=== PATIENT | female | born 1965 | race Caucasian/White ===

== ENCOUNTER 2024-05-14 10:50 | Outpatient (REF) | payer OTHER, SELFPAY ==
--- NOTE | 2024-05-14 10:00 | ENDOMET_PTH ---
PATIENT: Fatoumata Lewis LOC: [facility] U#:[id number] AGE/SX: 58/F ROOM: RE05/14/[address]: Susana Grey MD : 1965 BED: DIS: 05/14/2024 SPEC #: [id number] RECD: 05/14/24 12:45 STATUS: YASMIN REQ #: [id number] CHIP: 05/14/24 10:[address]: Susana Grey DEPT: Surgical Specimen RECD BY: Farideh Vasquez ENTERED: 05/14/24 12:45 SP TYPE: Endomet OTHR DR: Unknown,Unknown Tissues: 1 - ENDOMETRIUM BX/JASONETTE Procedures: GROSS AND MICRO LEVEL 4 IMMUNOPEROXIDASE STAIN Comments: [id number] (PLEASE NEAL, STAT)
== END 2024-05-14 10:51 | disposition home or self-care (01) ==
LOC: LBN 10:50
PROVIDERS: Visit Provider Obstetrics & Gynecology
DX: N93.9 Abnormal uterine and vaginal bleeding, unspecified (principal); D07.0 Carcinoma in situ of endometrium
CPT/HCPCS: 88305; 88361

== ENCOUNTER 2024-09-08 14:58 | Outpatient (CLI) | payer OTHER, SELFPAY ==
[2024-09-08 12:38] LABS: CREATININE 0.7 mg/dL (0.55-1.02); Estimated GFR 100.19 (mL/min/1.73m2)
--- OUTSIDE RECORDS SUMMARY | 2024-09-08 15:01 | XMS_ITS | Encounter Summary ---
Author Organization [facility] Address [facility] [place] [address] Care Team Providers Care Line Service Technician Name Role Phone Rena Flower Primary Care Provider + Reason for Referral * Consultation (Routine) - New Request Specialty Diagnoses / Procedures Referred By Everett mendiola Referred To Contact Radiation Oncology Diagnoses Endometrial cancer Procedures Simulation for Radiation Therapy Planning Serina Bolivar MD [facility] [place] [address] [facility] Rad Onc Office [address] [place] [phone] Referral ID Status Reason Start Date Expiration Date Visits Requested Visits Authorized [id number] New Request Consult, Test & Treat 09/08/2024 09/08/2025 1 1 Reason for Visit * Consultation (Routine) - Closed Specialty Diagnoses / Procedures Referred By Contac t Referred To Contact Radiation Oncology Diagnoses Endometrial cancer Krissy Davies MD [facility] [place] [address] Serina Bolivar MD [address] [place] [address] [place] [address] Referral ID Status Reason Start Date Expiration Date V isits Requested Visits Authorized [id number] Closed Consult, Test & Treat 09/02/2024 09/02/2025 1 1 Encounter Details Date Type Department Care Team (Late st Contact Info) Description 09/08/2024 11:00 AM EST Office Visit Radiation Oncology at [address] [phone] Serina Bolivar MD [facility] [place] [address] Endometrial cancer Social History Tobacco Use Types Packs/Day Years Used Date Smoking Tobacco: Former Cigarettes B1300 Health Literacy Answer Date Recor ded How often do you need to hav e someone help you when you read instructions, pamphlets, or other written material from your doctor or pharmacy? Never 09/01/2024 [facility] Utilities Answer Date Recorded In the past 12 months has th e electric, gas, oil, or water company threatened to shut off services in your home? No 09/01/2024 Overall Financial Resource Strain (CARDIA) Answe r Date Recorded How hard is it for you to pa y for the very basics like food, housing, medical care, and heating? Not very hard 09/01/2024 Hunger Vital Sign Answer Date Recorded Within the past 12 months, y ou worried that your food would run out before you got the money to buy more. Never true 09/01/19 25 Within the past 12 months, t he food you bought just didn't last and you didn't have money to get more. Never true 09/01/2024 PRAPARE - Transportation Answer Date Re corded In the past 12 months, has l ack of transportation kept you from medical appointments or from getting medications? No 08/20 In the past 12 months, has l ack of transportation kept you from meetings, work, or from getting things needed for daily living? No 09/01/2024 Housing Stability Vital Sign Answer Deep e Recorded In the last 12 months, was t here a time when you were not able to pay the mortgage or rent on time? No 09/01/2024 Number of Times Moved in the Last Year Not on fi le 09/01/2024 At any time in the past 12 m [facility], were you homeless or living in a retirement (including now)? No 09/01/2024 Sex and Gender Information Value Date Recorded Sex Assigned at Not on file Gender Identity Not on file Sexual Orientation Not on file documented as of this encounter Plan of Treatment Upcoming Encounters Date Type Department Care Team (Late st Contact Info) Description 09/09/2024 8:30 AM EST Scheduled View Only Radiation Oncology at [address] [phone] [facility] 09/09/2024 9:00 AM EST Ancillary Appointment Radiation Oncology at [address] [phone] Serina Bolivar MD [facility] [place] [address] 09/09/2024 9:00 AM EST Scheduled View Only Radiation Oncology at [address] [phone] Scheduled Orders Name Type Priority Associated Diagnoses Orde r Schedule Creatinine Lab Routine Endometrial cancer Expected: 09/08/2024, Expires: 03/10/2025 Simulation for Radiation Therapy Planning Radiation Oncology Routine Endometrial cancer Expected: 09/09/2024, Expires: 03/11/2025 documented as of this encounter Visit Diagnoses Diagnosis Endometrial cancer Malignant neoplasm of corpus uteri, except isthmus documented in this encounter Care Teams Line Service Technician Relationship Specialty Start Date End Date Rena Flower PA [address] [place] [address] [place] [address] PCP - General Internal Medicine 08/11/24 documented as of this encounter
--- OUTSIDE RECORDS SUMMARY | 2024-09-08 15:01 | XMS_ITS | Encounter Summary ---
Author Organization Formerly [facility] [place] [address] Care Team Providers Care Mechanical Lead Name Role Phone Rena Flower Primary Care Provider + Reason for Referral * Consultation (Routine) - Closed Specialty Diagnoses / Procedures Referred By Everett mendiola Referred To Contact Radiation Oncology Diagnoses Endometrial cancer Krissy Davies MD [facility] [place] [address] Serina Bolivar MD [address] [place] [address] [place] [address] Referral ID Status Reason Start Date Expiration Date V isits Requested Visits Authorized [id number] Closed Consult, Test & Treat 09/02/2024 09/02/2025 1 1 Reason for Visit * Reason Comments Radiation Consult * Consultation (Routine) - Closed Specialty Diagnoses / Procedures Referred By Contac t Referred To Contact Radiation Oncology Diagnoses Malignant neoplasm of endometrium Marianna Bansal MD [address] [place] [address] [address] [place] [address] [facility] [place] [address] Referral ID Status Reason Start Date Expiration Date V isits Requested Visits Authorized [id number] Closed Consult, Test & Treat 08/12/2024 08/12/2025 1 1 Encounter Details Date Type Department Care Team (Late st Contact Info) Description 09/01/2024 11:00 AM EST Office Visit Radiation Oncology at [facility] [place] [address] Krissy Davies MD [facility] [place] [address] Endometrial cancer Social History Tobacco Use Types Packs/Day Years Used Date Smoking Tobacco: Former Cigarettes Tobacco Cessation:Counseling Given: Not Answered B1300 Health Literacy Answer Date Recor ded How often do you need to hav e someone help you when you read instructions, pamphlets, or other written material from your doctor or pharmacy? Never 09/01/2024 [facility] Utilities Answer Date Recorded In the [...] any time in the past 12 m [facility], were you homeless or living in a [facility] (including now)? No 09/01/2024 Sex and Gender Information Value Date Recorded Sex Assigned at Not on file Gender Identity Not on file Sexual Orientation Not on file documented as of this encounter Last Filed Vital Signs Vital Sign Reading Time Taken Comments Blood Pressure 134/72 09/01/2024 10:30 AM EST Pulse 74 09/01/2024 10:30 AM EST Temperature 36.2 ??C (97.1 ??F) 09/01/2024 10:[address] Respiratory Rate 21 09/01/2024 10:30 AM EST Oxygen Saturation 100% 09/01/2024 10:30 AM EST Inhaled Oxygen Concentration - - Weight 69.9 kg (154 lb 3.2 oz) 09/01/2024 10:30 AM EST Height - - Body Mass Index - - documented in this encounter Progress Notes * Lyric Juarez, RN - 09/01/2024 11:00 AM EST RADIATION ONCOLOGY NURSING INITIAL NURSING ASSESSMENT IDENTIFICATION: Fatoumata Lewis is a 58 y.o. female with Endometrial Cancer FIGO grade 3 llC PRESENTING SYMPTOMS/CHIEF COMPLAINT: Pain in pelvis continues with abnormal bleeding 04/12 [facility] Total Hysterectomy 07/02/24 MD Marianna Chambers [facility] Smoking History: Yes Quit 10 years 2013 0.5 pack years Drug History: No Alcohol History: Yes 2 beers a day Family History of Cancer: Sister Polycythemia PGM Breast Cancer MGF Unknown Squamous Cell Cancer Menarche age: 12 Any oral contraceptive use: yes < than year Currently : No history: G 3 P 2 Age at 1st delivery: 19 Breast feeding: No Menopause age: 11/24 Previous breast biopsies: Hormones:No Colonoscopy : None - Yes to Cologuard REVIEW OF SYSTEMS: Review of Systems Constitutional: Positive for fatigue (Post surgery 07/02/24). HENT: Negative. Eyes: Positive for eye problems (prescription glasses). Respiratory: Negative. Cardiovascular: Negative. Gastrointestinal: Positive for constipation. Endocrine: Negative. Genitourinary: Positive for hematuria (slight - one panty liner a day), menstrual problem (LMP 07/13), pelvic pain (Histroy of pelvic discomfort pre Hysterectomy) and vaginal bleeding (very small amount post surgery one pany liner a day). Musculoskeletal: Positive for back pain (history of back issues). Skin: Positive for rash (History of Psoriasis scalp). Neurological: Negative. Hematological: Bruises/bleeds easily. Psychiatric/Behavioral: Positive for depression (Medication Citalopram). The patient is nervous/anxious. IN THE PAST 12 MONTHS HAVE YOU: Fallen more than one time? No Injured yourself as result of the fall? No Experienced difficulty with walking/problems with balance? No Do you use any assistive devices? No Any history of collagen vascular diseases:No Any Implanted Devices/Hardware: No If yes please put alert in ARIA patient summary Prior Radiotherapy: No Prior Chemotherapy: No Prior Hormone Therapy: No LEARNING ASSESSMENT REVIEWED: ADVANCED DIRECTIVE: None Pateint states she has the information to fill out PAIN ASSESSMENT: [0] out of 10 *eD-H Adult PCS Flow Sheet if 4 or above SOCIAL ASSESSMENT: See [facility] social assessment information entered. Support Systems: to Imtiaz Lewis for 10 years Barriers to treatment: Patient lives in [facility] 3 hours away. [facility] Referrals/Interventions: None at this time RADIATION SPECIFIC TEACHING: Yes [facility]iation [facility] and You Site specific teaching : Other: PLAN: New patient consult with Dr Krissy Davies * Rian Wilde - 09/01/2024 11:00 AM EST Images from the original note were not included. RADIATION ONCOLOGY CONSULT NOTE Date: 09/01/24 Patient name: Fatoumata Lewis Provider: Krissy Davies MD Consult Requested by: Marianna Bansal MD Diagnosis: Endometrioid adenocarcinoma of the uterus, grade III, pT2N0(sn)M0, FIGO stage II (2018) Treatment Summary: 1. Robot-assisted TLH/BSO with bilateral SLNBx (07/02/2024) History of Presenting Illness: Fatoumata Lewis is a 58 y.o. female with a recent diagnosis of an endometrioid adenocarcinoma ofthe uterus, who presents for consultation regarding the role of radiation therapy in the managementof her malignancy. According to the patient, she initially presented with complaints of postmenopausal bleeding of oneyear duration. Pelvic ultrasound (05/09/2024) revealed a thickened endometrial stripe of 2.1 cm and possible endometrial mass with invasion into the myometrium. Subsequent endometrial biopsy (05/14/2024) revealed a poorly differentiated carcinoma, favoring an endometrioid type, possibly with a POLE mutation given the histological appearance. Staging CT chest (06/11/2024), abdomen and pelvis (05/29/2024) identified the known endometrial cancer as well as a borderline left external iliac node, without definitive evidence of lymphadenopathy or metastatic disease. She subsequently underwent a robot-assisted diagnostic TLH/BSO with bilateral SLNBx (07/02/2024). Surgical pathology confirmed a gradeIII endometrioid adenocarcinoma of the uterus with 20/26mm (77%) myometrial invasion. The lower uterine segment and cervical stroma was involved and extensive LVSI was present. 0/6 lymph nodes were involved. She presents today for a second opinion on consideration of adjuvant radiation. Upon review of systems, the patient is recovering well from surgery and denied any major complaintsat this time. Reports some fatigue as well as intermittent vaginal discharge. Denied any vaginal bleeding. Denied any abdominal/pelvic pain, urinary frequency or urgency, diarrhea, bloody or dark stool. Also denied any loss of appetite or involuntary weight loss. The patient has no history of connective tissue diseases or implanted devices and has never had radiation for any reason. Family history is significant for breast cancer in her paternal grandmother, small-cell lung cancer in her paternal grandfather, and polycythemia vera in her sister. Patient is a former smoker, and quit 10 years ago. Review of Systems: Review of Systems Constitutional: Positive for malaise/fatigue. Negative for anorexia, diaphoresis, fever, weight loss and chills. Respiratory: Negative for cough, shortness of breath and chest discomfort. Genitourinary: Positive for vaginal discharge. Negative for stress incontinence and urge incontinence. Gastrointestinal: Positive for constipation. Negative for abdominal discomfort, vomiting, nausea and diarrhea. Psychiatric/Behavioral: Positive for depression and physiological symptoms of anxiety. Musculoskeletal: Positive for joint pain. Negative for stiffness and myalgias. Cardiovascular: Negative for palpitations and near-syncope. Neurological: Negative for headaches. There are no problems to display for this patient. No past medical history on file. No past surgical history on file. Medications 09/01/24 1030 Medication Sig Taking? VITAMIN B COMPLEX-100 ORAL Take 1 tablet by mouth Daily @ 0600. Yes acetaminophen (Tylenol) 500 mg tablet Take 1,000 mg by mouth Every 8 hours as needed. Yes cholecalciferoL (Vitamin D3) 1,000 unit tablet Take 1,000 Units by mouth Daily @ 0600. Yes citalopram (CeleXA) 20 mg tablet Take 10 mg by mouth Daily @ 0600. Yes DOCOSAHEXAENOIC ACID ORAL Take by mouth. Yes docusate sodium (Colace) 100 mg capsule Take 1 capsule by mouth 2 times daily as needed. Yes ibuprofen (Advil) 800 mg tablet Take 800 mg by mouth Every 8 hours as needed. Yes magnesium oxide (Mag-Ox) 400 mg (241.3 mg magnesium) Tablet Take 400 mg by mouth Daily @ 0600. Yes polyethylene glycoL (Miralax) 17 gram oral powder packet Take 17 g by mouth daily. Yes No Known Allergies Social History Socioeconomic History Marital status: Spouse name: Not on file Number of children: 2 Years of education: 12 Highest education level: Not on file Occupational History Not on file Tobacco Use Smoking status: Former Types: Cigarettes Smokeless tobacco: Not on file Vaping Use Vaping status: Never Used Substance and Sexual Activity Alcohol use: Not on file Drug use: Not on file Sexual activity: Not on file Other Topics Concern Not on file Social History Narrative Not on file Social Determinants of Health Financial Resource Strain: Low Risk (09/01/2024) Overall Financial Resource Strain (CARDIA) Difficulty of Paying Living Expenses: Not very hard Food Insecurity: No Food Insecurity (09/01/2024) Hunger Vital Sign Worried About Running Out of Food in the Last Year: Never true Ran Out of Food in the Last Year: Never true Transportation Needs: No Transportation Needs (09/01/2024) PRAPARE - Transportation Lack of Transportation (Medical): No Lack of Transportation (Non-Medical): No Physical Activity: Not on file Intimate Partner Violence: Not on file Housing Stability: Unknown (09/01/2024) Housing Stability Vital Sign Unable to Pay for Housing in the Last Year: No Number of Times Moved in the Last Year: Not on file Homeless in the Last Year: No No family history on file. Physical Examination: Visit Vitals BP 134/72 (Patient Position: Sitting) Pulse 74 Temp 36.2 ??C (97.1 ??F) (Temporal) Resp 21 Wt 69.9 kg (154 lb 3.2 oz) SpO2 100% Physical Exam Constitutional: General: She is not in acute distress. Appearance: Normal appearance. HENT: Head: Normocephalic and atraumatic. Eyes: Extraocular Movements: Extraocular movements intact. Pupils: Pupils are equal, round, and reactive to light. Pulmonary: Effort: Pulmonary effort is normal. Genitourinary: Comments: MANAGER SUPPORT examination deferred Musculoskeletal: General: Normal range of motion. Cervical back: Neck supple. Skin: General: Skin is warm and dry. Neurological: General: No focal deficit present. Mental Status: She is alert. Psychiatric: Mood and Affect: Mood normal. Imaging and Labs: SURGICAL PATHOLOGY (05/14/2024) A. ENDOMETRIUM, BIOPSY: - Endometrial carcinoma, high-grade. See comment Histologic sections show a poorly differentiated carcinoma in a sheet-like growth pattern. No overtgland formation is appreciated, but focal dyskeratotic cells and areas suspicious for keratinization are present. The tumor does not demonstrate marked pleomorphism, but does have areas of necrosis and scattered single large atypical cells. The majority of the sample contains sheets of moderately sized cells with increased N/C ratios, irregular nuclear contours, and prominent nucleoli. Abundant apoptotic debris and mitotic figures are present. Smooth muscle is also present, but is favored to represent benign intervening fibers and not a sarcomatous element. Immunohistochemically, the lack of p16 and p63 expression argues against a cervical squamous cell carcinoma. The presence of diffuse pancytokeratin argues against a dedifferentiated endometrial carcinoma, however with a lack of ER expression, this is not entirely excluded. The lack of aberrant p53 argues against a solid variant of serous carcinoma. The increased Ki-67 supports the morphologic impression of a high-grade lesion. MMR testing is retained, see interpretation below. Taken together, the immunohistochemical staining and the morphologic impression favor a high-grade endometrial adenocarcinoma with features concerning for myoinvasion. The differential includes endometrioid type, FIGO Grade 3; however, the morphology and immunohistochemistry pattern defies clear classification, raising the possibility of a POLE-mutated carcinoma (PMID: 56727506). Further evaluation may help inform molecular tumor classification, and can be pursued upon request. Scale Model Maker slides of this case were reviewed at the intradepartmental consultation conference. CT ABDOMEN AND PELVIS WITH IV CONTRAST (05/29/2024) IMPRESSION: 1. Heterogeneously hypoenhancing mass centered within the uterus consistent with pathology proven endometrial cancer. 2. Borderline enlarged left external iliac lymph nodes measure up to 0.9 cm short axis. These may be reactive or could represent hilton spread of malignancy. 3. Atherosclerosis CT CHEST (06/11/2024) IMPRESSION: No specific finding of metastasis, noting very small indeterminate solid pulmonary nodule measuringup to 2 mm which are unlikely to represent metastatic disease. Attention on follow-up is advised. RECOMMENDATIONS: Follow-up chest CT in 6 months or per clinical protocol. SURGICAL PATHOLOGY (07/02/2024) SPECIMEN Procedure: Total hysterectomy and bilateral salpingo-oophorectomy TUMOR Histologic Type: Endometrioid carcinoma, NOS Histologic Grade: FIGO grade 3 Myometrial Invasion: Present Depth of Myometrial Invasion: 20 mm Myometrial Thickness: 26 mm Percentage of Myometrial Invasion: Estimated to be 50% or greater Uterine Serosa Involvement: Not identified Lower Uterine Segment Involvement: Present, myoinvasive Cervical Stromal Involvement: Present Depth of Cervical Stroma Invasion: 10.0 mm Cervical Stroma Thickness: 16.0 mm Other Tissue / Organ Involvement: Not identified Peritoneal / Ascitic Fluid: Negative for malignant cells Lymphatic and / or Vascular Invasion: Present : Extensive / substantial (greater than or equal to 5 vessel involvement) MARGINS Margin Status: All margins negative for invasive carcinoma Closest Margin(s) to Invasive Carcinoma: Parametrial / paracervical Distance from Invasive Carcinoma to Closest Margin: At least: 6.0 mm REGIONAL LYMPH NODES Regional Lymph Node Status: : All regional lymph nodes negative for tumor cells Lymph Nodes Examined: Total Number of Pelvic Nodes Examined: 6 Number of Pelvic [place] Nodes Examined: 6 Total Number of Para-aortic Nodes Examined: 1 Number of Para-aortic [place] Nodes Examined: 1 pTNM CLASSIFICATION (AJCC 8th Edition) Reporting of pT, pN, and (when applicable) pM categories is based on information available to the pathologist at the time the report is issued. As per the AJCC (Chapter 1, 8th Ed.) it is the managingphysician???s responsibility to establish the final pathologic stage based upon all pertinent information, including but potentially not limited to this pathology report. pT Category: pT2 pN Category: pN0 N Suffix: (sn) FIGO STAGE FIGO Stage: IIC Assessment: Fatoumata Leiws is a 58 y.o. female with a recent diagnosis of an endometrioid adenocarcinoma of the uterus, who presents for consultation regarding the role of radiation therapy in the management of her malignancy. She was found to have several risk factors that put her at a higher risk for recurrence including high-grade, deep myometrial invasion, cervical stromal invasion and extensive LVSI. Extensive LVSI in particular has been shown to be a strong independent prognostic factorfor pelvic regional recurrences (PMID: 41082832; PMID: 61903690). As such, NCCN guidelines recommend external beam radiation as the preferred approach in these patients. In line with this, my recommendation is for 45Gy/25fx to the pelvis. The techniques, indications, risks and benefits of radiation therapy were explained to the patient at length and she expressed understanding. All questions were answered to her satisfaction and she is amenable to proceeding with pelvic radiation. As she lives in [place], [place] she would like to consider treatment closer to home. We will therefore refer her to Dr. Serina Bolivar at our [facility] facility for discussion of treatment. We look forward to seeing Ms. Lewis again if there is anything that we can do to be of assistancein the future. Plan: - Referral to Dr. Serina Bolivar The consultation time was 60 minutes, 45 minutes in counseling. Thank you, Dr. Marianna Bansal , for allowing us to participate in the care of this pleasant patient. Rian Sandoval, PhD MD-PhD M3 medical student Radiation Oncology 09/01/24 I have seen the patient in person and reviewed the student's above history and I agree with the details as written. The assessment and plan were formulated in discussion with me and I agree with themas documented. Krissy Davies MD 09/02/24 documented in this encounter Plan of Treatment Upcoming Encounters Date Type Department Care Team (Late st Contact Info) Description 09/09/2024 8:30 AM EST Scheduled View Only Radiation Oncology at [address] [phone] Rad Nurse[facility] 09/09/2024 9:00 AM EST Ancillary Appointment Radiation Oncology at [address] [phone] Serina Bolivar MD [facility] RAD[facility]ATION [facility]COLOGY [facility] [place] [address] 09/09/2024 9:00 AM EST Scheduled View Only Radiation Oncology at [address] [phone] Scheduled Referrals Name Type Priority Associated Diagnoses Orde r Schedule Referral to Radiation Oncology Outpatient Referral Routine Endometrial cancer Ordered: 09/02/2024 documented as of this encounter Visit Diagnoses Diagnosis Endometrial cancer Malignant neoplasm of corpus uteri, except isthmus documented in this encounter Care Teams Mechanical Lead Relationship Specialty Start Date End Date Rena Flower PA [address] [place] [address] [place] [address] PCP - General Internal Medicine 08/11/24 documented as of this encounter
--- OUTSIDE RECORDS SUMMARY | 2024-09-08 15:01 | XMS_ITS | Encounter Summary ---
Author Organization [facility] Prabhakar [place] [address] Care Team Providers Care Highway Research Engineer Name Role Phone Unavailable Primary Care Provider Unavailabl e Encounter Details Date Type Department Care Team (Late st Contact Info) Description 06/11/2024 Ancillary Procedure Radiology Library at [facility] [place] [address] Lazaro Borjas MD [facility] [place] [address] Social History Tobacco Use Types Packs/Day Years Used Date Smoking Tobacco: Never Assessed Sex and Gender Information Value Date Recorded Sex Assigned at Not on file Gender Identity Not on file Sexual Orientation Not on file documented as of this encounter Plan of Treatment Upcoming Encounters Date Type Department Care Team (Late st Contact Info) Description 09/09/2024 8:30 AM EST Scheduled View Only Radiation Oncology at [address] [phone] St Kevin Reyes 09/09/2024 9:00 AM EST Ancillary Appointment Radiation Oncology at [address] [phone] Serina Bolivar MD [facility] [place] [address] 09/09/2024 9:00 AM EST Scheduled View Only Radiation Oncology at [address] [phone] documented as of this encounter Procedures Procedure Name Priority Date/Time Associated Diagnosis Comments FILM LIBRARY STORAGE ONLY CT CHEST Routine 06/11/2024 12:00 AM EDT documented in this encounter Results * Film Library- Storage Only CT Chest (06/11/2024 12:00 AM EDT) 07/19/2024 9:23 PM EST Narrative RAD - 07/19/2024 9:23 PM EST This exam is auto-finalizing. It's purpose is for storage only. Lazaro Borjas MD IMG FILM LIBRARY ORD ERABLES [place], [place] documented in this encounter Visit Diagnoses Not on filedocumented in this encounter
--- OUTSIDE RECORDS SUMMARY | 2024-09-08 15:01 | XMS_ITS | Continuity of Care Document ---
Author Organization [facility] Address [address] [place] [address] Care Team Providers Care Rubber Thread Spooler Name Role Phone Ching Rena C Primary Care Physician [phone] Encounter [facility] Date(s): 04/16/24 - 04/16/[address] [address] Discharge Disposition: Home Allergies, Adverse Reactions, Alerts No Known Medication Allergies Assessment and Plan Future Appointments Future Scheduled Tests Radiology* MG Mammo Screening Bilateral w/ Jean Claude 04/16/24 * US Pelvic Non OB Comp w/ Transvag 04/16/24 Immunizations Given and Recorded Vaccine Date Status Refusal Reason SARS-CoV-2 (COVID-19) mRNA-1273 vaccine 11/16/20 R ecorded SARS-CoV-2 (COVID-19) mRNA-1273 vaccine 10/18/20 R ecorded influenza virus vaccine, live 06/18/20 Recorded tetanus/diphth/pertuss (Tdap) adult/adol 05/02/19 Recorded Medications citalopram 20 mg oral tablet 20 mg = 1 tab, Oral, Daily, # 90 tab, 3 Refill(s), Pharmacy: [id number] Start Date: 02/12/23 Status: Ordered clotrimazole 1% topical cream 1 ade, Topical, BID, apply to affected and surrounding areas of skin topically two times per day once in morning and evening, # 15 g, 0 Refill(s) Start Date: 02/03/22 Status: Ordered garlic See Instructions, 0 Refill(s) Start Date: 02/22/23 Status: Ordered magnesium oxide 250 mg oral tablet 250 mg = 1 tab, Oral, Daily, 0 Refill(s) Start Date: 02/03/22 Status: Ordered [place]-3 Fish Oil 1,000 mg =, Oral, BID, 0 Refill(s) Start Date: 02/03/22 Status: Ordered Vitamin B Complex 100 1 daily, 0 Refill(s) Start Date: 04/16/24 Status: Ordered Vitamin D3 25 mcg =, Oral, Daily, 0 Refill(s) Start Date: 02/03/22 Status: Ordered Problem List Condition Confirmation Course Effective Dates Status Health St atus Informant Constipation Confirmed 11/29/18 Active Low back pain Confirmed 11/29/18 Active Mixed anxiety and depressive disorder Confirmed 11/29/18 Active Well adult exam Confirmed Active Screening for breast cancer Confirmed Active Screening for colon cancer Confirmed Active Social History Social History Type Response Tobacco Former tobacco user Tobacco Use:. 1/2 ppd x 10 years, quit for 10 years, 1/2 x 6 years per day. Total pack years: 8. 1 Sex Female Sex Representation Female (finding) 1quit aug 2014 Patient Care team information Care Team Personnel Name: Rena Flower Position: Physician Member Role: Primary Care Physician Address: [facility] [place] [address]- Care Team Related Persons Name: RIVER OBANDO Insurance Providers Guarantor name: RANJAN OBANDO Health Plan Information #: 1 Payer: [employer] Member Number: NA Policy Number: NA Health Plan Information #: 2 Payer: [facility] Member Number: NA Policy Number: NA
--- OUTSIDE RECORDS SUMMARY | 2024-09-08 15:01 | XMS_ITS | Continuity of Care Document ---
Author Organization [facility] Address [address] [place] [address] Care Team Providers Care Acupuncture Physician Name Role Phone Rena Flower Primary Care Physician Encounter [facility]CT[facility]_[place] Date(s): 04/16/24 - 04/16/[address] [address] Discharge Disposition: Home or Self Care Attending Physician: Rena Flower Admitting Physician: Rena Flower Referring Physician: Rena Flower Allergies, Adverse Reactions, Alerts No Known Medication Allergies Assessment and Plan Future Appointments Diagnostic Tests Pending * PAP Test [facility] 04/16/24 Future Scheduled Tests Radiology* MG Mammo Screening [...] Daily, # 90 tab, 3 Refill(s), Pharmacy: [id number] Start Date: 02/12/23 Status: Ordered clotrimazole 1% [...] 0 Refill(s) Start Date: 02/03/22 Status: Ordered [place]-3 Fish Oil 1,000 mg =, Oral, BID, [...] Active Screening for colon cancer Confirmed Active Results Laboratory List Name Date Automated Diff 04/16/24 CBC w/ Diff 04/16/24 Comprehensive Metabolic Panel (CMP) 04/16 FSH [facility] 04/16/24 Lipid Panel 04/16/24 Thyroid Stimulating Hormone (TSH) 4 Most recent to oldest [Reference Range]: 1 WBC [5.0-10.0 x10^3/mcL] 4.9 x10^3/mcL *LOW* (04/16/24 8:42 AM) RBC [4.1-5.3 x10^6/mcL] 4.4 x10^6/mcL (04/16/24 8:42 AM) Neutro Auto [40.0-75.0 %] 43.6 % (04/16/24 8:42 AM) Lymph Auto [20.0-50.0 %] 40.0 % (04/16/24 8:42 AM) Ritchie Auto [2.0-15.0 %] 10.1 % (04/16/24 8:42 AM) Basophil Auto [0.0-1.0 %] 1.0 % (04/16/24 8:42 AM) BUN [7-18 mg/dL] 14 mg/dL (04/16/24 8:42 AM) Cholesterol Total [50-200 mg/dL] 252 mg/ dL *HI* (04/16/24 8:42 AM) LDL [0-130 mg/dL] 139 mg/dL *HI* (04/16/24 8:42 AM) Glucose Level [74-106 mg/dL] 91 mg/dL (04/16/24 8:42 AM) Potassium Level [3.5-5.1 mmol/L] 4.1 mmo l/L (04/16/24 8:42 AM) MCV [80.0-96.0 fL] 94.8 fL (04/16/24 8:42 AM) HDL [40-60 mg/dL] 101 mg/dL *HI* (04/16/24 8:42 AM) AST [15-37 unit/L] 20 unit/L (04/16/24 8:42 AM) ALT [14-59 unit/L] 23 unit/L (04/16/24 8:42 AM) MCHC [31.0-35.0 g/dL] 33.7 g/dL (04/16/24 8:42 AM) Sodium Level [136-145 mmol/L] 141 mmol/L (04/16/24 8:42 AM) Hct [37.0-47.0 %] 41.9 % (04/16/24 8:42 AM) Triglycerides [0-150 mg/dL] 61 mg/dL (04/16/24 8:42 AM) Calcium Level [8.5-10.1 mg/dL] 8.9 mg/dL (04/16/24 8:42 AM) Albumin Level [3.4-5.0 g/dL] 3.8 g/dL (04/16/24 8:42 AM) Protein Total [6.4-8.2 g/dL] 7.8 g/dL (04/16/24 8:42 AM) MCH [26.0-32.0 pg] 31.9 pg (04/16/24 8:42 AM) Neutro Absolute 2.1 x10^3/mcL *NA* (04/16/24 8:42 AM) Bilirubin Total [0.2-1.0 mg/dL] 0.3 mg/d L (04/16/24 8:42 AM) Hgb [12.0-16.0 g/dL] 14.1 g/dL (04/16/24 8:42 AM) Alk Phos [46-146 unit/L] 77 unit/L (04/16/24 8:42 AM) Platelets [130-450 x10^3/mcL] 233 x10^3/ mcL (04/16/24 8:42 AM) CO2 [21-32 mmol/L] 28 mmol/L (04/16/24 8:42 AM) TSH [0.358-3.740 mcIntlUnit/mL] 2.380 mc IntlUnit/mL (04/16/24 8:42 AM) eGFR Non-AA [>=60] 108 (04/16/24 8:42 AM) eGFR AA [>=60] 108 (04/16/24 8:42 AM) Chloride Level [98-107 mmol/L] 104 mmol/ L (04/16/24 8:42 AM) RDW-CV [11.5-14.5 %] 12.2 % (04/16/24 8:42 AM) Imm Gran Auto [0.0-0.9 %] 0.2 % (04/16/24 8:42 AM) Creatinine Level [0.55-1.02 mg/dL] 0.52 mg/dL *LOW* (04/16/24 8:42 AM) [facility]SH [facility] [See Note mIntlUnit/mL] 110.6 mI ntlUnit/mL 1 *NA* (04/16/24 8:42 AM) Eos, Auto [1.0-6.0 %] 5.1 % (04/16/24 8:42 AM) 1Result Comment: NOTE: Female [facility]SH Reference Ranges (Menstruating): PHYSIOLOGICAL STATUS REFERENCE RANGE Follicular (-12 to -4 days): 2.5 - 10.2 mIU/mL Midcycle (-3 to +2 days): 3.4 - 33.4 mIU/mL Luteal (+4 to +12 days): 1.5 - 9.1 mIU/mL Postmenopausal: 23.0 - 116.3 mIU/mL Reference Ranges for pediatric non-menstruating female patients have not been established. Test performed [place] [address] Social History Social History Type Response Tobacco Former tobacco user Tobacco Use:. 1/2 ppd x 10 years, quit for 10 years, 1/2 x 6 years per day. Total pack years: 8. 1 Sex Female Sex Representation Female (finding) 1quit aug 2014 Patient Care team information Care Team Personnel Name: Rena Floewr Position: Physician Member Role: Primary Care Physician Address: [facility] [place] [address]- Care Team Related Persons Name: RIVER OBANDO Insurance Providers Guarantor name: RANJAN OBANDO Health Plan Information #: 1 Payer: [employer] Member Number: [id number] Policy Number: NA Health Plan Information #: 2 Payer: [employer] Member Number: NA Policy Number: NA Health Plan Information #: 3 [facility] Member Number: [id number] Policy Number: NA
--- OUTSIDE RECORDS SUMMARY | 2024-09-08 15:01 | XMS_ITS | Encounter Summary ---
Author Organization [facility] [place] [address] Care Team Providers Care Aromatherapist Name Role Phone Unavailable Primary Care Provider Unavailabl e Encounter Details Date Type Department Care Team (Late st Contact Info) Description 06/11/2024 Interpretation Only Radiology Library at [facility] [place] [address] Lazaro Borjas MD [facility] [place] [address] Social History Tobacco Use Types Packs/Day Years [...] EST Scheduled View Only Radiation Oncology at [address] [phone] St Kevin Reyes 09/09/2024 9:00 AM EST Ancillary Appointment Radiation Oncology at [address] [phone] Serina Bolivar MD [facility] [place] [address] 09/09/2024 9:00 AM EST Scheduled View Only Radiation Oncology at [address] [phone] documented as of this encounter Procedures Procedure [...] Borjas MD IMG FILM LIBRARY ORD ERABLES [place], [place] documented in this encounter Visit Diagnoses Not on filedocumented in this encounter
--- OUTSIDE RECORDS SUMMARY | 2024-09-08 15:01 | XMS_ITS | Continuity of Care Document ---
Author Organization [facility] Address [address] [place] [address] Care Team Providers Care Dinkey Locomotive Engineer Name Role Phone ChelseaaniaRena holley Primary Care Physician [phone] Encounter [facility]CTY[place] Date(s): 05/04/23 - 05/04/23 [facility] [address] [place] [address] us Encounter Diagnosis Screening for breast cancer(Discharge Diagnosis) - 05/04/23 Discharge Disposition: Home or Self Care Attending Physician: Viri Myles NP Admitting Physician: Viri Myles NP Referring Physician: Viri Myles BARK SCALER Allergies, Adverse Reactions, Alerts No Known Medication Allergies Assessment and Plan Future Appointments Future Scheduled Tests Laboratory* Basic Metabolic Panel 02/22/23 * Lipid Panel 02/22/23 Immunizations Given and Recorded Vaccine Date Status Refusal Reason SARS-CoV-2 (COVID-19) mRNA-1273 vaccine 11/16/20 R ecorded SARS-CoV-2 (COVID-19) mRNA-1273 vaccine 10/18/20 R ecorded influenza virus vaccine, live 06/18/20 Recorded tetanus/diphth/pertuss (Tdap) adult/adol 05/02/19 Recorded Medications citalopram 20 mg oral tablet 20 mg = 1 tab, Oral, Daily, # 90 tab, 3 Refill(s), Pharmacy: [facility] Start Date: 02/12/23 Status: Ordered clotrimazole 1% topical cream 1 ade, Topical, BID, apply to affected and surrounding areas of skin topically two times per day once in morning and evening, # 15 g, 0 Refill(s) Start Date: 02/03/22 Status: Ordered garlic 0 Refill(s) Start Date: 02/22/23 Status: Ordered magnesium oxide 250 mg oral tablet 250 mg = 1 tab, Oral, Daily, 0 Refill(s) Start Date: 02/03/22 Status: Ordered [place]-3 Fish Oil 1,000 mg =, Oral, BID, 0 Refill(s) Start Date: 02/03/22 Status: Ordered Vitamin D3 25 mcg =, Oral, Daily, 0 Refill(s) Start Date: 02/03/22 Status: Ordered vitamin E 400 intl units oral capsule 400 IntlUnit = 1 cap, Oral, Daily, 0 Refill(s) Start Date: 02/03/22 [...] Response Tobacco Former tobacco user Tobacco Use:. 1 Sex Female 1quit aug 2014 Patient Care team information Care Team Personnel Name: Rena Flower Position: Physician Member Role: Primary Care Physician Address: Address: [facility] Primary Care [address] Care Team Related Persons Name: RIVER OBANDO
--- OUTSIDE RECORDS SUMMARY | 2024-09-08 15:01 | XMS_ITS | Continuity of Care Document ---
Author Organization [facility] Address [address] [place] [address] Care Team Providers Care Degree Clerk Name Role Phone Chelseagriseldaleydi Rena C Primary Care Physician [phone] Encounter [place] Date(s): 06/11/24 - 06/11/[address] [address] Discharge Disposition: Home or Self Care Attending Physician: Marianna Bansal MD Admitting Physician: Marianna Bansal MD Referring Physician: Marianna Bansal MD Allergies, Adverse Reactions, Alerts No Known Medication Allergies Assessment and Plan Future Appointments Future Scheduled Tests Radiology* MG Mammo Screening Bilateral w/ Jean Claude 04/16/24 Immunizations Given and Recorded Vaccine Date Status Refusal Reason SARS-CoV-2 (COVID-19) mRNA-1273 vaccine 11/16/20 R ecorded SARS-CoV-2 (COVID-19) mRNA-1273 vaccine 10/18/20 R ecorded influenza virus vaccine, live 06/18/20 Recorded tetanus/diphth/pertuss (Tdap) adult/adol 05/02/19 Recorded Medications citalopram 20 mg oral tablet 20 mg = 1 tab, Oral, Daily, # 90 tab, 3 Refill(s), Pharmacy: [facility], 162.5, cm, 04/16/24 7:42:00 EDT, Height, 72, kg, 04/16/24 7:55:00 EDT, Weight Dosing Start Date: 04/23/24 Status: Ordered clotrimazole 1% topical cream 1 [...] 0 Refill(s) Start Date: 02/03/22 Status: Ordered [place]-3 Fish Oil 1,000 mg =, Oral, BID, [...] Active Screening for colon cancer Confirmed Active Procedures Procedure Date Related Diagnosis Body Site Status Pap smear and HPV cotesting 1 04/15/24 Completed 1Pap smear 04/16/24 - wnl/negative HPV (f/u 2028) Social History Social History Type Response Tobacco Former tobacco user Tobacco Use:. 1/2 ppd x 10 years, quit for 10 years, 1/2 x 6 years per day. Total pack years: 8. 1 Sex Female Sex Representation Female (finding) 1quit aug 2014 Patient Care team information Care Team Personnel Name: Rena Flower Position: Physician Member Role: Primary Care Physician Address: [facility] Primary Care [address] Care Team Related Persons Name: RIVER OBANDO Insurance Providers Guarantor name: RANJAN OBANDO Health Plan Information #: 1 Payer: [place] Member Number: [id number] Policy Number: NA Health Plan Information #: 2 Payer: [employer] Member Number: NA Policy Number: NA Health Plan Information #: 3 Payer: [employer] Member Number: [id number] Policy Number: NA
--- OUTSIDE RECORDS SUMMARY | 2024-09-08 15:01 | XMS_ITS | Continuity of Care Document ---
Author Organization [facility] Address [address] [place] [address] Care Team Providers Care Reporting Manager Name Role Phone ChelseaRena corcoran Primary Care Physician [phone] Encounter [place]CTY[place] Date(s): 02/26/23 - 04/29/23 [facility] [address] [place] [address] Discharge Disposition: Home or Self Care Attending Physician: Viri Myles NP Admitting Physician: Viri Myles EMBROIDERY PATTERNMAKER Allergies, Adverse Reactions, Alerts No Known Medication Allergies Assessment and Plan Future Appointments Future Scheduled Tests Laboratory* Basic Metabolic Panel 02/22/23 * Lipid Panel 02/22/23 Radiology* MG Mammo Screening Bilateral w/ Jean Claude 02/22/23 Immunizations Given and Recorded Vaccine Date Status Refusal Reason SARS-CoV-2 (COVID-19) mRNA-1273 vaccine 11/16/20 R ecorded SARS-CoV-2 (COVID-19) mRNA-1273 vaccine 10/18/20 R ecorded influenza virus vaccine, live 06/18/20 Recorded tetanus/diphth/pertuss (Tdap) adult/adol 05/02/19 Recorded Medications citalopram 20 mg oral tablet 20 mg = 1 tab, Oral, Daily, # 90 tab, 3 Refill(s), Pharmacy: [facility] Start Date: 02/12/23 Status: Ordered clotrimazole 1% [...] 0 Refill(s) Start Date: 02/03/22 Status: Ordered [place]-3 Fish Oil 1,000 mg =, Oral, BID, [...] Primary Care Physician Address: Address: [facility] Primary Care [address] [address] [place] Care Team Related Persons Name: RIVER OBANDO Address: Home
--- OUTSIDE RECORDS SUMMARY | 2024-09-08 15:01 | XMS_ITS | Continuity of Care Document ---
Author Organization [facility] Address [address] [place] [address] Care Team Providers Care Track Greaser Name Role Phone Rena Flower Primary Care Physician [phone] Encounter [facility]CTY_[place] Date(s): 02/22/23 - 02/22/23 [facility] [address] [place] [address] Discharge Disposition: Home Allergies, Adverse Reactions, Alerts [...] Daily, # 90 tab, 3 Refill(s), Pharmacy: [facility] Start Date: 02/12/23 Status: Ordered clotrimazole 1% [...] 0 Refill(s) Start Date: 02/03/22 Status: Ordered [place]-3 Fish Oil 1,000 mg =, Oral, BID, [...] Member Role: Primary Care Physician Address: Address: [facility] Primary Care [address] [address] [place]
--- OUTSIDE RECORDS SUMMARY | 2024-09-08 15:01 | XMS_ITS | Encounter Summary ---
Author Organization [facility] Address [facility] [place] [address] Care Team Providers Care Software Engineer Developer Name Role Phone Rena Flower Primary Care Provider + Encounter Details Date Type Department Care Team (Latest Contact Info) Description 09/08/2024 Travel Social History Tobacco Use Types Packs/Day Years Used Date Smoking Tobacco: Former Cigarettes B1300 Health Literacy Answer Date Recor ded How often do you need to hav e someone help you when you read instructions, pamphlets, or other written material from your doctor or pharmacy? Never 09/01/2024 [facility] Utilities Answer Date Recorded In the [...] any time in the past 12 m [facility], were you homeless or living in a chcf (including now)? No 09/01/2024 Sex and Gender Information Value Date Recorded Sex Assigned at Not on file Gender Identity Not on file Sexual Orientation Not on file documented as of this encounter Plan of Treatment Upcoming Encounters Date Type Department Care Team (Late st Contact Info) Description 09/09/2024 8:30 AM EST Scheduled View Only Radiation Oncology at [address] [phone] Shaw Nurse Kevin 09/09/2024 9:00 AM EST Ancillary Appointment Radiation Oncology at [address] [phone] Serina Bolivar MD [facility] [place] [address] 09/09/2024 9:00 AM EST Scheduled View Only Radiation Oncology at [address] [phone] documented as of this encounter Visit Diagnoses Not on filedocumented in this encounter Care Teams Software Engineer Developer Relationship Specialty Start Date End Date Rena Flower PA [address] [place] [address] [place] [address] PCP - General Internal Medicine 08/11/24 documented as of this encounter
--- OUTSIDE RECORDS SUMMARY | 2024-09-08 15:01 | XMS_ITS | Encounter Summary ---
Author Organization [facility] Address [facility] [place] [address] Care Team Providers Care Elementary Principal Name Role Phone Rena Flower Primary Care Provider + Encounter Details Date Type Department Care Team (Latest Contact Info) Description 09/01/2024 Travel Social History Tobacco Use Types Packs/Day Years Used Date Smoking Tobacco: Former Cigarettes B1300 Health Literacy Answer Date Recor ded How often do you need to hav e someone help you when you read instructions, pamphlets, or other written material from your doctor or pharmacy? Never 09/01/2024 [facility] Utilities Answer Date Recorded In the past [...] any time in the past 12 m [facility], were you homeless or living in a fpc (including now)? No 09/01/2024 Sex and Gender Information Value Date Recorded Sex Assigned at Not on file Gender Identity Not on file Sexual Orientation Not on file documented as of this encounter Plan of Treatment Upcoming Encounters Date Type Department Care Team (Late st Contact Info) Description 09/09/2024 8:30 AM EST Scheduled View Only Radiation Oncology at [address] [phone] Shaw Nurse Kevin 09/09/2024 9:00 AM EST Ancillary Appointment Radiation Oncology at [address] [phone] Serina Bolivar MD [facility] [place] [address] 09/09/2024 9:00 AM EST Scheduled View Only Radiation Oncology at [address] [phone] documented as of this encounter Visit Diagnoses Not on filedocumented in this encounter Care Teams Elementary Principal Relationship Specialty Start Date End Date Rena Flower PA [address] [place] [address] [place] [address] PCP - General Internal Medicine 08/11/24 documented as of this encounter
--- OUTSIDE RECORDS SUMMARY | 2024-09-08 15:01 | XMS_ITS | Encounter Summary ---
Author Organization [facility] Address [facility] [place] [address] Care Team Providers Care Fluid Jet Cutter Operator Name Role Phone Rena Flower Primary Care Provider + Encounter Details Date Type Department Care Team (Late st Contact Info) Description 09/04/2024 Telephone Radiation Oncology at [address] [phone] Bushra Oneill Social History Tobacco Use Types Packs/Day Years Used Date Smoking Tobacco: Former Cigarettes B1300 Health Literacy Answer Date Recor ded How often do you need to hav e someone help you when you read instructions, pamphlets, or other written material from your doctor or pharmacy? Never 09/01/2024 [facility] Utilities Answer Date Recorded In the past [...] any time in the past 12 m [place], were you homeless or living in a [...] EST Scheduled View Only Radiation Oncology at [address] [phone] [facility] Nurse[facility] Brown 09/09/2024 9:00 AM EST Ancillary Appointment Radiation Oncology at [address] [phone] Serina Bolivar MD [facility] [place] [address] 09/09/2024 9:00 AM EST Scheduled View Only Radiation Oncology at [address] [phone] documented as of this encounter Visit Diagnoses Not on filedocumented in this encounter Care Teams Fluid Jet Cutter Operator Relationship Specialty Start Date End Date Rena Flower PA [address] [place] [address] [place] [address] PCP - General Internal Medicine 08/11/24 documented as of this encounter
--- OUTSIDE RECORDS SUMMARY | 2024-09-08 15:01 | XMS_ITS | Clinical Summary ---
Author Organization [facility] Address [facility] [place] [address] Care Team Providers Care Mainframe Developer Name Role Phone Rena Flower Primary Care Provider + Allergies No known active allergies Medications Medication Sig Dispensed Refills Start Date End Date Status VITAMIN B COMPLEX-100 ORAL Take 1 tablet by mouth Daily @ 0600. 04/16/2024 Active acetaminophen (Tylenol) 500 mg tablet Take 1,000 mg by mouth Every 8 hours as needed. 07/03/2024 Active cholecalciferoL (Vitamin D3) 1,000 unit tablet Take 1,000 Units by mouth Daily @ 0600. Active citalopram (CeleXA) 20 mg tablet Take 10 mg by mouth Daily @ 0600. Active DOCOSAHEXAENOIC ACID ORAL Take by mouth. Active docusate sodium (Colace) 100 mg capsule Take 1 capsule by mouth 2 times daily as needed. 07/03/2024 Active ibuprofen (Advil) 800 mg tablet Take 800 mg by mouth Every 8 hours as needed. 07/03/2024 Active magnesium oxide (Mag-Ox) 400 mg (241.3 mg magnesium) Tablet Take 400 mg by mouth Daily @ 0600. Active polyethylene glycoL (Miralax) 17 gram oral powder packet Take 17 g by mouth daily. Active Active Problems Problem Noted Date Diagnosed Date Endometrial cancer 09/02/2024 Encounters Date Type Department Care Team Description 09/08/2024 11:00 AM EST Office Visit Radiation Oncology at [address] [phone] Serina Bolivar MD Endometrial cancer 09/08/2024 Travel 09/04/2024 Telephone Radiation Oncology at [address] [phone] Bushra Oneill 09/01/2024 11:00 AM EST Office Visit Radiation Oncology at [facility] [place] [phone] Krissy Davies MD Endometrial cancer 09/01/2024 Travel 06/11/2024 Ancillary Procedure Radiology Library at [facility] [place] [phone] Lazaro Borjas MD 06/11/2024 Interpretation Only Radiology Library at [facility] [place] [address] Lazaro Borjas MD from Last 3 Months Social History Tobacco Use Types Packs/Day Years Used Date Smoking Tobacco: Former Cigarettes Tobacco Cessation:Counseling Given: Not Answered B1300 Health Literacy Answer Date Recor ded How often do you need to hav e someone help you when you read instructions, pamphlets, or other written material from your doctor or pharmacy? Never 09/01/2024 [facility] Utilities Answer Date Recorded In the past 12 months has th e [employer], gas, oil, or water [employer] threatened to shut off services in your [...] any time in the past 12 m [facility], were you homeless or living in a longterm (including now)? No 09/01/2024 Sex and Gender Information Value Date Recorded Sex Assigned at Not on file Gender Identity Not on file Sexual Orientation Not on file Last Filed Vital Signs Vital Sign Reading [...] - - Body Mass Index - - Plan of Treatment Upcoming Encounters Date Type Department Care Team (Late st Contact Info) Description 09/09/2024 8:30 AM EST Scheduled View Only Radiation Oncology at [address] [phone] Rad NurseSt Brown 09/09/2024 9:00 AM EST Ancillary Appointment Radiation Oncology at [address] [phone] Serina Bolivar MD [facility] [place] [address] 09/09/2024 9:00 AM EST Scheduled View Only Radiation Oncology at [address] [phone] Health Maintenance Due Date Last Done Comments CT Colonography 1965 Colonoscopy 1965 Colorectal Cancer Screening 1965 FIT DNA 1965 FIT 1965 Sigmoidoscopy (10 year) with FIT yearly 1965 Sigmoidoscopy 1965 HIV screen 11/10/1983 Hepatitis C Screening 11/10/1983 Hepatitis B vaccine (0-59 yrs) (1) 1984 Tetanus/Diphtheria/Pertussis Vaccines (1 - Tdap) 11/09 HPV test 11/10/1995 PAP Smear 11/10/1995 Breast Cancer Share Decision Needed 2005 Breast Cancer screening 2005 Pneumoccocal Vaccine: 50+ (1 of 1 - PCV) 11/10/2015 Zoster vaccine (1 of 2) 11/10/2015 Advance Directive 2020 Covid-19 Vaccine (1 - season) 2024 Influenza (Flu) vaccine (1 o f 1 - Influenza standard series) 04/20/2024 Procedures Procedure Name Priority Date/Time Associated Diagnosis Comments SURGICAL PATHOLOGY SCAN 07/02/2024 12:00 AM EST FILM LIBRARY STORAGE ONLY CT CHEST Routine 06/11/2024 12:00 AM EDT from Last 3 Months Results * Scan Doc: Surgical Pathology (07/02/2024 12:00 AM EST) Narrative 07/02/2024 12:00 AM EST Ordered by an unspecified provider. Scanning Provider MEDIA MGR SCAN EXT O RDR/RSLT * Film Library- Storage Only CT Chest (06/11/2024 12:00 AM EDT) 07/19/2024 9:23 PM EST Narrative [facility] - 07/19/2024 9:23 PM EST This exam is auto-finalizing. It's purpose is for storage only. Lazaro Borjas MD [facility] [place]M LIBRARY ORD ERABLES [place], [place] from Last 3 Months Care Teams Mainframe Developer Relationship Specialty Start Date End Date Yasewicz, Rena C, PA [address] [place] [address] [place] [address] PCP - General Internal Medicine 08/11/24
--- OUTSIDE RECORDS SUMMARY | 2024-09-08 15:01 | XMS_ITS | Continuity of Care Document ---
Author Organization [facility] Address [address] [place] [address] Care Team Providers Care Food And Beverage Checker Name Role Phone Rena Flower Primary Care Physician Encounter [facility] Date(s): 02/22/23 - 02/22/23 [facility] [address] [place] [address] Discharge Disposition: Home Allergies, Adverse Reactions, Alerts [...] Daily, # 90 tab, 3 Refill(s), Pharmacy: [id number] Start Date: 02/12/23 Status: Ordered clotrimazole 1% [...] 0 Refill(s) Start Date: 02/03/22 Status: Ordered Montgomery-3 Fish Oil 1,000 mg =, Oral, BID, [...] Member Role: Primary Care Physician Address: Address: [facility] [address] [address]- [place]
--- OUTSIDE RECORDS SUMMARY | 2024-09-08 15:02 | XMS_ITS | Encounter Summary ---
Author Organization [facility] Address [address] [place] [address] Care Team Providers Care Sitecore Developer Name Role Phone Rena Flower Primary Care Provider + Reason for Visit * Reason Onset Date Comments Appointment Related 08/04/2024 Encounter Details Date Type Department Care Team (Late st Contact Info) Description 08/04/2024 Telephone [facility] OBGYN Services - [facility] [address], [place] [id number] Marianna Bansal MD [address] [facility], [address] [place] [address] Appointment Related Social History Tobacco Use Types Packs/Day Years Used Date Smoking Tobacco: Former Cigarettes 0.5 10 Smokeless Tobacco: Never Comments:Started and Stopped several times Alcohol Use Standard Drinks/Week Comments Yes 4 (1 standard drink = 0.6 oz pur e alcohol) [facility] Utilities Answer Date Recorded In the past 12 months has [employer] electric, gas, oil, or water [employer] threatened to shut off services in your home? No 07/03/2024 Hunger Vital Sign Answer Date Recorded Within the past 12 months, y ou worried that your food would run out before you got the money to buy more. Never true 07/03/20 24 Within the past 12 months, t he food you bought just didn't last and you didn't have money to get more. Never true 07/03/2024 [facility] - Inadequate Housing Answer Date Re corded What is your living situation today? [facility] place to live 07/03/[address] you li ve. Do you have problems with any of the following? None of the above 07/03/2024 [facility] - Transportation Answer Date Record ed In the past 12 months, has l ack of reliable transportation kept you from medical appointments, meetings, work or from getting things needed for daily living? No 07/03/2024 [facility] - Personal Safety Answer Date Recor ded How often does anyone, juani carroll family and friends, physically hurt you? Never 07/03/2024 How often does anyone, juani carroll family and friends, insult or talk down to you? Never 07/03/2024 How often does anyone, juani carroll family and friends, threaten you with harm? Never 07/03/2024 How often does anyone, juani carroll family and friends, scream or curse at you? Never 07/03/2024 Comments No Sex and Gender Information Value Date Recorded Sex Assigned at Female 07/02/2024 11:19 EST Legal Sex Female 18:15 EST Gender Identity Female 06/24/2024 17:31 EST Sexual Orientation Not on file documented as of this encounter Functional Status * Are you deaf or do you have serious difficulty hearing? Answer Date of Assessment Author No 07/03/2024 0:00 Anamaria De Santiago RN * Are you blind or do you have serious difficulty seeing, even when wearing glasses? Answer Date of Assessment Author No 07/03/2024 0:00 Anamaria De Santiago RN * Do you have serious difficulty walking or climbing stairs? (5 years old or older) Answer Date of Assessment Author No 07/03/2024 0:00 Anamaria De Santiago RN * Do you have difficulty dressing or bathing? (5 years old or older) Answer Date of Assessment Author No 07/03/2024 0:00 Anamaria De Santiago RN * Because of a physical, mental, or emotional condition, do you have difficulty doing errands alone such as visiting a doctor's office or shopping? (15 years old or older) Answer Date of Assessment Author No 07/03/2024 0:00 Anamaria De Santiago RN documented as of this encounter Mental Status * Because of a physical, mental, or emotional condition, do you have serious difficulty concentrating, remembering, or making decisions? (5 years old or older) Answer Entry Date Author No 07/03/2024 0:00 EST Anamaria Mejía RN documented in this encounter Miscellaneous Notes * Telephone Encounter - Tanya Torre - 08/04/2024 1050 EST Called patient to advise appt TOMORROW with Rolf to 0900; patient confirmed documented in this encounter Plan of Treatment Not on file documented as of this encounter Visit Diagnoses Not on filedocumented in this encounter Care Teams Sitecore Developer Relationship Specialty Start Date End Date Rena Flower PA [address] [place] [address] [place] [address] PCP - General Internal Medicine - Primary Care 06/24/24 documented as of this encounter
--- OUTSIDE RECORDS SUMMARY | 2024-09-08 15:02 | XMS_ITS | Encounter Summary ---
Author Organization [facility] Address [address] [place] [address] Care Team Providers Care Family Partner Name Role Phone Rena Flower Primary Care Provider + Reason for Referral * Consult (Routine/Next Available) - New Request Specialty Diagnoses / Procedures Referred By [facility] Referred To Contact Hematology and Oncology Diagnoses Endometrial cancer (HCC-CMS) Marianna Bansal MD [address] [place] [address] [address] [place] [address] Phone: tel: fax: Referral ID Status Reason Start Date Expiration Date Visits Requested Visits Authorized [id number] New Request Specialty Services Required 4 1 1 Question Answer Location [facility] Tumor Board Supervisor Silvering Department Working Stage pT2, (sn)pN0; FIGO stage IIC Additional Providers No Clinical Question? No Radiology Review No Need to Review Pathology Review Review Recent Pathology Please indicate which slides are to be reviewed and add the pathology question discuss CARIS report/[id number] Trial Options No Date to be Presented 08/07/24 Reason for Visit * Reason Onset Date Comments Tumor Board 07/30/2024 Encounter Details Date Type Department Care Team (Late st Contact Info) Description 07/30/2024 Orders Only [facility] Cancer [facility] Hematology & Oncology - [address] [id number] Blanka Bhagat, IFTIKHAR Endometrial cancer (HCC-CMS) (Primary Dx) Social History Tobacco Use Types Packs/Day Years Used Date Smoking Tobacco: Former Cigarettes 0.5 10 Smokeless Tobacco: Never Comments:Started and Stopped several times Alcohol Use Standard Drinks/Week Comments Yes 4 (1 standard drink = 0.6 oz pur e alcohol) [facility] Utilities Answer Date Recorded In the [...] money to get more. Never true 07/03/2024 [facility] - Inadequate Housing Answer Date Re corded What is your living situation today? I have a [facility] place to live 07/03/[address] you li ve. Do you have problems with any of the following? None of the above 07/03/2024 [facility] - Transportation Answer Date Record ed In the past 12 months, has l ack of reliable transportation kept you from medical appointments, meetings, work or from getting things needed for daily living? No 07/03/2024 [facility] - Personal Safety Answer Date Recor [...] Date of Assessment Author No 07/03/2024 0:00 EST Anamaria Mejía , IFTIKHAR * Are you blind or do you [...] Answer Entry Date Author No 07/03/2024 0:00 Anamaria De Santiago RN documented in this encounter Progress Notes * Blanka Bhagat RN - 07/30/2024 1345 EST This patient has been referred to be discuss at the Gynecology Oncology Tumor Board. Additional documentation will be done to summarize discussion. Referring provider: Dr. Bansal Date requested: 07/30/24 For discussion of Caris results For review of Caris result only IFTIKHAR Moscosorevival clerk Oncology Nurse Navigator documented in this encounter Plan of Treatment Scheduled Referrals Name Type Priority Associated Diagnoses Orde r Schedule AMB CONSULT/FOLLOW UP TUMOR BOARD Outpatient Referral Routine Endometrial cancer (HCC-CMS) Ordered: 07/30/2024 documented as of this encounter Visit Diagnoses Diagnosis Endometrial cancer (HCC-CMS)- Primary Malignant neoplasm of corpus uteri, except isthmus documented in this encounter Care Teams Family Partner Relationship Specialty Start Date End Date Rena Flower PA [address] [place] [address] [place] [address] PCP - General Internal Medicine - Primary Care 06/24/24 documented as of this encounter
--- OUTSIDE RECORDS SUMMARY | 2024-09-08 15:02 | XMS_ITS | Encounter Summary ---
Author Organization [facility] Address [address] [place] [address] Care Team Providers Care Manager Pet Name Role Phone Rena Flower Primary Care Provider + Reason for Visit * Reason Onset Date Comments Coordination Of Care 09/04/2024 Encounter Details Date Type Department Care Team (Late st Contact Info) Description 09/04/2024 Telephone [facility] OBGYN Services - [facility] [address] [place] [address] Asiya Coombs, RN [address] [place] [address] Coordination Of Care Social History Tobacco Use Types Packs/Day Years Used Date Smoking Tobacco: Former Cigarettes 0.5 10 Smokeless Tobacco: Never Comments:Started and Stopped several times Alcohol Use Standard Drinks/Week Comments Yes 4 (1 standard drink = 0.6 oz pur e alcohol) [facility] Utilities Answer Date Recorded In the past 12 months has [employer] electric, gas, oil, or water company threatened [...] living situation today? I have a [facility] place to live 07/03/2024 Think about the [...] Entry Date Author No 07/03/2024 0:00 EST Mejía, Anamaria , RN documented in this encounter Miscellaneous Notes * Telephone Encounter - Nguyen Paredes - 09/04/2024 1547 EST TC from [facility] Rad [facility], returning previous call with appt info. Pt is scheduled to meet with Dr. Mohini Smith on 09/08/2024 @ 11:00am. * Telephone Encounter - Asiya Coombs RN - 09/04/2024 1023 EST Call to [facility] to confirm if radiation is scheduled at this time Pt's radiation treatments are not currently scheduled. The MD that pt was initially assigned to is leaving the practice, so scheduling is working on scheduling an appt with the new MD (Dr. Smith). Will follow up in a week to confirm if appt was scheduled documented in this encounter Plan of Treatment Not on file documented as of this encounter Visit Diagnoses Not on filedocumented in this encounter Care Teams Manager Pet Relationship Specialty Start Date End Date Rena Flower PA [address] [place] [address] [place] [address] PCP - General Internal Medicine - Primary Care 06/24/24 documented as of this encounter
--- OUTSIDE RECORDS SUMMARY | 2024-09-08 15:02 | XMS_ITS | Encounter Summary ---
Author Organization [facility] Address [address] [place] [address] Care Team Providers Care Casing Crew Name Role Phone Rena Flower Primary Care Provider + Reason for Visit * Reason Onset Date Comments Medication Reaction 07/08/2024 Post-op Problem 07/08/2024 Encounter Details Date Type Department Care Team (Late st Contact Info) Description 07/08/2024 Telephone [facility] OBGYN Services - [facility] [address] [place], [place] [id number] Marianna Bansal MD 111 [facility], [address] [place] [address] Medication Reaction; Post-op Problem Social History Tobacco Use Types Packs/Day Years Used Date Smoking Tobacco: Former Cigarettes 0.5 10 Smokeless Tobacco: Never Comments:Started and Stopped several times Alcohol Use Standard Drinks/Week Comments Yes 4 (1 standard drink = 0.6 oz pur e alcohol) [facility] Utilities Answer Date Recorded In the past 12 months has [employer] electric, gas, oil, or water company threatened [...] money to get more. Never true 07/03/2024 [facility] - Inadequate Housing Answer Date Re corded What is your living situation today? I have a [facility] place to live 07/03/[address] you li ve. Do you have problems with any of the following? None of the above 07/03/2024 [facility] - Transportation Answer Date Record ed In the past 12 months, has l ack of reliable transportation kept you from medical appointments, meetings, work or from getting things needed for daily living? No 07/03/2024 [facility] - Personal Safety Answer Date Recor ded [...] encounter Miscellaneous Notes * Telephone Encounter - Janina Chavez RN - 07/08/2024 1028 EST Spoke to patient who has bruising on bilateral lateral flank areas. Pt denies pain, bleeding from incisional, Lovenox injection sites or and other areas. Denies dizziness or lightheaded. Pt does not know how long the bruising has been present. Pt had LTH with node dissection on Jul 02. Pt sent a picture in my chart today. James ABDUL reviewed photo and recommend monitoring. Continue Lovenox today and discontue after today. Call if bruising increase in size or S/S of anemia. Pt has a f/u appt Jul 15. * Telephone Encounter - Nguyen Paredes - 07/08/2024 0911 EST Are you calling for gynecological, obstetric, or reproductive care? Oncology Have you been seen here before? Yes If yes, who do you see? Dr. Bansal Reason for Call as described by patient: Bruising on her left side, has been using Lovenox. Bruising has now started on her right side. The packaging on Lovenox encouraged her to reach out to MD if she had unusual bruising. Onset, duration, location? Her partner noticed it yesterday 3 inches long, 3 inches wide, with smaller bruises surrounding If having pain, is it getting better, worse or the same? Denies pain What is the best phone number for us to reach you back at? [phone] Does this number have a voicemail, is it ok to leave a detailed message? Yes, then message on TeraFirrmaadolfo Paredes 07/08/2024 9:11 documented in this encounter Plan of Treatment Not on file documented as of this encounter Visit Diagnoses Not on filedocumented in this encounter Care Teams Casing Crew Relationship Specialty Start Date End Date Rena Flower PA [address] [place] [address] [place] [phone] PCP - General Internal Medicine - Primary Care 06/24/24 documented as of this encounter
--- OUTSIDE RECORDS SUMMARY | 2024-09-08 15:02 | XMS_ITS | Encounter Summary ---
Author Organization [facility] Address [address] [place] [address] Care Team Providers Care Corporate Strategy Analyst Name Role Phone Rena Flower Primary Care Provider + Reason for Referral * Radiology Services (Routine/Next Available) - Receiving Office to Obtain Authorization Specialty Diagnoses / Procedures Referred By Contac t Referred To Contact Diagnoses Endometrial cancer ([facility]) Procedures TUMOR BOARD RADIOLOGY CONSULT A/C TECHNICIAN TUMOR BOARD RADIOLOGY CONSULT NON BREAST Marianna Bansal MD [address] [place] [address] Phone: tel: fax: Referral ID Status Reason Start Date Expiration Date Visits Requested Visits Authorized [id number] Receiving Office to Obtain Authorization 4 1 1 * Radiology Services (Routine/Next Available) - Receiving Office to Obtain Authorization Specialty Diagnoses / Procedures Referred By Contac t Referred To Contact Diagnoses Endometrial cancer ([facility]) Procedures TUMOR BOARD RADIOLOGY CONSULT A/C TECHNICIAN TUMOR BOARD RADIOLOGY CONSULT NON BREAST Marianna Bansal MD [address] [address] Phone: tel: fax: Referral ID Status Reason Start Date Expiration Date Visits Requested Visits Authorized [id number] Receiving Office to Obtain Authorization 4 1 1 * Consult (Routine/Next Available) - New Request Specialty Diagnoses / Procedures Referred By Everett mendiola Referred To Contact Hematology and Oncology Diagnoses Endometrial cancer ([facility]) Marianna Bansal MD [address] [place] [address], [facility], [address] [place] [address] Phone: tel: fax: Referral ID Status Reason Start Date Expiration Date Visits Requested Visits Authorized [id number] New Request Specialty Services Required 4 1 1 Question Answer Location [facility] Tumor Board Fitness Sales Associate Working Stage pT2, (sn)pN0; FIGO stage IIC Additional Providers No Clinical Question? No Radiology Review Review Recent Radiology Question to be answered: Discuss dz extent/staging for tx plan Place appropriate Radiology Tumor Board Order below (up to 8 for Breast and up to 4 for all others) Acknowledge Pathology Review Review Recent Pathology Please indicate which slides are to be reviewed and add the pathology question [id number] Trial Options No Date to be Presented 07/24/24 Reason for Visit * Reason Onset Date Comments Coordination Of Care 07/09/2024 Encounter Details Date Type Department Care Team (Late st Contact Info) Description 07/09/2024 Orders Only [facility] Cancer Center Hematology & Oncology - [address] [address] lBanka Bhagat, RN Endometrial cancer ([facility]) (Primary Dx) Social History Tobacco Use Types Packs/Day Years Used Date Smoking Tobacco: Former Cigarettes 0.5 10 Smokeless Tobacco: Never Comments:Started and Stopped several times Alcohol Use Standard Drinks/Week Comments Yes 4 (1 standard drink = 0.6 oz pur e alcohol) [facility] Utilities Answer Date Recorded In the past 12 months has e electric, gas, oil, or water company threatened to shut off services in your home? No 07/03/2024 Hunger Vital Sign Answer Date Recorded Within the past 12 months, y ou worried that your food would run out before you got the money to buy more. Never true 11/14/20 24 Within the past 12 months, t he food you bought just didn't last and you didn't have money to get more. Never true 07/03/2024 [facility] - Inadequate Housing Answer Date Re corded What is your living situation today? I have a [facility] place to live 07/03/[address] you li ve. Do you have problems with any of the following? None of the above 07/03/2024 [facility] - Transportation Answer Date Record ed In the past 12 months, has l ack of reliable transportation kept you from medical appointments, meetings, work or from getting things needed for daily living? No 07/03/2024 [facility] - Personal Safety Answer Date Recor ded [...] Author No 07/03/2024 0:00 Anamaria De Santiago , IFTIKHAR * Because of a physical, mental, or emotional condition, do you have difficulty doing errands alone such as visiting a doctor's office or shopping? (15 years old or older) Answer Date of Assessment Author No 07/03/2024 0:00 EST Anamaria Mejía RN documented as of this encounter Mental Status * Because of a physical, mental, or emotional condition, do you have serious difficulty concentrating, remembering, or making decisions? (5 years old or older) Answer Entry Date Author No 07/03/2024 0:00 EST Anamaria Mejía RN documented in this encounter Progress Notes * Blanka Bhagat RN - 07/09/2024 1225 EST This patient has been referred to be discuss at the Gynecology Oncology Tumor Board. Additional documentation will be done to summarize discussion. Referring provider: Dr. Bansal Date requested: 07/09/24 For discussion of treatment recommendations For review of imaging and pathology IFTIKHAR Moscosofarmworker general Oncology Nurse Navigator documented in this encounter Plan of Treatment Scheduled Referrals Name Type Priority Associated Diagnoses Orde r Schedule AMB CONSULT/FOLLOW UP TUMOR BOARD Outpatient Referral Routine Endometrial cancer ([facility]) Ordered: 07/09/2024 documented as of this encounter Results * TUMOR BOARD RADIOLOGY CONSULT A/C TECHNICIAN (07/15/2024 6:45 EST) Anatomical Region Laterality Modality Other 08/19/2024 13:1 1 EST Narrative 08/19/2024 13:11 EST TUMOR BOARD IMAGING REVIEW Tumor board: Gynecology oncology Date of tumor board: 07/24/2024 Indication: Endometrial cancer. ?? Imaging studies reviewed: CT of the chest with contrast from [facility] 06/11/2024 Comments: A focused interpretation for the purpose of tumor board/MDC discussion was performed for the imaging exams listed above. [id number] Resulting Agency Comment [id number] Procedure Note Jimenez Perez MD - 08/19/2024 TUMOR BOARD IMAGING REVIEW Tumor board: Gynecology oncology Date of tumor board: 07/24/2024 Indication: Endometrial cancer. Imaging studies reviewed: CT of the chest with contrast from [facility] 06/11/2024 Comments: A focused interpretation for the purpose of tumor board/MDC discussion wasperformed for the imaging exams listed above. [id number] Marianna Bansal MD [facility] CT ORDERABLES Final Result * TUMOR BOARD RADIOLOGY CONSULT A/C TECHNICIAN (07/15/2024 6:41 EST) Anatomical Region Laterality Modality Other 08/19/2024 13:1 1 EST Narrative 08/19/2024 13:11 EST TUMOR BOARD IMAGING REVIEW Tumor board: Gynecology oncology Date of tumor board: 07/24/2024 Indication: Endometrial cancer. ?? Imaging studies reviewed: CT abdomen/pelvis with contrast from [facility] 05/29/2024 Comments: A focused interpretation for the purpose of tumor board/MDC discussion was performed for the imaging exams listed above. [id number] Resulting Agency Comment [id number] Procedure Note Jimenez Perez MD - 08/19/2024 TUMOR BOARD IMAGING REVIEW Tumor board: Gynecology oncology Date of tumor board: 07/24/2024 Indication: Endometrial cancer. Imaging studies reviewed: CT abdomen/pelvis with contrast from [facility] 05/29/2024 Comments: A focused interpretation for the purpose of tumor board/MDC discussion wasperformed for the imaging exams listed above. [id number] Marianna Bansal MD [facility] CT ORDERABLES Final Result documented in this encounter Visit Diagnoses Diagnosis Endometrial cancer (HCC-CMS)- Primary Malignant neoplasm of corpus uteri, except isthmus documented in this encounter Care Teams Corporate Strategy Analyst Relationship Specialty Start Date End Date eRna Flower PA [address] [place] [address] [place] [address] PCP - General Internal Medicine - Primary Care 06/24/24 documented as of this encounter
--- OUTSIDE RECORDS SUMMARY | 2024-09-08 15:02 | XMS_ITS | Encounter Summary ---
Author Organization [facility] Address [address] [place] [address] Care Team Providers Care Bingo Checker Name Role Phone Rena Flower Primary Care Provider + Reason for Visit * Reason Onset Date Comments Coordination Of Care 08/11/2024 Encounter Details Date Type Department Care Team (Late st Contact Info) Description 08/11/2024 Telephone [facility] OBGYN Services - [facility] [address] [place] [address] Asiya Coombs, RN [address] [place] [address] Coordination Of Care Social History Tobacco Use Types Packs/Day Years Used Date Smoking Tobacco: Former Cigarettes 0.5 10 Smokeless Tobacco: Never Comments:Started and Stopped several times Alcohol Use Standard Drinks/Week Comments Yes 4 (1 standard drink = 0.6 oz pur e alcohol) [facility] Utilities Answer Date Recorded In the past 12 months has [employer], gas, oil, or water company threatened [...] money to get more. Never true 07/03/2024 [facility] - Inadequate Housing Answer Date Re corded What is your living situation today? I have a [place] place to live 07/03/[address] you li ve. Do you have problems with any of the following? None of the above 07/03/2024 [facility] - Transportation Answer Date Record ed In the past 12 months, has l ack of reliable transportation kept you from medical appointments, meetings, work or from getting things needed for daily living? No 07/03/2024 [facility] - Personal Safety Answer Date Recor [...] De Santiago RN documented in this encounter Miscellaneous Notes * Telephone Encounter - Asiya Coombs, RN - 08/11/2024 1054 EST Call to [facility] to f/u on referral Per staff, all we have is a name, birthday and MRN number. I am not sure if someone is already working on this or not. [employer] refaxed facesheet, referral, pathology and office notes to [phone] Addendum 08/14/24- Another call to [facility] to verify they received referral. Pt is scheduled for [facility] in [place] on 09/01/24 documented in this encounter Plan of Treatment Not on file documented as of this encounter Visit Diagnoses Not on filedocumented in this encounter Care Teams Bingo Checker Relationship Specialty Start Date End Date Rena Flower PA [address] [place] [address] [place] [id number] PCP - General Internal Medicine - Primary Care 06/24/24 documented as of this encounter
--- OUTSIDE RECORDS SUMMARY | 2024-09-08 15:02 | XMS_ITS | Referral Summary ---
Author Organization [facility] Address [address] [place] [address] Care Team Providers Care Business Process Coordinator Name Role Phone Rena Flower Primary Care Provider + Encounters Date Type Department Care Team Description 09/05/2024 Telephone [facility] OBGYN Services [address] [phone] Asiya Coombs, RN Billing Question 09/04/2024 [facility] OBGYN Services [address] [phone] Asiya Coombs, IFTIKHAR Coordination Of Care 08/19/2024 [facility] OBGYN Services [address] [phone] Marianna Bansal MD Disability Paperwork 08/15/2024 [facility] OBGYN Services [address] [phone] Marianna Bansal MD Advice Only 08/14/2024 Telephone [facility] Hematology & Oncology - [address] [phone] Bobbi Weaver MSW Social Work (Outreach call to pt/) 08/11/2024 [facility] OBGYN Services [address] [phone] Asiya Coombs, RN Coordination Of Care 08/07/2024 8:15 EST Tumor Board [facility] Hematology & Oncology [address] [address] Endometrial cancer (HCC-CMS) (Primary Dx) 08/05/2024 Orders Only [facility] OBGYN Services [address] [address] Marianna Bansal MD Endometrial cancer (HCC-CMS) 08/05/2024 9:00 EST Office Visit [facility] OBGYN Services [address] [address] Marianna Bansal MD Endometrial cancer (HCC-CMS) (Primary Dx) 08/04/2024 Telephone [facility] OBGYN [address] [address] Marianna Bansal MD Appointment Related 07/30/2024 Orders Only [facility] Hematology & Oncology [address] [address] Blanka Bhagat, IFTIKHAR Endometrial cancer (HCC-CMS) (Primary Dx) 07/28/2024 Telephone [facility] OBGYN [address] [address] Marianna Bansal MD Appointment Related 07/24/2024 7:30 EST Tumor Board [facility] Hematology & Oncology [address] [address] Endometrial cancer (HCC-CMS) (Primary Dx) 07/23/2024 9:00 EST Telemedicine [facility] Radiation Oncology - [address] [address] Morales Pollard MD Cancer of endometrium (HCC-CMS) (Primary Dx) 07/15/2024 6:39 EST - 07/15/2024 23:59 EST Hospital Encounter [facility] Radiology - [address] [address] Endometrial cancer (HCC-CMS); Malignant neoplasm of endometrium (HCC-CMS) Discharge Disposition: Home or Self Care 07/15/2024 10:45 EST Post-op Visit [facility] OBGYN Services [address] [address] Marianna Bansal MD Endometrial cancer ([facility]) (Primary Dx) 07/14/2024 Documentation Visit [facility] OBGYN Services [address] [phone] Asiya Coombs, IFTIKHAR 07/09/2024 Orders Only [facility] Hematology & Oncology - [address] [address] Blanka Bhagat, IFTIKHAR Endometrial cancer ([facility]) (Primary Dx) 07/08/2024 Telephone [facility] OBGYN Services [address] [address] Marianna Bansal MD Medication Reaction; Post-op Problem 07/04/2024 Telephone [facility] OBGYN Services [address] [address] Asiya Coombs, IFTIKHAR Post-OP Follow Up 07/03/2024 Documentation Visit [facility] OBGYN [address] [phone] Asiya Coombs RN 07/02/2024 11:23 EST - 07/03/2024 13:45 EST Hospital Encounter [facility] Neurosurgery Unit [address] [place] [address] Marianna Bansal MD Discharge Disposition: Home or Self Care 07/02/2024 13:45 EST - 07/02/2024 17:30 EST Surgery [facility] OR [address] [place], [place] [address] Marianna Bansal MD Robotic assisted total laparoscopic hysterectomy, bilateral salpingo-oophorecto my [[id number] (CPT??)] 07/02/2024 15:16 EST Anesthesia Event [facility] OR [address] [place] [address] Jett Heller MD 07/01/2024 Telephone [facility] OBGYN Services - [facility] [address], [place] [phone] Marianna Bansal MD Confirmation 06/25/2024 9:50 EST - 06/25/2024 10:09 EST Hospital Encounter [facility] Pre-Surgical Testing [address], [place] [address] Discharge Disposition: Home or Self Care 06/13/2024 Telephone [facility] OBGYN Services - [facility] [address], [place] [phone] Marianna Bansal MD Appointment Related; Other (Image Push) 06/11/2024 - 06/11/2024 23:59 EDT Hospital Encounter [facility] Secondary Reads [place] Discharge Disposition: Home or Self Care from Last 3 Months Allergies No known active allergies Medications citalopram (CELEXA) 20 mg tablet Take 0.5 Tablets by mouth daily. Active magnesium oxide (MAG-OX) 400 mg (241.3 mg magnesium) tablet Take 1 Tablet by mouth daily. Active omega 8-bwi-gtn-fish oil 350 mg-235 mg- 90 mg-597 mg capsule,delayed release(DR/EC) Take by mouth. Active VITAMIN B COMPLEX-100 ORAL Take 1 Tablet by mouth daily. Active cholecalciferol , Vitamin D3, 25 mcg (1,000 unit) tablet Take 1 Tablet by mouth daily. Active acetaminophen (TYLENOL) 500 mg tablet Take 2 Tablets by mouth every 8 hours as needed for Pain. 4 Active docusate sodium (COLACE) 100 mg capsule Take 1 Capsule by mouth 2 times daily as needed for Constipation. 60 Capsule 4 Active ibuprofen (MOTRIN) 800 mg tablet Take 1 Tablet by mouth every 8 hours as needed for Pain. Active oxyCODONE (ROXICODONE) 5 mg immediate release tablet Take 1 Tablet by mouth every 4 hours as needed for Pain. Daily Max: 30 mg 5 Tablet 4 Active Additional Information Patient not taking.Reported on 08/05/2024 Active Problems Problem Noted Date Diagnosed Date Endometrial cancer (HCC-[facility]) 05/27/2024 Cancer Staging:Pathologic:Stage II(pT2, pN0, cM0) - Signed by Morales Pollard MD on 07/23/2024 Immunizations Name Administration Dates Next Due Influenza Vaccine Trivalent (IIV3) Split Virus (AFLURIA) PF 0.5 mL IM (36 mos+) 07/03/2024 Social History Tobacco Use Types Packs/Day Years Used Date Smoking Tobacco: Former Cigarettes 0.5 10 Smokeless Tobacco: Never Tobacco Cessation:Counseling Given: Not Answered Comments:Started and Stopped several times Alcohol Use Standard Drinks/Week Comments Yes 4 (1 standard drink = 0.6 oz pur e alcohol) [facility] Utilities Answer Date Recorded In the [...] money to get more. Never true 07/03/2024 [facility] - Inadequate Housing Answer Date Re corded What is your living situation today? I have a [facility] place to live 07/03/[address] you li ve. Do you have problems with any of the following? None of the above 07/03/2024 [facility] - Transportation Answer Date Record ed In the past 12 months, has l ack of reliable transportation kept you from medical appointments, meetings, work or from getting things needed for daily living? No 07/03/2024 [facility] - Personal Safety Answer Date Recor [...] 17:31 EST Sexual Orientation Not on file Last Filed Vital Signs Vital Sign Reading Time Taken Comments Blood Pressure 126/80 08/05/2024 0849 EST Pulse - - Temperature 36.8 ??C (98.2 ??F) 07/03/2024 1200 EST Respiratory Rate 16 07/03/2024 1200 EST Oxygen Saturation 97% 07/03/2024 1200 EST Inhaled Oxygen Concentration - - Weight 70.3 kg (155 lb) 08/05/2024 0849 EST Height 157.5 cm (5' 2) 07/02/2024 1209 EST Body Mass Index 28.35 07/02/2024 1209 EST Functional Status * Are you deaf or [...] No 07/03/2024 0:00 Anamaria De Santiago RN Mental Status * Because of a physical, mental, or emotional condition, do you have serious difficulty concentrating, remembering, or making decisions? (5 years old or older) Answer Entry Date Author No 07/03/2024 0:00 Anamaria De Santiago RN Plan of Treatment Not on file Procedures Procedure Name Priority Date/Time Associated Diagnosis Comments MISCELLANEOUS TEST, NON DUTTON Routine 08/05/2024 15:15 EST Endometrial cancer (HCC-CMS) TUMOR BOARD RADIOLOGY CONSULT HAND IRONER Routine 07/15/2024 6:45 EST Endometrial cancer (HCC-CMS) CT SUBSPECIALTY RADIOLOGY CONSULT CHEST Routine 07/15/2024 6:43 EST Endometrial cancer (HCC-CMS) Malignant neoplasm of endometrium (HCC-CMS) TUMOR BOARD RADIOLOGY CONSULT HAND IRONER Routine 07/15/2024 6:41 EST Endometrial cancer (HCC-CMS) CT SUBSPECIALTY RADIOLOGY CONSULT BODY Routine 07/15/2024 6:39 EST Endometrial cancer (HCC-CMS) Malignant neoplasm of endometrium (HCC-CMS) COMPLETE BLOOD COUNT Routine 07/03/2024 6:56 EST SCREENING GLUCOSE Routine 07/02/2024 20: 32 EST NON HAND IRONER/FNA CYTOLOGY Routine 07/02/2024 16:29 EST SURGICAL PATHOLOGY Routine 07/02/2024 16 :29 EST ANESTHESIA INTUBATION Routine 07/02/2024 15:31 EST CYSTOSCOPY, RIGID 07/02/2024 15: 06 EST Endometrial cancer (HCC-CMS) LYMPHADENECTOMY, PELVIS, ROBOT-ASSISTED, WITH BIOPSY 07/02/2024 15:06 EST Endometrial cancer (HCC-CMS) ROBOTIC-ASSISTED INTRAOPERATIVE MAPPING SENTINEL LYMPH NODES INCLUDING INJECTION 07/02/2024 15:06 EST Endometrial cancer (HCC-CMS) HYSTERECTOMY, ROBOT-ASSISTED, WITH SALPINGO-OOPHORECTOMY IF INDICATED, FOR UTERUS LESS THAN 250 GRAMS 07/02/2024 15:06 EST Endometrial cancer (HCC-CMS) TYPE AND SCREEN Routine 07/02/2024 12:33 EST COMPLETE BLOOD COUNT Routine 07/02/2024 12:33 EST from Last 3 Months Results * MISCELLANEOUS TEST, NON DUTTON (08/05/2024 15:15 EST) Test Name [facility] 08/27/2024 15:28 EST [facility] Blood VENOUS BLOOD / Unknown Venipuncture / Unknown 08/05/2024 15:15 EST 08/05/2024 15:15 EST Narrative [facility] - 08/27/2024 15:28 EST See scanned/supplementary report. us Marianna Bansal MD CHEMISTRY & BLOOD GAS O RDERABLES Final Result [facility] [address] [place], [place] [id number] * TUMOR BOARD RADIOLOGY CONSULT HAND IRONER (07/15/2024 6:45 EST) Anatomical Region Laterality Modality Other 08/19/2024 13:1 1 EST Narrative 08/19/2024 13:11 EST TUMOR BOARD IMAGING REVIEW Tumor board: Gynecology oncology Date of tumor board: 07/24/2024 Indication: Endometrial cancer. ?? Imaging studies reviewed: CT of the chest with contrast from [facility] 06/11/2024 Comments: A focused interpretation for the purpose of tumor board/MDC discussion was performed for the imaging exams listed above. [id number] Resulting Agency Comment [id number] Procedure Note Jimenez Perez MD - 08/19/2024 TUMOR BOARD IMAGING REVIEW Tumor board: Gynecology oncology Date of tumor board: 07/24/2024 Indication: Endometrial cancer. Imaging studies reviewed: CT of the chest with contrast from [facility] 06/11/2024 Comments: A focused interpretation for the purpose of tumor board/MDC discussion wasperformed for the imaging exams listed above. [id number] us Marianna Bansal MD IMG CT ORDERABLES Final Result * CT SUBSPECIALTY RADIOLOGY CONSULT CHEST (07/15/2024 6:43 EST) Anatomical Region Laterality Modality Computed Tomogra phy 07/15/2024 10:3 2 EST Impressions 07/15/2024 10:32 EST No specific finding of metastasis, noting very small indeterminate solid pulmonary nodule measuring up to 2 mm which are unlikely to represent metastatic disease. Attention on follow-up is advised. RECOMMENDATIONS: Follow-up chest CT in 6 months or per clinical protocol. [id number] Narrative 07/15/2024 10:32 EST 07/15/2024 6:43 AM Clinical History/Comments: TUMOR BOARD REVIEW. Endometrial cancer. Technique: CT of the chest was performed at an outside institution on June 11, 2024. ??IV contrast material was administered. Exam description: ??Chest CT with contrast Comparison: CT abdomen and pelvis June 29, 2024 Findings: Lower neck: No abnormalities. Mediastinum and brenda (non-vascular): No enlarged mediastinal or hilar lymph nodes. ??The esophagus appears normal. Cardiovascular: There is atherosclerosis of the aorta and its branches. Lungs and airways: The airways are clear. There is a very small solid pulmonary nodule measuring up to 2 mm. Atelectasis is noted in the medial aspect of the right middle lobe and lingula. No consolidation. Pleura: No pleural effusion. Upper abdomen (limited to upper abdomen, not optimized for abdominal imaging): No abnormalities. Chest wall soft tissues: No abnormalities in the chest wall soft tissues. Bones: No significant abnormalities in the bones. ?? Resulting Agency Comment [id number] Procedure Note Win Tatum MD - 07/15/2024 07/15/2024 6:43 AM Clinical History/Comments: TUMOR BOARD REVIEW. Endometrial cancer. Technique: CT of the chest was performed at an outside institution on May. IV contrast material was administered. Exam description: Chest CT with contrast Comparison: CT abdomen and pelvis June 29, 2024 Findings: Lower neck: No abnormalities. Mediastinum and brenda (non-vascular): No enlarged mediastinal or hilarlymph nodes. The esophagus appears normal. Cardiovascular: There is atherosclerosis of the aorta and its branches. Lungs and airways: The airways are clear. There is a very small solidpulmonary nodule measuring up to 2 mm. Atelectasis is noted in the medialaspect of the right middle lobe and lingula. No consolidation. Pleura: No pleural effusion. Upper abdomen (limited to upper abdomen, not optimized for abdominalimaging): No abnormalities. Chest wall soft tissues: No abnormalities in the chest wall softtissues. Bones: No significant abnormalities in the bones. IMPRESSION No specific finding of metastasis, noting very small indeterminate solidpulmonary nodule measuring up to 2 mm which are unlikely to representmetastatic disease. Attention on follow-up is advised. RECOMMENDATIONS: Follow-up chest CT in 6 months or per clinical protocol. [id number] Marianna Bansal MD [facility] CT ORDERABLES Final Result * TUMOR BOARD RADIOLOGY CONSULT HAND IRONER (07/15/2024 6:41 EST) Anatomical Region Laterality Modality Other 08/19/2024 13:1 1 EST Narrative 08/19/2024 13:11 EST TUMOR BOARD IMAGING REVIEW Tumor board: Gynecology oncology Date of tumor board: 07/24/2024 Indication: Endometrial cancer. ?? Imaging studies reviewed: CT abdomen/pelvis with contrast from [facility] 05/29/2024 Comments: A focused interpretation for the purpose of tumor board/MDC discussion was performed for the imaging exams listed above. [id number] Resulting Agency Comment [id number] Procedure Note Jimenez Perez MD - 08/19/2024 TUMOR BOARD IMAGING REVIEW Tumor board: Gynecology oncology Date of tumor board: 07/24/2024 Indication: Endometrial cancer. Imaging studies reviewed: CT abdomen/pelvis with contrast from [facility] 05/29/2024 Comments: A focused interpretation for the purpose of tumor board/MDC discussion wasperformed for the imaging exams listed above. [id number] Marianna Bansal MD [facility] CT ORDERABLES Final Result * CT SUBSPECIALTY RADIOLOGY CONSULT BODY (07/15/2024 6:39 EST) Anatomical Region Laterality Modality Body Computed Tomogra phy 07/15/2024 17:3 1 EST Impressions 07/15/2024 17:31 EST 1. ??Heterogeneously hypoenhancing mass centered within the uterus consistent with pathology proven endometrial cancer. 2. ??Borderline enlarged left external iliac lymph nodes measure up to 0.9 cm short axis. These may be reactive or could represent hilton spread of malignancy. 3. ??Atherosclerosis. [id number] Narrative 07/15/2024 17:[address] SUBSPECIALTY RADIOLOGY CONSULT BODY ??07/15/2024 6:39 AM Signs and Symptoms/Comments: TUMOR BOARD REVIEW Technique: This is a secondary interpretation of CT abdomen and pelvis with IV contrast images obtained at [facility] on 05/29/2024, performed at the request of the ordering provider, MARIANNA BANSAL MD. Comparison: Pelvic ultrasound from an outside institution from 05/09/2024 Findings: Lower chest: CT chest is reported separately. Liver: No focal hepatic lesion identified. Hypodensity along the falciform ligament is consistent with focal fatty infiltration. Gallbladder: Gallbladder is normal. Bile ducts: There is no biliary ductal dilatation. Spleen: Spleen is normal. Pancreas: Pancreas is normal with no focal pancreatic lesion identified. No peripancreatic fluid or fat stranding. Adrenal glands: Adrenal glands are normal. Kidneys, ureters, bladder: No hydronephrosis or perinephric fat stranding bilaterally. Subcentimeter hypodensities in the midportion and lower pole of the left kidney are most likely benign cyst. Urinary bladder is partially distended. Reproductive organs: There is a heterogeneously hypoenhancing mass centered in the endometrium which measures roughly 7.6 x 3.1 x 4.1 cm (sagittal image 75, axial image 515). The mass extends from the level of the uterine fundus to the cervix. Mass does not appear to extend beyond the parametrium, however this is suboptimally assessed on CT. There is no adnexal mass bilaterally. Bowel: No bowel dilatation or bowel wall thickening. Peritoneal cavity: No free air or free fluid is present in the abdomen/pelvis. No peritoneal, mesenteric, or omental thickening or nodularity. Lymph nodes: Borderline enlarged left external iliac lymph nodes measure 0.9 cm (axial image 538) and 0.7 cm (axial image 524) in short axis. Retroperitoneal lymph nodes are not enlarged measuring up to 0.5 cm in short axis (axial image 318). Vascular: There is mild calcific atherosclerosis of the abdominal aorta and its major branches without evidence of aneurysm. Major abdominal and pelvic vasculature appears patent. Abdominal wall: Fat is present along the umbilicus. Abdominal wall is otherwise intact. Musculoskeletal: No concerning focal osseous lesion is identified. Mild multilevel degenerative changes are present in the lower thoracic and lumbar spine. Seismic Survey Assistant: No additional findings. Resulting Agency Comment [id number] Procedure Note Janice Moreno MD - 07/15/2024 CT SUBSPECIALTY RADIOLOGY CONSULT BODY 07/15/2024 6:39 AM Signs and Symptoms/Comments: TUMOR BOARD REVIEW Technique: This is a secondary interpretation of CT abdomen and pelviswith IV contrast images obtained at [facility] on 05/29/2024,performed at the request of the ordering provider, MARIANNA BANSAL MD. Comparison: Pelvic ultrasound from an outside institution from 05/09/2024 Findings: Lower chest: CT chest is reported separately. Liver: No focal hepatic lesion identified. Hypodensity along the falciformligament is consistent with focal fatty infiltration. Gallbladder: Gallbladder is normal. Bile ducts: There is no biliary ductal dilatation. Spleen: Spleen is normal. Pancreas: Pancreas is normal with no focal pancreatic lesion identified.No peripancreatic fluid or fat stranding. Adrenal glands: Adrenal glands are normal. Kidneys, ureters, bladder: No hydronephrosis or perinephric fat strandingbilaterally. Subcentimeter hypodensities in the midportion and lower poleof the left kidney are most likely benign cyst. Urinary bladder ispartially distended. Reproductive organs: There is a heterogeneously hypoenhancing masscentered in the endometrium which measures roughly 7.6 x 3.1 x 4.1 cm(sagittal image 75, axial image 515). The mass extends from the level ofthe uterine fundus to the cervix. Mass does not appear to extend beyondthe parametrium, however this is suboptimally assessed on CT. There is noadnexal mass bilaterally. Bowel: No bowel dilatation or bowel wall thickening. Peritoneal cavity: No free air or free fluid is present in theabdomen/pelvis. No peritoneal, mesenteric, or omental thickening ornodularity. Lymph nodes: Borderline enlarged left external iliac lymph nodes measure0.9 cm (axial image 538) and 0.7 cm (axial image 524) in short axis.Retroperitoneal lymph nodes are not enlarged measuring up to 0.5 cm inshort axis (axial image 318). Vascular: There is mild calcific atherosclerosis of the abdominal aortaand its major branches without evidence of aneurysm. Major abdominal andpelvic vasculature appears patent. Abdominal wall: Fat is present along the umbilicus. Abdominal wall isotherwise intact. Musculoskeletal: No concerning focal osseous lesion is identified. Mildmultilevel degenerative changes are present in the lower thoracic andlumbar spine. Seismic Survey Assistant: No additional findings. IMPRESSION 1. Heterogeneously hypoenhancing mass centered within the uterusconsistent with pathology proven endometrial cancer. 2. Borderline enlarged left external iliac lymph nodes measure up to 0.9cm short axis. These may be reactive or could represent hilton spread ofmalignancy. 3. Atherosclerosis. [id number] us Marianna Bansal MD IMG CT ORDERABLES Final Result * (ABNORMAL) COMPLETE BLOOD COUNT (07/03/2024 6:56 EST) Only the most recent of2 resultswithin the time period is included. WBC 7.41 4.00 - 12.40 K/cmm 07/03/2024 7:22 [facility] RBC 3.76(L) 3.86 - 5.04 M/cmm 07/03/2024 7:22 [facility] Hemoglobin 12.4 11.6 - 15.2 g/dL 07/03/2024 7:22 [facility] HCT 35.8 34.9 - 44.4 % 07/03/2024 7:22 [facility] MCV 95 81 - 98 fL 07/03/2024 7:22 [facility] MCH 33.0 26.7 - 33.3 pg 07/03/2024 7:22 [facility] MCHC 34.6 32.1 - 35.9 g/dL 07/03/2024 7:22 [facility] RDW-CV 13.2 <14.7 % 07/03/2024 7:22 [facility] RDW-SD 46.0 <50.4 fl 07/03/2024 7:22 [facility] PLT 232 141 - 377 K/cmm 07/03/2024 7:22 [facility] MPV 10.2 9.5 - 12.7 fL 07/03/2024 7:22 [facility] Blood VENOUS BLOOD / Unknown Venipuncture / Unknown 07/03/2024 6:56 EST 07/03/2024 7:14 EST us Lidia Jc MD HEMATOLOGY & PF4 ORDERABLES Joana l Result Performing Organization Address [facility] Co de Phone Number [facility] [address] [place] [address] * (ABNORMAL) SCREENING GLUCOSE (07/02/2024 20:32 EST) Glucose, Screening 140(H) 70 - 100 mg/dL 07/02/2024 21:08 EST [facility] Blood VENOUS BLOOD / Unknown Venipuncture / Unknown 07/02/2024 20:32 EST 07/02/2024 20:39 EST Lidia Jc MD CHEMISTRY & BLOOD GAS ORDERABLES Final Result Performing Organization Address [facility] Co de Phone Number [facility] [address] [place] [address] * NON HAND IRONER/FNA CYTOLOGY (07/02/2024 16:29 EST) Note to Patient The following pathology results have been interpreted by your pathologist and may be available to you before your health provider has had the opportunity to review them. Please allow time for your provider to receive these results and explore management options, if applicable. 07/03/2024 16:32 EST [facility] Final Diagnosis A. PERITONEAL WASHINGS, CUL DE SAC, CYTOLOGIC EVALUATION: - Negative for malignant cells. 07/03/2024 16:32 [facility] Attestation There was significant resident/yordy w involvement in the diagnostic evaluation of this case. By the signature below, the attending physician certifies that they have personally conducted a gross and/or microscopic examination of the described specimens and rendered or confirmed the above diagnosis. 07/03/2024 16:32 EST [facility] at 1632 Clinical History Endometrial cancer (HCC-CMS) 07/03/2024 16:32 [facility] Gross Description A. 200cc's of clear colorless fluid were received and processed by selective cellular enhancement technique. 07/03/2024 16:32 [facility] Resident/Yordy w: Billie Curry DO 07/03/2024 16:32 [facility] Performing Lab [facility] 07/03/2024 16:32 [facility] Scanned Images 07/03/2024 16:32 [facility] Wash PERITONEAL FLUID / Unknown 07/02/2024 16:29 EST 07/03/2024 6:50 EST us Marianna Bansal MD PATHOLOGY ORDERABLES Fi nal Result [facility] [address] [place] [id number] * SURGICAL PATHOLOGY (07/02/2024 16:29 EST) Ancillary Studies Addendum At the request of Dr. Marianna Bansal, a block from [id number] (D3) was sent to [facility] for testing. For [facility] results, please see scanned report in EPIC. 07/29/2024 16:15 [facility] Addendum electronically signed by Viri Bradley MD on 07/29/2024 at 1615 Note to Patient The following pathology results have been interpreted by your pathologist and may be available to you before your health provider has had the opportunity to review them. Please allow time for your provider to receive these results and explore management options, if applicable. 07/29/2024 16:15 [facility] Final Diagnosis A. LYMPH NODE, RIGHT SENTINEL, EXCISION: - Three lymph nodes negative for malignancy (0/3). B. LYMPH NODE, PARA-AORTIC SENTINEL, EXCISION: - One lymph node negative for malignancy (0/1). C. LYMPH NODE, LEFT SENTINEL, EXCISION: - Two lymph nodes negative for malignancy (0/2). D. UTERUS, CERVIX, FALLOPIAN TUBES, AND OVARIES, HYSTERECTOMY AND BILATERAL SALPINGO-OOPHORECT YARY: - Endometrium: - Endometrial adenocarcinoma, endometrioid-type, FIGO grade 3 (AJCC pT2, (sn)pN0; FIGO stage IIC). - Myometrium: - Involved by endometrial carcinoma. - Cervix: - Involved by endometrial carcinoma. - Serosa: - No significant pathologic findings. - Negative for malignancy. - Fallopian tubes, bilateral: - No significant pathologic findings. - Negative for malignancy. - Ovaries, bilateral: - Cortical inclusion cysts. - Negative for malignancy. 07/29/2024 16:15 [facility] Diagnosis Comment Levels and pancytokeratin stains (AE1-AE3, [employer]) performed on all blocks of sentinel lymph nodes (A1-A3, B1-B3, C1-C3) are negative for carcinoma. Immunohistochemica l staining for mismatch repair (MMR) proteins for [place] [facility] Screening has been performed on a prior specimen which showed retained expression of all 4 MMR proteins. See [id number] for details. Immunoperoxidase stains were performed on this case to further characterize the lesion. ANTIBODY(CLONE)(BL OCK):RESULT CD34 (QBEnd/10, [employer]) (D3): Highlights lymphovascular invasion. NOTE: One or more of the reagents used in immunoperoxidase testing in this case may not have been cleared or approved by the U.S. Food and Drug Administration (FDA). The FDA has determined that such clearance or approval is not necessary. These tests are used for clinical purposes. They should not be regarded as investigational or for research. These reagents' performance characteristics have been determined by [facility] and/or by the referring laboratory. The positive and negative controls worked appropriately. If immunoperoxidase staining has been performed on alcohol fixed cytology specimens, which has not been fully validated, the assays should be interpreted with caution and correlated with clinical data. This laboratory is certified under the Clinical Laboratory Improvement Amendments of 1988 (CLIA-88) as qualified to perform high complexity clinical laboratory testing. 07/29/2024 16:15 [facility] Attestation There was significant resident/fellow involvement in the diagnostic evaluation of this case. By the signature below, the attending physician certifies that they have personally conducted a gross and/or microscopic examination of the described specimens and rendered or confirmed the above diagnosis. 07/29/2024 16:15 EST [facility] at 1259 [employer] ENDOMETRIUM ENDOMETRIUM - All Specimens 8th Edition - Protocol posted: 08/01/2023 SPECIMEN ?? Procedure: ?Total hysterectomy and bilateral salpingo-oophorect yary TUMOR ?? 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 Histologic Grade: ?FIGO grade 3 ?? Myometrial Invasion: ?Present ? Depth of Myometrial Invasion: ?20 mm ? Myometrial Thickness: ?26 mm ? Percentage of Myometrial Invasion: ?Estimated to be 50% or greater ?? Uterine Serosa Involvement: ?Not identified ?? Lower Uterine Segment Involvement: ?Present, myoinvasive ?? Cervical Stromal Involvement: ?Present ? Depth of Cervical Stroma Invasion: ?10.0 mm ? Cervical Stroma Thickness: ?16.0 mm ?? Other Tissue / Organ Involvement: ?Not identified ?? Peritoneal / Ascitic Fluid: ?Negative for malignant cells ?? Lymphatic and / or Vascular Invasion: ?Present ? : ?Extensive / substantial (greater than or equal to 5 vessel involvement) MARGINS ?? Margin Status: ?All margins negative for invasive carcinoma ? Closest Margin(s) to Invasive Carcinoma: ?Parametrial / paracervical ? Distance from Invasive Carcinoma to Closest Margin: ?At least: 6.0 mm REGIONAL LYMPH NODES ?? Regional Lymph Node Status: ? : ?All regional lymph nodes negative for tumor cells ? Lymph Nodes Examined: ? Total Number of Pelvic Nodes Examined: ?6 ? Number of Pelvic [place] Nodes Examined: ?6 ? Total Number of Para-aortic Nodes Examined: ?1 ? Number of Para-aortic [place] Nodes Examined: ?1 pTNM CLASSIFICATION (AJCC 8th Edition) ?? Reporting of pT, pN, and (when applicable) pM categories is based on information available to the pathologist at the time the report is issued. As per the AJCC (Chapter 1, 8th Ed.) it is the managing physician? s responsibility to establish the final pathologic stage based upon all pertinent information, including but potentially not limited to this pathology report. ?? pT Category: ?pT2 ?? pN Category: ?pN0 ?? N Suffix: ?(sn) FIGO STAGE ?? FIGO Stage: ?IIC 07/29/2024 16:15 [facility] Clinical History Endometrial cancer ([facility]) 07/29/2024 16:15 [facility] Gross Description A. Received in normal saline labelled with proper patient identification (initials G, L) and lymph node, sentinel right is a portion of fibrofatty tissue (2.8 x 2.0 x 0.5 cm), within which 3 probable lymph nodes are identified (1.5 x 0.6 x 0.2 cm to 1.0 x 0.8 x 0.6 cm). The nodes are sectioned and the cut surfaces are unremarkable. The lymph nodes are entirely submitted as follows: BLOCK SPRING A1- 1 node, bisected A2- 1 node, bisected A3- 1 node, quadrisected B. Received in normal saline labelled with proper patient identification (initials G, L) and lymph node, sentinel para-aortic is a single todd rubbery lymph node (1.8 x 1.1 x 0.9 cm). The node is serially sectioned and entirely submitted as B1-B3. C. Received in normal saline labelled with proper patient identification (initials G, L) and left sentinel lymph node are two probable lymph nodes are identified (1.9 x 1.2 x 0.6 cm to 2.7 x 1.3 x 1.0 cm). The nodes are sectioned and the cut surfaces are unremarkable. The lymph nodes are entirely submitted as follows: BLOCK SPRING C1- 1 node, trisected C2-C3- 1 node , quadrisected D. Received fresh labelled with proper patient identification (initials G, L) and uterus, cervix, bilateral fallopian tubes and ovaries is an intact uterus and cervix (240 g, 10.0 cm cervix to fundus x 6.0 cm cornu to cornu x 4.8 cm anterior to posterior) with attached bilateral fallopian tubes (right: 5.2 cm in length and 0.4 cm in diameter; left: 4.5 cm in length and 0.6 cm in diameter) and bilateral ovaries (right: 1.9 x 1.3 x 1.0 cm; left: 2.3 x 1.3 x 0.6 cm). The endometrium shows a soft friable and fungating mass (7.2 x 2.2 x 0.8 cm) involving the entire endometrium. The mass does extend into the lower uterine segment, and does involve the cervix. Sectioning discloses the mass invades to a maximal depth of 1.5 cm into a 1.9 cm thick myometrium. The uninvolved endometrium is entirely replaced by mass. The myometrium is pale todd and ranges from 0.5 to 3.8 cm in thickness. No myometrial nodules are identified. The uterine serosa is todd with an area of disruption on the posterior aspect (2.6 x 1.2 x 0.5 cm). The ectocervix is pale todd, and the endocervix is replaced by mass. The left and right ovaries have a todd and nodular serosa. Sectioning discloses a todd heterogeneous cut surface. The left and right fallopian tubes have a helms-todd serosa with bilateral clear fluid filled paratubal cysts and sectioning discloses a todd cut surface with a pinpoint lumen throughout. Consumer Sales Representative sections are submitted as follows: BLOCK SPRING D1- posterior cervix and mass D2- anterior cervix and mass D3- full-thickness posterior endomyometrium with greatest depth of myometrial invasion D4- posterior endomyometrium with serosal disruption D5- full-thickness anterior endomyometrium D6- entire right fimbriae, 2 cross-sections , paratubal cyst D7-D8- entire right ovary D9- entire left fimbriae, 2 cross sections, paratubal cyst D10-D11- entire left ovary BELGICA JACOBSON MD 07/03/2024 11:27 07/29/2024 16:15 EST [facility] Resident/Yordy w: Belgica Jacobson MD Raziel, Cassandra, MD 07/29/2024 16:15 EST [facility] Performing Lab [facility] 16:15 EST [facility] Scanned Images 07/29/2024 16:15 EST [facility] Tissue SENTINEL LYMPH NODE / Unknown 07/02/2024 16:29 EST 07/02/2024 23:53 EST Tissue specimen (specimen) SENTINEL LYMPH NODE / Unknown 07/02/2024 16:42 EST 07/02/2024 23:53 EST Tissue specimen (specimen) SENTINEL LYMPH NODE / Unknown 07/02/2024 16:51 EST 07/02/2024 23:53 EST Tissue specimen (specimen) UTERUS, FALLOPIAN TUBES AND OVARIES, CS / Unknown 07/02/2024 17:17 EST 07/02/2024 23:53 EST us Marianna Bansal MD PATHOLOGY ORDERABLES Ed ited Result - Final [facility] [address] [place] [id number] * MO AN ELECTIVE ENDOTRACHEAL AIRWAY (07/02/2024 15:31 EST) Narrative [facility] POINT OF CARE - 07/02/2024 15:31 EST Jett Heller MD ? 07/02/2024 15:48 Airway Date/Time: 07/02/2024 15:31 Urgency: elective General Information and Staff Patient location during procedure: OR Performed: anesthesiologist Performed by: Jett Heller MD Authorized by: Jett Heller MD ?? Indications and Patient Condition Indications for airway management: anesthesia Sedation level: GA Preoxygenated: yes Patient position: sniffing Ventilation assessment: 1 - Easy Final Airway Details Final airway type: endotracheal airway Successful airway: ETT Cuffed: yes Successful intubation technique: direct laryngoscopy Facilitating devices/methods: intubating stylet Endotracheal tube insertion site: oral Blade: Quiana Blade size: #3 ETT size (mm): 7.0 Cormack-Lehane Classification: grade IIa - partial view of glottis Placement verified by: chest auscultation and capnometry Measured from: teeth Number of attempts at approach: 1 us Jett Heller MD ANESTHESIA ORDERABLES Joana l Result [facility] POINT [facility]ARE * TYPE AND SCREEN (07/02/2024 12:33 EST) ABO B 07/02/2024 13:50 EST [facility] Rh Factor Positive 07/02/2024 13:50 EST [facility] Antibody Screen Negative 07/02/2024 13:50 EST [facility] Specimen Expires: 07/05/2024 @ 23:59 07/02/2024 13:50 EST [facility] Blood VENOUS BLOOD / Unknown Venipuncture / Unknown 07/02/2024 12:33 EST 07/02/2024 12:41 EST Lidia Jc MD BLOOD BANK TESTS Edited Result - Final Performing Organization Address City/[facility] Co de Phone Number [facility] [address] [facility] [place] [address] from Last 3 [place] [address] , [place] [address] , [place] [address] Advance Directives For more information, please contact: [phone] * Full Code (Latest Code Status on File) Date Activated Date Inactivated Comments 07/02/2024 12:04 07/03/2024 15:45 Question Answer Comments When the patient has NO PULSE: Full Code / CPR Who Made the Decision? Default/Not Discussed Care Teams Business Process Coordinator Relationship Specialty Start Date End Date Rena Flower PA [address] [place] [address] [place] [address] PCP - General Internal Medicine - Primary Care 06/24/24
--- OUTSIDE RECORDS SUMMARY | 2024-09-08 15:02 | XMS_ITS | Encounter Summary ---
Author Organization [facility] Address [address] [place] [address] Care Team Providers Care Upper Tier Name Role Phone Rena Flower Primary Care Provider + Reason for Visit * Reason Onset Date Comments Billing Question 09/05/2024 Encounter Details Date Type Department Care Team (Late st Contact Info) Description 09/05/2024 Telephone [facility] O[facility]YN Services - [facility] [address] [place], [place] [id number] Asiya Coombs, RN [address] [place] [address] Billing Question Social History Tobacco Use Types Packs/Day Years Used Date Smoking Tobacco: Former Cigarettes 0.5 10 Smokeless Tobacco: Never Comments:Started and Stopped several times Alcohol Use Standard Drinks/Week Comments Yes 4 (1 standard drink = 0.6 oz pur e alcohol) [facility] Utilities Answer Date Recorded In the past 12 months has [employer] electric, gas, oil, or water company threatened [...] money to get more. Never true 07/03/2024 [facility] - Inadequate Housing Answer Date Re corded What is your living situation today? I have a [facility] place to live 07/03/[address] you li ve. Do you have problems with any of the following? None of the above 07/03/2024 [facility] - Transportation Answer Date Record ed In the past 12 months, has l ack of reliable transportation kept you from medical appointments, meetings, work or from getting things needed for daily living? No 07/03/2024 [facility] - Personal Safety Answer Date Recor [...] Telephone Encounter - Asiya Coombs, RN - 09/05/2024 7157 EST Call to [facility] to f/u on letter that Gyn[facility] office received from insurance stating BRCA1/BRCA2 testing request has been denied. Spoke with [facility] Lu[facility], there is not a denial on file yet on their end. If the authorization is denied, [facility] willprovide further information requested by insurance. They will reach out to [facility] if further information is needed from If this is officially denied by insurance, [facility] will not bill pt. If approved, the most pt will have to pay is $100 documented in this encounter Plan of Treatment Not on file documented as of this encounter Visit Diagnoses Not on filedocumented in this encounter Care Teams Upper Tier Relationship Specialty Start Date End Date Rena Flower PA [address] [place] [address] [place] [address] PCP - General Internal Medicine - Primary Care 06/24/24 documented as of this encounter
--- OUTSIDE RECORDS SUMMARY | 2024-09-08 15:02 | XMS_ITS | Encounter Summary ---
Author Organization [facility] Address [address] [place] [address] Care Team Providers Care Medical Authorization Specialist Name Role Phone Rena Flower Primary Care Provider + Encounter Details Date Type Department Care Team (Late st Contact Info) Description 07/14/2024 Documentation Visit [facility] O[facility]YN Services - [facility] [address] [place] [address] Asiya Coombs, RN [address] [place] [address] Social History Tobacco Use Types Packs/Day Years Used Date Smoking Tobacco: Former Cigarettes 0.5 10 Smokeless Tobacco: Never Comments:Started and Stopped several times Alcohol Use Standard Drinks/Week Comments Yes 4 (1 standard drink = 0.6 oz pur e alcohol) [facility] Utilities Answer Date Recorded In the [...] money to get more. Never true 07/03/2024 [facility] - Inadequate Housing Answer Date Re corded What is your living situation today? I [facility] place to live 07/03/[address] you li ve. Do you have problems with any of the following? None of the above 07/03/2024 [facility] - Transportation Answer Date Record ed In the past 12 months, has l ack of reliable transportation kept you from medical appointments, meetings, work or from getting things needed for daily living? No 07/03/2024 [facility] - Personal Safety Answer Date Recor ded [...] documented in this encounter Progress Notes * Asiya Coombs RN - 07/14/2024 1015 EST [facility] testing ordered on specimen [id number] documented in this encounter Plan of Treatment Not on file documented as of this encounter Visit Diagnoses Not on filedocumented in this encounter Care Teams Medical Authorization Specialist Relationship Specialty Start Date End Date Rena Flower PA [address] [place] [address] [place] [phone] PCP - General Internal Medicine - Primary Care 06/24/24 documented as of this encounter
--- OUTSIDE RECORDS SUMMARY | 2024-09-08 15:02 | XMS_ITS | Encounter Summary ---
Author Organization [facility] Address [address] [place] [address] Care Team Providers Care Medical Director Name Role Phone Rena Flower Primary Care Provider + Reason for Visit * Reason Onset Date Comments Social Work 08/14/2024 Outreach call to pt Encounter Details Date Type Department Care Team (Late st Contact Info) Description 08/14/2024 Telephone [facility] Hematology & Oncology - [facility] [address] [place], [place] [phone] Bobbi Weaver, RANDELL Social Work (Outreach call to pt/) Social History Tobacco Use Types Packs/Day Years Used Date Smoking Tobacco: Former Cigarettes 0.5 10 Smokeless Tobacco: Never Comments:Started and Stopped several times Alcohol Use Standard Drinks/Week Comments Yes 4 (1 standard drink = 0.6 oz pur e alcohol) [facility] Utilities Answer Date Recorded In the past 12 months has [employer] electric, gas, oil, or water company threatened [...] money to get more. Never true 07/03/2024 [facility] - Inadequate Housing Answer Date Re corded What is your living situation today? I have a [facility] place to live 07/03/[address] you li ve. Do you have problems with any of the following? None of the above 07/03/2024 [facility] - Transportation Answer Date Record ed In the past 12 months, has l ack of reliable transportation kept you from medical appointments, meetings, work or from getting things needed for daily living? No 07/03/2024 [facility] - Personal Safety Answer Date Recor [...] encounter Miscellaneous Notes * Telephone Encounter - Bobbi Weaver MSW - 08/14/2024 5785 EST SOCIAL WORK PHONE ENCOUNTER Presenting Issue: Outreach call to pt Received a referral from Asiya Coombs RN last week as follows (per her note) Would like assistance with disability/FMLA Reviewed pt's EMR and her treatment plan will be XRT 5 days/week x 5 weeks. It appears that pt's FMLA forms were completed and submitted to her work HR on 08/11/24. Called pt ([phone]) and she confirms that she did receive a copy of her completed FMLA paperwork via [employer]. She had questions about what she needed to do with the [employer] that will be managingher disability claim. Advised her to reach out to her HR rep to familiarize herself with the STD/LTD process. Further discussed her treatment plan and she states that she will be going to [facility] to get her radiation as it will be much closer than here ([address] to [place]). Discussed possible lodging options to [facility] and this ADVERTISING SALES AGENT can check with the Cancer Center to see if there is a similar arrangement to our [facility]. Pt would be interested in knowing if there is options. Briefly discussed SW role as part of the team in addressing any barriers to her cancer treatment, such as travel cost (can get financial asst for gas cards or travel through the [employer], [employer], a funding source for [facility] and possibly, [facility]). Pt appreciative of call and this ADVERTISING SALES AGENT will send her a message via [employer] for her to refer to for contact info. Plan: Mailed out two $25 gas cards and this ADVERTISING SALES AGENT's contact card to pt. Also, messaged her via [employer] with above details. RANDELL Guido. documented in this encounter Plan of Treatment Not on file documented as of this encounter Visit Diagnoses Not on filedocumented in this encounter Care Teams Medical Director Relationship Specialty Start Date End Date Rena Flower PA [address] [place] [address] [place] [address] PCP - General Internal Medicine - Primary Care 06/24/24 documented as of this encounter
--- OUTSIDE RECORDS SUMMARY | 2024-09-08 15:02 | XMS_ITS | Encounter Summary ---
Author Organization [facility] Address [address] [place] [id number] Care Team Providers Care Policy Director Name Role Phone Rena Flower Primary Care Provider + Reason for Referral * Radiology Services (Routine/Next Available) - Receiving Office to Obtain Authorization Specialty Diagnoses / Procedures Referred By Contac t Referred To Contact Diagnoses Endometrial cancer (HCC-CMS) Procedures TUMOR BOARD RADIOLOGY CONSULT PEARL MAKER TUMOR BOARD RADIOLOGY CONSULT NON BREAST Theresa Bansal MD [address] [place] [phone] Phone: tel: fax: Referral ID Status Reason Start Date Expiration Date Visits Requested Visits Authorized [id number] Receiving Office to Obtain Authorization 4 1 1 * Radiology Services (Routine/Next Available) - Receiving Office to Obtain Authorization Specialty Diagnoses / Procedures Referred By Contac t Referred To Contact Diagnoses Endometrial cancer (HCC-CMS) Malignant neoplasm of endometrium (HCC-CMS) Procedures CT SUBSPECIALTY RADIOLOGY CONSULT CHEST Theresa Bansal MD [address] [place] [phone] Phone: tel: fax: [facility] Referral ID Status Reason Start Date Expiration Date Visits Requested Visits Authorized [id number] Receiving Office to Obtain Authorization 4 1 1 * Radiology Services (Routine/Next Available) - Receiving Office to Obtain Authorization Specialty Diagnoses / Procedures Referred By Contac t Referred To Contact Diagnoses Endometrial cancer (HCC-CMS) Procedures TUMOR BOARD RADIOLOGY CONSULT PEARL MAKER TUMOR BOARD RADIOLOGY CONSULT NON BREAST Theresa Bansal MD [address] [place] [phone] Phone: tel: fax: Referral ID Status Reason Start Date Expiration Date Visits Requested Visits Authorized [id number] Receiving Office to Obtain Authorization 4 1 1 * Radiology Services (Routine/Next Available) - Receiving Office to Obtain Authorization Specialty Diagnoses / Procedures Referred By Contac t Referred To Contact Diagnoses Endometrial cancer (HCC-CMS) Malignant neoplasm of endometrium (HCC-CMS) Procedures CT SUBSPECIALTY RADIOLOGY CONSULT BODY Theresa Bansal MD [address] [place] [phone] Phone: tel: fax: [facility] Referral ID Status Reason Start Date Expiration Date Visits Requested Visits Authorized [id number] Receiving Office to Obtain Authorization 4 1 1 Reason for Visit * Radiology Services (Routine/Next Available) - Receiving Office to Obtain Authorization Specialty Diagnoses / Procedures Referred By Contac t Referred To Contact Diagnoses Endometrial cancer (HCC-CMS) Malignant neoplasm of endometrium (HCC-CMS) Procedures CT SUBSPECIALTY RADIOLOGY CONSULT BODY Theresa Bansal MD [address] [place] [phone] Phone: tel: fax: [facility] Referral ID Status Reason Start Date Expiration Date Visits Requested Visits Authorized [id number] Receiving Office to Obtain Authorization 4 1 1 Encounter Details Date Type Department Care Team (Latest Contact Info) Description 07/15/2024 6:39 EST - 07/15/2024 23:59 EST Hospital Encounter [facility] Radiology - [address] [address] Endometrial cancer (HCC-CMS); Malignant neoplasm of endometrium (HCC-CMS) Discharge Disposition: Home or Self Care Social History Tobacco Use Types Packs/Day Years Used Date Smoking Tobacco: Former Cigarettes 0.5 10 Smokeless Tobacco: Never Comments:Started and Stopped several times Alcohol Use Standard Drinks/Week Comments Yes 4 (1 standard drink = 0.6 oz pur e alcohol) [facility] Utilities Answer Date Recorded In the [...] money to get more. Never true 07/03/2024 [facility] - Inadequate Housing Answer Date Re corded What is your living situation today? I have a [facility] place to live 07/03/[address] you li ve. Do you have problems with any of the following? None of the above 07/03/2024 [facility] - Transportation Answer Date Record ed In the past 12 months, has l ack of reliable transportation kept you from medical appointments, meetings, work or from getting things needed for daily living? No 07/03/2024 [facility] - Personal Safety Answer Date Recor [...] De Santiago RN documented in this encounter Medications at Time of Discharge acetaminophen (TYLENOL) 500 mg tablet Take 2 Tablets by mouth every 8 hours as needed for Pain. 07/03/2024 cholecalciferol, Vitamin D3, 25 mcg (1,000 unit) tablet Take 1 Tablet by mouth daily. citalopram (CELEXA) 20 mg tablet Take 0.5 Tablets by mouth daily. docusate sodium (COLACE) 100 mg capsule Take 1 Capsule by mouth 2 times daily as needed for Constipation. 60 Capsule 07/03/2024 ibuprofen (MOTRIN) 800 mg tablet Take 1 Tablet by mouth every 8 hours as needed for Pain. 07/03/2024 magnesium oxide (MAG-OX) 400 mg (241.3 mg magnesium) tablet Take 1 Tablet by mouth daily. omega 1-emn-szh-fish oil 350 mg-235 mg- 90 mg-597 mg capsule,delayed release(DR/EC) Take by mouth. oxyCODONE (ROXICODONE) 5 mg immediate release tablet Take 1 Tablet by mouth every 4 hours as needed for Pain. Daily Max: 30 mg 5 Tablet 07/03/2024 VITAMIN B COMPLEX-100 ORAL Take 1 Tablet by mouth daily. 04/16/2024 documented as of this encounter Discharge Disposition Disposition Code Departure Means Destination Home or Self Care documented in this encounter Plan of Treatment Not on file documented as of this encounter Procedures Procedure Name Priority Date/Time Associated Diagnosis Comments TUMOR BOARD RADIOLOGY CONSULT PEARL MAKER Routine 07/15/2024 6:45 EST Endometrial cancer (HCC-CMS) CT SUBSPECIALTY RADIOLOGY CONSULT CHEST Routine 07/15/2024 6:43 EST Endometrial cancer (HCC-CMS) Malignant neoplasm of endometrium (HCC-CMS) TUMOR BOARD RADIOLOGY CONSULT PEARL MAKER Routine 07/15/2024 6:41 EST Endometrial cancer (HCC-CMS) CT SUBSPECIALTY RADIOLOGY CONSULT BODY Routine 07/15/2024 6:39 EST Endometrial cancer (HCC-CMS) Malignant neoplasm of endometrium (HCC-CMS) documented in this encounter Results * TUMOR BOARD RADIOLOGY CONSULT PEARL MAKER (07/15/2024 6:45 EST) Anatomical Region Laterality Modality Other 08/19/2024 13:1 1 EST Narrative 08/19/2024 13:11 EST TUMOR BOARD IMAGING REVIEW Tumor board: Gynecology oncology Date of tumor board: 07/24/2024 Indication: Endometrial cancer. ?? Imaging studies reviewed: CT of the chest with contrast from [facility] 06/11/2024 Comments: A focused interpretation for the purpose of tumor board/MDC discussion was performed for the imaging exams listed above. [id number] Resulting Agency Comment [id number] Procedure Note Jimenez Perez MD - 08/19/2024 TUMOR BOARD IMAGING REVIEW Tumor board: Gynecology oncology Date of tumor board: 07/24/2024 Indication: Endometrial cancer. Imaging studies reviewed: CT of the chest with contrast from [facility] 06/11/2024 Comments: A focused interpretation for the purpose of tumor board/MDC discussion wasperformed for the imaging exams listed above. [id number] us Theresa Bansal MD IMG CT ORDERABLES Final Result [...] in 6 months or per clinical protocol. [id number] Narrative 07/15/2024 10:32 EST 07/15/2024 6:43 AM [...] in the bones. ?? Resulting Agency Comment [id number] Procedure Note Win Tatum MD - 07/15/2024 [...] in 6 months or per clinical protocol. [id number] Theresa Bansal MD IMG CT ORDERABLES Final Result * TUMOR BOARD RADIOLOGY CONSULT PEARL MAKER (07/15/2024 6:41 EST) Anatomical Region Laterality Modality Other 08/19/2024 13:1 1 EST Narrative 08/19/2024 13:11 EST TUMOR BOARD IMAGING REVIEW Tumor board: Gynecology oncology Date of tumor board: 07/24/2024 Indication: Endometrial cancer. ?? Imaging studies reviewed: CT abdomen/pelvis with contrast from [facility] 05/29/2024 Comments: A focused interpretation for the purpose of tumor board/MDC discussion was performed for the imaging exams listed above. [id number] Resulting Agency Comment [id number] Procedure Note Jimenez Perez MD - 08/19/2024 TUMOR BOARD IMAGING REVIEW Tumor board: Gynecology oncology Date of tumor board: 07/24/2024 Indication: Endometrial cancer. Imaging studies reviewed: CT abdomen/pelvis with contrast from [facility] 05/29/2024 Comments: A focused interpretation for the purpose of tumor board/MDC discussion wasperformed for the imaging exams listed above. [id number] Theresa Bansal MD IMG CT ORDERABLES Final Result [...] represent hilton spread of malignancy. 3. ??Atherosclerosis. [id number] Narrative 07/15/2024 17:[address] SUBSPECIALTY RADIOLOGY CONSULT BODY ??07/15/2024 6:39 AM Signs and Symptoms/Comments: TUMOR BOARD REVIEW Technique: This is a secondary interpretation of CT abdomen and pelvis with IV contrast images obtained at [facility] on 05/29/2024, performed at the request of the ordering provider, THERESA BANSAL MD. Comparison: Pelvic ultrasound from an [...] in the lower thoracic and lumbar spine. Tobacco Feeder Catcher: No additional findings. Resulting Agency Comment [id number] Procedure Note Janice Moreno MD - 07/15/2024 CT SUBSPECIALTY RADIOLOGY CONSULT BODY 07/15/2024 6:39 AM Signs and Symptoms/Comments: TUMOR BOARD REVIEW Technique: This is a secondary interpretation of CT abdomen and pelviswith IV contrast images obtained at [facility] on 05/29/2024,performed at the request of the ordering provider, THERESA BANSAL MD. Comparison: Pelvic ultrasound from an [...] present in the lower thoracic andlumbar spine. Tobacco Feeder Catcher: No additional findings. IMPRESSION 1. Heterogeneously hypoenhancing mass centered within the uterusconsistent with pathology proven endometrial cancer. 2. Borderline enlarged left external iliac lymph nodes measure up to 0.9cm short axis. These may be reactive or could represent hilton spread ofmalignancy. 3. Atherosclerosis. [id number] us Theresa Bansal MD IMG CT ORDERABLES Final Result documented in this encounter Visit Diagnoses Diagnosis Endometrial cancer (HCC-CMS) Malignant neoplasm of corpus uteri, except isthmus Malignant neoplasm of endometrium (HCC-CMS) Malignant neoplasm of corpus uteri, except isthmus documented in this encounter Care Teams Policy Director Relationship Specialty Start Date End Date Rena Flower PA [address] [place] [address] [place] [address] PCP - General Internal Medicine - Primary Care 06/24/24 documented as of this encounter
--- OUTSIDE RECORDS SUMMARY | 2024-09-08 15:02 | XMS_ITS | Continuity of Care Document ---
Author Organization [facility] Address [address] [place] [address] Care Team Providers Care Master Cook Name Role Phone Ching Rena C Primary Care Physician Encounter [facility] Date(s): 04/16/24 - 04/16/[address] [phone] Discharge Disposition: Home Allergies, Adverse Reactions, Alerts [...] Daily, # 90 tab, 3 Refill(s), Pharmacy: [id number] Start Date: 02/12/23 Status: Ordered clotrimazole 1% [...] 0 Refill(s) Start Date: 02/03/22 Status: Ordered [place]-3 Fish Oil 1,000 mg =, Oral, BID, [...] Physician Member Role: Primary Care Physician Address: [facility] [place] [address]- Care Team Related Persons Name: RIVER OBANDO Insurance Providers Guarantor name: RANJAN OBANDO Health Plan Information #: 1 Payer: [employer] Member Number: NA Policy Number: NA Health Plan Information #: 2 Payer: [facility] Member Number: NA Policy Number: NA
--- OUTSIDE RECORDS SUMMARY | 2024-09-08 15:02 | XMS_ITS | Encounter Summary ---
Author Organization [facility] Address [address] [place] [address] Care Team Providers Care Senior Biostatistician/Group Leader Name Role Phone Rena Flower Primary Care Provider + Reason for Visit * Reason Onset Date Comments Advice Only 08/15/2024 Encounter Details Date Type Department Care Team (Late st Contact Info) Description 08/15/2024 Telephone [facility] OBGYN Services - [address] [phone] Marianna Bansal MD [address] [facility] [address] [place] [address] Advice Only Social History Tobacco Use Types Packs/Day Years Used Date Smoking Tobacco: Former Cigarettes 0.5 10 Smokeless Tobacco: Never Comments:Started and Stopped several times Alcohol Use Standard Drinks/Week Comments Yes 4 (1 standard drink = 0.6 oz pur e alcohol) [facility] Utilities Answer Date Recorded In the past 12 months has [employer] electric, gas, oil, or water [employer] threatened to shut off services in your [...] money to get more. Never true 07/03/2024 [facility] - Inadequate Housing Answer Date Re corded What is your living situation today? I have a [facility] place to live 07/03/[address] you li ve. Do you have problems with any of the following? None of the above 07/03/2024 [facility] - Transportation Answer Date Record ed In the past 12 months, has l ack of reliable transportation kept you from medical appointments, meetings, work or from getting things needed for daily living? No 07/03/2024 [facility] - Personal Safety Answer Date Recor ded [...] Miscellaneous Notes * Telephone Encounter - Asiya Coombs RN - 08/15/2024 1439 EST Returned call to pt- Pt had RTLH, BSO on 07/02/24. Pt reports small amount of spotting onset yesterday. Describes as brownish in color. Using a panty liner; not soaking through Denies fever Tiffany abdominal pain Denies foul vaginal odor Discussed normal post-op expectations. Discussed when emergent f/u is needed Encouraged to contact clinic PRN * Telephone Encounter - Mariia Basilio - 08/15/2024 1423 EST Patient called in today to chat with an RN about a small about of spotting she has been experiencing since yesterday. She can be reached at: [phone] documented in this encounter Plan of Treatment Not on file documented as of this encounter Visit Diagnoses Not on filedocumented in this encounter Care Teams Senior Biostatistician/Group Leader Relationship Specialty Start Date End Date Rena Flower PA [address] [place] [address] [place] [phone] PCP - General Internal Medicine - Primary Care 06/24/24 documented as of this encounter
--- OUTSIDE RECORDS SUMMARY | 2024-09-08 15:02 | XMS_ITS | Encounter Summary ---
Author Organization [facility] Address [address] [place] [address] Care Team Providers Care Field Laboratory Operator Name Role Phone Rena Flower Primary Care Provider + Reason for Visit * Reason Comments Tumor Board * Consult (Routine/Next Available) - New Request Specialty Diagnoses / Procedures [facility] Ref[facility] To Contact Hematology and Oncology Diagnoses Endometrial cancer ([facility]) Marianna Bansal MD [address] [place] [address] [address] [place] [address] Phone: tel: fax: Referral ID Status Reason Start Date Expiration Date Visits Requested Visits Authorized [id number] New Request Specialty Services Required 4 1 1 Encounter Details Date Type Department Care Team (Late st Contact Info) Description 07/24/2024 7:30 EST Tumor Board [facility] Hematology & [place] [address] Endometrial cancer ([facility]) (Primary Dx) Social History Tobacco Use Types Packs/Day Years Used Date Smoking Tobacco: Former Cigarettes 0.5 10 Smokeless Tobacco: Never Comments:Started and Stopped several times Alcohol Use Standard Drinks/Week Comments Yes 4 (1 standard drink = 0.6 oz pur e alcohol) [facility] Utilities Answer Date Recorded In the [...] money to get more. Never true 07/03/2024 [facility] - Inadequate Housing Answer Date Re corded What is your living situation today? I have a [facility] place to live 07/03/[address] you li ve. Do you have problems with any of the following? None of the above 07/03/2024 [facility] - Transportation Answer Date Record ed In the past 12 months, has l ack of reliable transportation kept you from medical appointments, meetings, work or from getting things needed for daily living? No 07/03/2024 [facility] - Personal Safety Answer Date Recor [...] Assessment Author No 07/03/2024 0:00 Anamaria De Santigao RN * Do you have difficulty dressing [...] De Santiago RN documented in this encounter Plan of Treatment Scheduled Referrals Name Type Priority Associated Diagnoses Orde r Schedule AMB CONSULT/FOLLOW UP TUMOR BOARD Outpatient Referral Routine Endometrial cancer ([facility]) Ordered: 07/09/2024 documented as of this encounter Visit Diagnoses Diagnosis Endometrial cancer ([facility])- Primary Malignant neoplasm of corpus uteri, except isthmus documented in this encounter Care Teams Field Laboratory Operator Relationship Specialty Start Date End Date Rena Flower PA [address] [place] [address] [place] [phone] PCP - General Internal Medicine - Primary Care 06/24/24 documented as of this encounter
--- OUTSIDE RECORDS SUMMARY | 2024-09-08 15:02 | XMS_ITS | Encounter Summary ---
Author Organization [facility] Address [address] [place] [address] Care Team Providers Care Senior Corporate Recruiter Name Role Phone Rena Flower Primary Care Provider + Reason for Visit * Reason Onset Date Comments Appointment Related 07/28/2024 Encounter Details Date Type Department Care Team (Late st Contact Info) Description 07/28/2024 Telephone [facility] OBGYN Services - [address] [phone] Marianna Bansal MD [address] [facility], [address] [place] [address] Appointment Related Social History Tobacco Use Types Packs/Day Years Used Date Smoking Tobacco: Former Cigarettes 0.5 10 Smokeless Tobacco: Never Comments:Started and Stopped several times Alcohol Use Standard Drinks/Week Comments Yes 4 (1 standard drink = 0.6 oz pur e alcohol) [facility] Utilities Answer Date Recorded In the past 12 months has [employer] electric, gas, oil, or water [employer] threatened to shut off services in your [...] to get more. Never true 07/03/2024 [facility] - Inadequate Housing Answer Date Re corded What is your living situation today? I have a [facility] place to live 07/03/[address] you li ve. Do you have problems with any of the following? None of the above 07/03/2024 [facility] - Transportation Answer Date Record ed In the past 12 months, has l ack of reliable transportation kept you from medical appointments, meetings, work or from getting things needed for daily living? No 07/03/2024 [facility] - Personal Safety Answer Date Recor [...] No 07/03/2024 0:00 EST Anamaria Mejía , RN documented in this encounter Miscellaneous Notes * Telephone Encounter - Radha Kapadia - 07/28/2024 1136 EST Pc to pt to schedule appointment to discuss TB results, pt offered 08/05, pt accepted. Pt agrees with plan and has no further questions at this time. documented in this encounter Plan of Treatment Not on file documented as of this encounter Visit Diagnoses Not on filedocumented in this encounter Care Teams Senior Corporate Recruiter Relationship Specialty Start Date End Date Rena Flower PA [address] [place] [address] [place] [address] PCP - General Internal Medicine - Primary Care 06/24/24 documented as of this encounter
--- OUTSIDE RECORDS SUMMARY | 2024-09-08 15:02 | XMS_ITS | Encounter Summary ---
Author Organization [facility] Address [address] [place] [address] Care Team Providers Care Bakery Associate Name Role Phone Rena Flower Primary Care Provider + Reason for Visit * Reason Onset Date Comments Post-OP Follow Up 07/04/2024 Encounter Details Date Type Department Care Team ([facility] Contact Info) Description 07/04/2024 Telephone [facility] OBGYN Services - [facility] [address] [place] [address] Asiya Coombs, RN [address] [place] [address] Post-OP Follow Up Social History Tobacco Use Types Packs/Day Years Used Date Smoking Tobacco: Former Cigarettes 0.5 10 Smokeless Tobacco: Never Comments:Started and Stopped several times Alcohol Use Standard Drinks/Week Comments Yes 4 (1 standard drink = 0.6 oz pur e alcohol) [facility] Utilities Answer Date Recorded In the past 12 months has [employer] electric, gas, oil, or water company threatened [...] money to get more. Never true 07/03/2024 [facility] - Inadequate Housing Answer Date Re corded What is your living situation today? [facility] 07/03/[address] you li ve. Do you have problems with any of the following? None of the above 07/03/2024 [facility] - Transportation Answer Date Record ed In the past 12 months, has l ack of reliable transportation kept you from medical appointments, meetings, work or from getting things needed for daily living? No 07/03/2024 [facility] - Personal Safety Answer Date Recor ded [...] Notes * Telephone Encounter - Asiya Coombs, IFTIKHAR - 07/04/2024 1417 EST Call to patient s/p RTLH, BSO, ICG dye injection, BSLN Bx, cystoscopy Pain control: taking Tylenol and Ibuprofen with good relief Elimination: has not had a BM yet. Taking docusate BID. Advised adding Miralax.+flatus. will call clinic Sunday if has not moved bowels by then Intake: decreased but OK. Denies nausea Fever: none Incisional sites: denies s/s infection Vaginal Bleeding: it's much better. Discussed what to watch out for and when to call clinic F/U appointment: 07/15/24 @[address] Bansal Pt advised to call in the interim with questions or concerns. documented in this encounter Plan of Treatment Not on file documented as of this encounter Visit Diagnoses Not on filedocumented in this encounter Care Teams Bakery Associate Relationship Specialty Start Date End Date Rena Flower PA [address] [place] [address] [place] [phone] PCP - General Internal Medicine - Primary Care 06/24/24 documented as of this encounter
--- OUTSIDE RECORDS SUMMARY | 2024-09-08 15:02 | XMS_ITS | Encounter Summary ---
Author Organization [facility] Address [address] [place] [address] Care Team Providers Care Senior Materials Planner Name Role Phone Rena Flower Primary Care Provider + Reason for Referral * Consult (Routine/Next Available) - Receiving Office to Obtain Authorization Specialty Diagnoses / Procedures Referred By Contac t Referred To Contact Diagnoses Endometrial cancer ([facility]) Marianna Bansal MD [address] [place] [phone] Phone: tel: fax: [facility] [place] [facility] - [address] [address] Phone: tel: fax: Referral ID Status Reason Start Date Expiration Date Visits Requested Visits Authorized [id number] Receiving Office to Obtain Authorization Specialty Services Required 08/05/20 24 1 1 Question Answer Disability Yes * Consult (Urgent) - Receiving Office to Obtain Authorization Specialty Diagnoses / Procedures Referred By Contac t Referred To Contact Diagnoses Endometrial cancer ([facility]) Marianna Bansal MD [address] [place] [phone] Phone: tel: fax: Referral ID Status Reason Start Date Expiration Date Visits Requested Visits Authorized [id number] Receiving Office to Obtain Authorization Specialty Services Required 08/05/20 1 1 Question Answer Reason for Request: 58 yo Dx 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 SITE [facility] gynecology oncology Comments Pt would like to establish care closer to home * Consult (Routine/Next Available) - Receiving Office to Obtain Authorization Specialty Diagnoses / Procedures Referred By Everett t Referred To Contact Diagnoses Endometrial cancer ([facility]) Marianna Bansal MD [address] [place] [phone] Phone: tel: fax: Referral ID Status Reason Start Date Expiration Date Visits Requested Visits Authorized [id number] Receiving Office to Obtain Authorization Specialty Services Required 08/05/20 1 1 Question Answer Reason for Request: 58 yo 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 Gynecology Oncology Comments Pt would like to establish care closer to home Reason for Visit * Reason Comments Follow-up Discuss TB results a nd next steps; hx endometrial cancer Encounter Details Date Type Department Care Team (Late st Contact Info) Description 08/05/2024 9:00 EST Office Visit [facility] OBGYN Services - [address] [phone] Marianna Bansal MD [address] [place] [address] [address] [place] [address] Endometrial cancer ([facility]) (Primary Dx) Social History Tobacco Use Types Packs/Day Years Used Date Smoking Tobacco: Former Cigarettes 0.5 10 Smokeless Tobacco: Never Comments:Started and Stopped several times Alcohol Use Standard Drinks/Week Comments Yes 4 (1 standard drink = 0.6 oz pur e alcohol) [facility] Utilities Answer Date Recorded In [...] to get more. Never true 07/03/2024 [facility] - Inadequate Housing Answer Date Re corded What is your living situation today? I have a [facility] [place] place to live 07/03/[address] you li ve. Do you have problems with any of the following? None of the above 07/03/2024 [facility] - Transportation Answer Date Record ed In the past 12 months, has l ack of reliable transportation kept you from medical appointments, meetings, work or from getting things needed for daily living? No 07/03/2024 [facility] - Personal Safety Answer Date [...] 08/05/2024 0849 EST Pulse - - Temperature - - Respiratory Rate - - Oxygen Saturation - - Inhaled Oxygen Concentration - - Weight 70.3 kg (155 lb) 08/05/2024 0849 EST Height - - Body Mass Index 28.35 07/02/2024 1209 EST documented in this encounter Functional Status * Are you [...] documented in this encounter Progress Notes * Marianna Bansal MD - 08/05/2024 0900 EST Images from the original note were not included. CC: Post-op visit Subjective: Identification: Fatoumata Lewis is a 58 y.o. 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 Here today to f/u on tumor board recommendations. HPI: Fatoumata is presenting for a follow-up visit and to discuss tumor board recommendations; She is in good health. She notes continuing constipation since the procedure, but is still taking Colace and miralax. She has a bowel movement every day but notes that it sometimes just is not a lot volume-preston. She has been anxious about her treatment plan and is ready to hear what will happen moving forward.She was told by the radiation doc that she may need to take time off work and would like to discussif she should do this; she has a form that she needs signed if she wants more time off. She also reported minor vaginal spotting with some occasional scant brown discharge. Otherwise, she has had no vaginal bleeding, urinary problems, SOB, N/V, fevers, or chills. ROS: Patient denies any fever, chills, nausea, vomiting, or diarrhea. She is tolerating a regular diet, has a good appetite, and she is eating full meals. She is voiding without difficulty and can start, stop, and empty her bladder. She is passing gas with semi-regular bowel movements and is managing constipation with medications listed above, no blood in the urine, no blood in the stool. No weight loss, weight gain, early satiety, or abdominal bloating. No abdominal or pelvic pain and no new lumps or bumps. OBJECTIVE: Vitals: BP 126/80 (BP Cuff Location: Left arm, BP Patient Position: Sitting) Wt 70.3 kg (155 lb) BMI 28.35 kg/m?? Physical Exam: Gen: WD, WN, NAD, AO3 Head: NC/AT CV: No cyanosis Resp: Normal WOB on RA Pathology: Synoptic ENDOMETRIUM 8th Edition - Protocol posted: 08/01/2023ENDOMETRIUM - All Specimens SPECIMEN Procedure Total hysterectomy and bilateral salpingo-oophorectomy TUMOR Histologic Type Endometrioid carcinoma, NOS Histologic Grade FIGO grade 3 Myometrial Invasion Present Depth of Myometrial Invasion 20 mm Myometrial Thickness 26 mm Percentage of Myometrial Invasion Estimated to be 50% or greater Uterine Serosa Involvement Not identified Lower Uterine Segment Involvement Present, myoinvasive Cervical Stromal Involvement Present Depth of Cervical Stroma Invasion 10.0 mm Cervical Stroma Thickness 16.0 mm Other Tissue / Organ Involvement Not identified Peritoneal / Ascitic Fluid Negative for malignant cells Lymphatic and / or Vascular Invasion Present Extensive / substantial (greater than or equal to 5 vessel involvement) MARGINS Margin Status All margins negative for invasive carcinoma Closest Margin(s) to Invasive Carcinoma Parametrial / paracervical Distance from Invasive Carcinoma to Closest Margin At least: 6.0 mm REGIONAL LYMPH NODES Regional Lymph Node Status All regional lymph nodes negative for tumor cells Lymph Nodes Examined Total Number of Pelvic Nodes Examined 6 Number of Pelvic [place] Nodes Examined 6 Total Number of Para-aortic Nodes Examined 1 Number of Para-aortic [place] Nodes Examined 1 pTNM CLASSIFICATION (AJCC 8th Edition) Reporting [...] not limited to this pathology report. pT Category pT2 pN Category pN0 N Suffix (sn) FIGO STAGE FIGO Stage IIC Caris Somatic Testing See SCANS for full CARIS report Tumor Board Recommendations: -Proceed with radiation therapy in [facility] per plan from Dr. Pollard consult on 07/23/24 -Consider short interval imaging for close monitoring of lung lesions (3-6 months). -Consider adding in cistplatin followed by carbo taxol in [facility] ([facility]) Assessment: Fatoumata Lewis is a 58 y.o. 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 Plan: 40 1) Refer to Chair Frame Builder Radiation Oncology at [facility] for plan for whole pelvis radiation. Patient lives near [place], so wondering if there is treatment center closer to her home through [facility]. Plan for 5 days of radiation/wk for 5 weeks. Patient will discuss procedure and risks in details with RadOnc, butdiscussed some side effects today including bladder irritation and diarrhea. -Also reviewed pros/cons of chemosensitization with weekly Cis vs WPRT alone. (GOG 249 and Portec 3results) -Also reviewed Portec 3 option with Cis week 1/week 4 during WPRT, followed by 4 cycles of Carbo/Taxol. -Also reviewed option of WPRT vs. 3 cycles of chemo and vaginal brachy. -Reviewed side effects of carbo/Taxol, -Patient falls into sort of a data free zone. -Her somatic tumor testing also is difficult to interpret, but suggestive of a benefit to chemo and/or Pembro. -Germline testing is pending 2) F/u with Dr. Bansal 1 month after radiation treatment ends. 3) Surveillance plan: q3mo for years 1, 2, then q4mo for year 3, then q6mo for years 4,5, then yearly. Kathy Merced, MS4 08/05/24 9:14 I was present with the medical student for the history, exam, and medical decision making documentation. I have personally performed my own pertinent history, physical exam and medical decision making. I have verified and agree with or have edited the medical student's note to accurately reflect the encounter. I agree with the note and plan as outlined above. I spent a total of 40 minutes on the date of this encounter meeting with the patient and reviewing documentation/coordinating care as described in the above note. No procedures were performed at the time of the visit. Marianna Bansal MD * Asiya Coombs RN - 08/05/2024 0900 EST Met with pt, her spouse and daughter in law Very briefly discussed chemotherapy and the chemo binder. Referral placed for Social Work- pt would like assistance with disability/FMLA Referral placed online to [facility] and [facility]- pt would like to establish care closer to home. Also faxed referral (with face sheet, pathology, and office note) to [facility] office [place] Genetic testing reviewed with pt, video watched, forms signed. Labs drawn via venipuncture toRAC performed X1 attempt without difficulty. Miscellaneous non-mosley order placed. Order placed online and kit walked to [facility] lab Pt will let us know what she would like for a work note documented in this encounter Plan of Treatment Scheduled Referrals Name Type Priority Associated Diagnoses Order Schedule AMB CONS/FOLLOW UP ONCOLOGY Outpatient Referral Routine/Next Available Endometrial cancer (HCC-CMS) Expected: 08/12/2024 (Approximate), Expires: 08/05/2025 AMB CONS/FOLLOW UP RADIATION ONCOLOGY Outpatient Referral Urgent Endometrial cancer (HCC-CMS) Expected: 08/07/2024 (Approximate), Expires: 08/05/2025 AMB SOCIAL WORK SERVICES Outpatient Referral Routine/Next Available Endometrial cancer ([facility]) Expected: 08/12/2024 (Approximate), Expires: 08/05/2025 documented as of this encounter Results * MISCELLANEOUS TEST, NON MOSLEY (08/05/2024 15:15 EST) Test Name [facility] 08/27/2024 15:28 EST [facility] Blood VENOUS BLOOD / Unknown Venipuncture / Unknown 08/05/2024 15:15 EST 08/05/2024 15:15 EST Narrative [facility] - 08/27/2024 15:28 EST See scanned/supplementary report. us Marianna Bansal MD CHEMISTRY & BLOOD GAS O RDERABLES Final Result [facility] [address] [place] [address] documented in this encounter Visit Diagnoses Diagnosis Endometrial cancer (HCC-CMS)- Primary Malignant neoplasm of corpus uteri, except isthmus documented in this encounter Care Teams Senior Materials Planner Relationship Specialty Start Date End Date Rena Flower PA [address] [place] [address] [place] [phone] PCP - General Internal Medicine - Primary Care 06/24/24 documented as of this encounter
--- OUTSIDE RECORDS SUMMARY | 2024-09-08 15:02 | XMS_ITS | Encounter Summary ---
Author Organization [facility] Address [address] [place] [address] Care Team Providers Care Department Of Sociology Chair Name Role Phone Rena Flower Primary Care Provider + Reason for Visit * Reason Comments Tumor Board * Consult (Routine/Next Available) - New Request Specialty Diagnoses / Procedures [facility] Referred To Contact Hematology and Oncology Diagnoses Endometrial cancer ([facility]) Marianna Bansal MD [address] [place] [address] [address] [place] [address] Phone: tel: fax: Referral ID Status Reason Start Date Expiration Date Visits Requested Visits Authorized [id number] New Request Specialty Services Required 4 1 1 Encounter Details Date Type Department Care Team (Late st Contact Info) Description 08/07/2024 8:15 EST Tumor Board [facility] Hematology & [place] [address] Endometrial cancer ([facility]) (Primary Dx) Social History Tobacco Use Types Packs/Day Years Used Date Smoking Tobacco: Former Cigarettes 0.5 10 Smokeless Tobacco: Never Comments:Started and Stopped several times Alcohol Use Standard Drinks/Week Comments Yes 4 (1 standard drink = 0.6 oz pur e alcohol) [facility] Utilities Answer Date Recorded In the [...] get more. Never true 07/03/2024 [facility] - Inadequate Housing Answer Date Re corded What is your living situation today? I have a [facility] [place] place to live 07/03/[address] you li ve. Do you have problems with any of the following? None of the above 07/03/2024 [facility] - Transportation Answer Date Record ed In the past 12 months, has l ack of reliable transportation kept you from medical appointments, meetings, work or from getting things needed for daily living? No 07/03/2024 [facility] - Personal Safety Answer Date Recor [...] Progress Notes * Blanka Bhagat RN - 08/07/2024 0815 EST Transdisciplinary team presenting case: Gynecologic Oncology Date of Presentation: 08/07/24 Patient Name: Fatoumata Lewis Diagnosis: ICD-10-CM ICD-9-CM 1. Endometrial cancer ([facility]) C54.1 182.0 AJCC Stage: AJCC pT2, (sn)pN0; FIGO stage IIC) Clinical Question: Treatment recommendations Radiology Question: Discuss dz extent/staging for tx plan Prospective Presentation? Yes Clinical Trial Option Discussed? N/A. No applicable clinical trials available. Treatment Guidelines Discussed? Yes Attending Services: Gynecologic oncology, radiation oncology, radiology, and pathology. Presentation: 58 y.o. 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 Tumor Board Review and Discussion: Discussion: -Radiation-whole pelvic radiation therapy -systemic-immunotherapy Advisory Recommendations: Patient previously reviewed at but now reviewing her somatic/germline testing. Previously TB elected for WPRT. Today, experts agreed on WPRT. No recommendation for chemosensitization, chemo, or immunotherapy. These advisory recommendations are based on the limited information available and presented during the tumor board. This advice does not supersede or substitute for the treating physicians??? physical assessment findings and clinical judgement. I was present at the Tumor Board conference when this patient was discussed. I have reviewed and edited the Tumor Board note as needed to reflect the general discussion of our multidisciplinary conference members. Marianna Bansal MD documented in this encounter Plan of Treatment Scheduled Referrals Name Type Priority Associated Diagnoses Orde r Schedule AMB CONSULT/FOLLOW UP TUMOR BOARD Outpatient Referral Routine Endometrial cancer ([facility]) Ordered: 07/30/2024 documented as of this encounter Visit Diagnoses Diagnosis Endometrial cancer ([facility] Primary Malignant neoplasm of corpus uteri, except isthmus documented in this encounter Care Teams Department Of Sociology Chair Relationship Specialty Start Date End Date Rena Flower PA [address] [place] [address] [place] [address] PCP - General Internal Medicine - Primary Care 06/24/24 documented as of this encounter
--- OUTSIDE RECORDS SUMMARY | 2024-09-08 15:02 | XMS_ITS | Continuity of Care Document ---
Author Organization [facility] Address [address] [place] [address] Care Team Providers Care Life Agent Name Role Phone Rena Flower Primary Care Physician Encounter [facility] Date(s): 05/29/24 - 05/29/[address] [place] [address] [phone] Discharge Disposition: Home or Self Care Attending [...] Daily, # 90 tab, 3 Refill(s), Pharmacy: [id number], 162.5, cm, 04/16/24 7:42:00 [...] 0 Refill(s) Start Date: 02/03/22 Status: Ordered [place]-3 Fish Oil 1,000 mg =, Oral, BID, [...] Physician Member Role: Primary Care Physician Address: [facility] [address] Care Team Related Persons Name: RIVER OBANDO Insurance Providers Guarantor name: RANJAN OBANDO Health Plan Information #: 1 Payer: [employer] Member Number: [id number] Policy Number: NA Health Plan Information #: 2 Payer: [facility] Member Number: NA Policy Number: NA Health Plan Information #: 3 Payer: [employer] Member Number: [id number] Policy Number: NA
--- OUTSIDE RECORDS SUMMARY | 2024-09-08 15:02 | XMS_ITS | Encounter Summary ---
Author Organization [facility] Address [address] [place] [address] Care Team Providers Care Electronics Technician Name Role Phone Rena Flower Primary Care Provider + Reason for Visit * Reason Onset Date Comments Disability Paperwork 08/19/2024 Encounter Details Date Type Department Care Team (Late st Contact Info) Description 08/19/2024 Telephone [facility] OBGYN Services - [address] [phone] Marianna Bansal MD [address] [facility], [address] [place] [address] Disability Paperwork Social History Tobacco Use Types Packs/Day Years Used Date Smoking Tobacco: Former Cigarettes 0.5 10 Smokeless Tobacco: Never Comments:Started and Stopped several times Alcohol Use Standard Drinks/Week Comments Yes 4 (1 standard drink = 0.6 oz pur e alcohol) [facility] Utilities Answer Date Recorded In the past 12 months has [employer] electric, gas, oil, or water [employer] threatened to shut off services in your [...] money to get more. Never true 07/03/2024 [facility] - Inadequate Housing Answer Date Re corded What is your living situation today? I have a [facility] place to live 07/03/[address] you li ve. Do you have problems with any of the following? None of the above 07/03/2024 [facility] - Transportation Answer Date Record ed In the past 12 months, has l ack of reliable transportation kept you from medical appointments, meetings, work or from getting things needed for daily living? No 07/03/2024 [facility] - Personal Safety Answer Date [...] 07/03/2024 0:00 EST Anamaria Mejía , IFTIKHAR documented in this encounter Miscellaneous Notes * Telephone Encounter - Asiya Coombs, IFTIKHAR - 08/19/2024 1432 EST Call to pt, informed pt that FMLA and return to work form has been faxed to [employer] * Telephone Encounter - Mariia Basilio - 08/19/2024 1349 EST Patient called in today stating she needs the FMLA and return to work certification sent in to [employer]. [facility] fax #: [phone] documented in this encounter Plan of Treatment Not on file documented as of this encounter Visit Diagnoses Not on filedocumented in this encounter Care Teams Electronics Technician Relationship Specialty Start Date End Date Rena Flower PA [address] [place] [address] [place] [phone] PCP - General Internal Medicine - Primary Care 06/24/24 documented as of this encounter
--- OUTSIDE RECORDS SUMMARY | 2024-09-08 15:02 | XMS_ITS | Encounter Summary ---
Author Organization [facility] Address [address] [place] [address] Care Team Providers Care Entry Level Assistant Manager Name Role Phone Rena Flower Primary Care Provider + Encounter Details Date Type Department Care Team (Late st Contact Info) Description 07/03/2024 Documentation Visit [facility] OBGYN Services - [facility] [address] [place] [address] Asiya Coombs, RN [address] [place] [address] Social History Tobacco Use Types Packs/Day Years [...] Progress Notes * Asiya Coombs RN - 07/03/2024 1030 EST The following paperwork was filled out and faxed -FMLA faxed to [employer] -Return to Work Certification -STD faxed to [place] Forms all photocopied and placed in to be scanned. Originals given back to pt documented in this encounter Plan of Treatment Not on file documented as of this encounter Visit Diagnoses Not on filedocumented in this encounter Care Teams Entry Level Assistant Manager Relationship Specialty Start Date End Date Rena Flower PA [address] [place] [address] [place] [phone] PCP - General Internal Medicine - Primary Care 06/24/24 documented as of this encounter
--- OUTSIDE RECORDS SUMMARY | 2024-09-08 15:02 | XMS_ITS | Encounter Summary ---
Author Organization [facility] Address [address] [place] [address] Care Team Providers Care Candy Vendor Name Role Phone Rena Flower Primary Care Provider + Reason for Referral * Consult (Routine/Next Available) - Receiving Office to Obtain Authorization Specialty Diagnoses / Procedures Referred By [facility] t Referred To Contact Radiation Oncology Diagnoses Endometrial cancer ([facility]) Marianna Bansal MD [address] [place] [address] 4 [place] [address] Phone: tel: fax: [facility] Radiation Oncology - [address] [address] Phone: tel: fax: Referral ID Status Reason Start Date Expiration Date Visits Requested Visits Authorized [id number] Receiving Office to Obtain Authorization Specialty Services Required 07/18/20 24 1 1 Question Answer Scheduling Comments (optional ? describe specific scheduling needs if applicable): telemedicine prefered Reason for Request: 58 yo Endometrial adenocarcinoma, endometrioid-type, FIGO grade 3 (AJCC pT2, (sn)pN0; FIGO stage IIC. s/p RTLH BSO on 07/02/24 Reason for Visit * Reason Comments Post-OP Follow Up Post op 07/02 s/p Ra TLH/BSO, injection of ICG dye, bilateral SLND, cystoscopy; hx endometrial cancer Encounter Details Date Type Department Care Team (Late st Contact Info) Description 07/15/2024 10:45 EST Post-op Visit [facility] OBGYN Services - [address] [address] Marianna Bansal MD [address] [facility], [facility], Level [address] [place] [address] Endometrial cancer ([facility]) (Primary Dx) Social History Tobacco Use Types Packs/Day Years Used Date Smoking Tobacco: Former Cigarettes 0.5 10 Smokeless Tobacco: Never Comments:Started and Stopped several times Alcohol Use Standard Drinks/Week Comments Yes 4 (1 standard drink = 0.6 oz pur e alcohol) [facility] Utilities Answer Date Recorded In the [...] get more. Never true 07/03/2024 [facility] - Inadequate Housing Answer Date Re corded What is your living situation today? I have a [facility] place to live 07/03/[address] you li ve. Do you have problems with any of the following? None of the above 07/03/2024 [facility] - Transportation Answer Date Record ed In the past 12 months, has l ack of reliable transportation kept you from medical appointments, meetings, work or from getting things needed for daily living? No 07/03/2024 [facility] - Personal Safety Answer Date Recor ded How often does anyone, juani carroll family and friends, physically hurt you? Never 07/03/2024 How often does anyone, juani carroll family and friends, insult or talk down to you? Never 07/03/2024 How often does anyone, juani carroll family and friends, threaten you with harm? Never 07/03/2024 How often does anyone, inclu ding family and friends, scream or curse at you? Never 07/03/2024 Comments No Sex and Gender Information Value Date Recorded Sex Assigned at Female 07/02/2024 11:19 EST Legal Sex Female 18:15 EST Gender Identity Female 06/24/2024 17:31 EST Sexual Orientation Not on file documented as of this encounter Last Filed Vital Signs Vital Sign Reading Time Taken Comments Blood Pressure 126/70 07/15/2024 1141 EST Pulse - - Temperature - - Respiratory Rate - - Oxygen Saturation - - Inhaled Oxygen Concentration - - Weight 70.5 kg (155 lb 6.4 oz) 07/15/[address] Height - - Body Mass Index 28.42 07/02/2024 1209 EST documented in this encounter [...] Progress Notes * Marianna Bansal MD - 07/15/2024 1045 EST Images from the original note were not included. ID: [id number] s/p robotic TLH/BSO/SLND for a G3, stage IIC endometrioid adenocarcinoma of the uterus. SUBJECTIVE: ROS: Patient denies any fever, chills, nausea, vomiting, diarrhea, or constipation. She is tolerating a regular diet, has a good appetite, and she is eating full meals. She is voiding without difficulty and can start, stop, and empty her bladder. She is passing gas with regular bowel movements, no blood in the urine, no blood in the stool, no vaginal bleeding. No redness, purulent drainage or opening of the incisions. No excessive postop abdominal or pelvic pain. OBJECTIVE: BP 126/70 (BP Cuff Location: Left arm, BP Patient Position: Sitting) Wt 70.5 kg (155 lb 6.4 oz) BMI 28.42 kg/m?? Gen: WN, WD female in NAD Head: NC, AT Abd: soft, NT Inc: 5 trocar sites C/D/I Ext: No C/C/E Pathology: Final Diagnosis A. LYMPH NODE, RIGHT SENTINEL, EXCISION: - Three lymph nodes negative for malignancy (0/3). B. LYMPH NODE, PARA-AORTIC SENTINEL, EXCISION: - One lymph node negative for malignancy (0/1). C. LYMPH NODE, LEFT SENTINEL, EXCISION: - Two lymph nodes negative for malignancy (0/2). D. UTERUS, CERVIX, FALLOPIAN TUBES, AND OVARIES, HYSTERECTOMY AND BILATERAL SALPINGO-OOPHORECTOMY: - Endometrium: - Endometrial adenocarcinoma, endometrioid-type, FIGO [...] Cortical inclusion cysts. - Negative for malignancy. Genetics: retained MMR ASSESSMENT: 58yo s/p robotic TLH/BSO/SLND for a G3, stage IIC endometrioid adenocarcinoma of the uterus. PLAN: Postop: No active issues. Pathology: Reviewed with patient. G3, stage IIC endometrioid adenocarcinoma. Adjuvant Tx: WPRT. Data to support below. Pelvic RT alone versus chemotherapy plus VBT - The GOG-249 trial reported that pelvic RT had similar efficacy as VBT with three cycles of carboplatin/paclitaxel chemotherapy, but lesser acute toxicity. In this trial, 601 females with early-stage endometrioid endometrial cancer were randomly assigned to pelvic RT (using either three-dimensional conformal RT or IMRT alone) or to VBT followed by threecycles of paclitaxel/carboplatin chemotherapy [9,10]. Eligibility for patients with endometrioid histology was as follows: age 70 years or older with one uterine risk factor, age 50 years or older with two risk factors, or age 18 years or older with three risk factors. Uterine risk factors includedgrade 2 or 3 tumor, outer half depth of invasion, and lymphovascular invasion. At a median follow-up of 53 months, the five-year recurrence-free survival (RFS) and OS were comparable between the two arms (RFS hazard ratio [HR] 0.92, 90% CI 0.69-1.23; OS HR 1.04, 90% CI 0.71-1.52) [11]. Compared with those treated with pelvic RT, females treated with VBT plus chemotherapy had more hilton recurrences (to the pelvic and/or para-aortic nodes, 9 versus 4 percent at five years) and experienced more serious adverse events (64 versus 11 percent), including a higher rate of neurotoxicity. However, late toxicity was comparable across groups (12 and 13 percent) [9,10]. Based on these results, pelvic RT appears to be as effective as three cycles of chemotherapy plus VBT and may have less acute toxicity. Whether results of treatment would differ if the standard six cycles of chemotherapy were used instead is unanswered. ?Chemoradiation versus pelvic RT - In the PORTEC-3 trial, chemoradiation and pelvic RT were compared among patients with endometrial cancer that was stage I endometrioid and grade 3 with deep invasion or with lymphovascular space invasion, or stage II or III endometrioid, or nonendometrioid (serousor clear cell) histology. For the subset of patients with stage I/II disease (all histologies combined), differences in outcomes were slight and not statistically significant (five-year OS 84 percentfor chemoradiotherapy versus 82 percent for radiotherapy alone; 95% CI 0.5-1.4). However, chemoradiation improved outcomes in the overall trial population compared with pelvic RT, and these results are discussed in detail below, along with subset analysis of those with stage III disease. The PORTEC-3 trial enrolled 660 females with stage I, endometrioid grade 3 cancer with deep myometrial invasion or lymphovascular space invasion, or both; stage II or III endometrioid cancer; or stage I to III disease with serous or clear cell histology. Patients were randomly assigned to chemoradiation (two cycles of cisplatin with pelvic RT, followed by four cycles of carboplatin and paclitaxel) or to pelvic RT alone [17]. Radiation was primarily delivered by a four field box, but IMRT was allowed. At a median follow-up of 73 months, five- year OS was 81 percent with chemoradiation versus 76percent compared with RT alone (adjusted HR 0.70, 95% CI 0.51-0.97), and five-year failure-free survival was 77 versus 69 percent (HR 0.70, 95% CI 0.52-0.94) [18]. 4. Genetics: retained MMR. Send tumor for Caris testing. 5. F/u: Will set up Rad Onc appt here via telemed, then get her WPRT locally closer to home. F/u wth me about 1 months after she finishes WPRT. 6. Surveillance: visits q3mo for first year, then q6mo for next 4 years, then yearly. I spent a total of 40 minutes on the date of this encounter meeting with the patient and reviewing documentation/coordinating care as described in the above note. No procedures were performed at the time of the visit. I spent our time reviewing surgical findings, pathology report, rationale for WPRT vs. Vaginal RT vs. Chemo. Reviewed side effects of Radiation. Marianna Bansal MD * Marianna Bansal MD - 07/15/2024 1045 EST CC: Post-op visit Subjective: Identification: Fatoumata Lewis is a 58 y.o. 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 HPI: Fatoumata is presenting for a follow-up visit; she is in good health. She notes constipation since the procedure and has been taking colase and miralax. She asked if she was able to continue these and was told she could. We also spoke about prune juice as a supplement if she did not want to take medication for her constipation. She also has bruising on her flanks, L>R. She was advised thatthis was from the Lovenox and was told to stop taking it, which she since has. She has no new bruising since she stopped. She hasn't been sleeping well due to normally being a side/stomach sleeper and she has been nervous about this with her incisions, but the incisions looked good today and we told her she could sleep however was comfortable for her. Otherwise, she has had no vaginal bleeding, [...] in the urine, no blood in the stool, no vaginal bleeding. No weight loss, weight gain, early satiety, or abdominal bloating. No abdominal or pelvic pain and no new lumps or bumps. OBJECTIVE: Vitals: BP 126/70 (BP Cuff Location: Left arm, BP Patient Position: Sitting) Wt 70.5 kg (155 lb 6.4 oz) BMI 28.42 kg/m?? Physical Exam: Head: NC/AT Abd: Soft, NT, ND; incisions are healing well with no erythema and minor induration Remainder of physical exam deferred Assessment: Fatoumata Lewis is a 58 y.o. female with a h/o G3, endometrioid adenocarcinoma of the uterus s/pRA TLH/BSO, injection of ICG dye, bilateral SLND, and cystoscopy on 07/02/24 presenting today for post-operative follow-up and discussion of the remaining treatment plan. Plan: 1) Refer to [facility] for plan for whole pelvis radiation. Patient [place] near [place],so wondering if there is treatment center closer to her home. Plan for 5 days of radiation/wk for 5weeks. [facility], but discussed some side effects today including bladder irritation and diarrhea. 2) F/u with Dr. Bansal 1 month after radiation treatment ends. 3) Plan on beginning surveillance Q3 months after radiation treatment, and then proceeding with thetypical surveillance protocol. - Kathy Blackwood, MS4 I was present with the medical student [...] time of the visit. Marianna Bansal MD documented in this encounter Miscellaneous Notes * Addendum Note - Cody Coombs RN - 07/15/2024 1045 ESTAddended by: CODY COOMBS on: 07/18/2024 12:54 Modules accepted: Orders documented in this encounter Plan of Treatment Scheduled Referrals Name Type Priority Associated Diagnoses Order Schedule AMB CONS/FOLLOW UP RADIATION ONCOLOGY Outpatient Referral Routine/Next Available Endometrial cancer (HCC-CMS) Expected: 07/25/2024 (Approximate), Expires: 07/18/2025 documented as of this encounter Visit Diagnoses Diagnosis Endometrial cancer (HCC-CMS)- Primary Malignant neoplasm of corpus uteri, except isthmus documented in this encounter Care Teams Candy Vendor Relationship Specialty Start Date End Date Rena Flower PA [address] [place] [address] [place] [phone] PCP - General Internal Medicine - Primary Care 06/24/24 documented as of this encounter
--- OUTSIDE RECORDS SUMMARY | 2024-09-08 15:02 | XMS_ITS | Encounter Summary ---
Author Organization [facility] Address [address] [place] [address] Care Team Providers Care Crtts Name Role Phone Rena Flower Primary Care Provider + Encounter Details Date Type Department Care Team (Late st Contact Info) Description 08/05/2024 Orders Only [facility] OBGYN Services - [address] [id number] Marianna Bansal MD [address] [facility], Level [address] [place] [phone] Endometrial cancer ([facility]) Social History Tobacco Use Types Packs/Day Years Used Date Smoking Tobacco: Former Cigarettes 0.5 10 Smokeless Tobacco: Never Comments:Started and Stopped several times Alcohol Use Standard Drinks/Week Comments Yes 4 (1 standard drink = 0.6 oz pur e alcohol) [facility] Utilities Answer Date Recorded In the past 12 months has [employer], gas, oil, or water [employer] threatened to shut off services in your [...] money to get more. Never true 07/03/2024 [facility] - Inadequate Housing Answer Date Re corded What is your living situation today? I have a [facility] place to live 07/03/[address] you li ve. Do you have problems with any of the following? None of the above 07/03/2024 [facility] - Transportation Answer Date Record ed In [...] Anamaria Mejía RN documented in this encounter Plan of Treatment Not on file documented as of this encounter Procedures Procedure Name Priority Date/Time Associated Diagnosis Comments MISCELLANEOUS TEST, NON DUTTON Routine 08/05/2024 15:15 EST Endometrial cancer (HCC-CMS) documented in this encounter Results * MISCELLANEOUS TEST, NON DUTTON (08/05/2024 15:15 EST) Test Name [facility] 08/27/2024 15:28 EST [facility] Blood VENOUS BLOOD / Unknown Venipuncture / Unknown 08/05/2024 15:15 EST 08/05/2024 15:15 EST Narrative [facility] - 08/27/2024 15:28 EST See scanned/supplementary report. us Marianna Bansal MD CHEMISTRY & BLOOD GAS O RDERABLES Final Result [facility] [address] [place] [address] documented in this encounter Visit Diagnoses Diagnosis Endometrial cancer (HCC-CMS) Malignant neoplasm of corpus uteri, except isthmus documented in this encounter Care Teams Crtts Relationship Specialty Start Date End Date Rena Flower PA [address] [place] [address] [place] [phone] PCP - General Internal Medicine - Primary Care 06/24/24 documented as of this encounter
--- OUTSIDE RECORDS SUMMARY | 2024-09-08 15:02 | XMS_ITS | Encounter Summary ---
Author Organization [facility] Address [address] [place] [address] Care Team Providers Care Vending Supervisor Name Role Phone Rena Flower Primary Care Provider + Reason for Visit * Reason Comments Cancer Endometrial - teleco nsult * Consult (Routine/Next Available) - Receiving Office to Obtain Authorization Specialty Diagnoses / Procedures Referred By Everett mendiola Referred To Contact Radiation Oncology Diagnoses Endometrial cancer (HCC-CMS) Marianna Bansal MD [address] [place] [address] [address] [place] [address] Phone: tel: fax: [facility] Radiation Oncology [address] [address] Phone: tel: fax: Referral ID Status Reason Start Date Expiration Date Visits Requested Visits Authorized [id number] Receiving Office to Obtain Authorization Specialty Services Required 07/18/20 24 1 1 Encounter Details Date Type Department Care Team (Late st Contact Info) Description 07/23/2024 9:00 EST Telemedicine [facility] Radiation Oncology - [address] [address] Morales Pollard MD [address] [place] [address] [address] [place] [address] Cancer of endometrium (HCC-CMS) (Primary Dx) Social History Tobacco Use Types Packs/Day Years Used Date Smoking Tobacco: Former Cigarettes 0.5 10 Smokeless Tobacco: Never Tobacco Cessation:Counseling Given: Not Answered Comments:Started and Stopped several times Alcohol Use Standard Drinks/Week Comments Yes 4 (1 standard drink = 0.6 oz pur e alcohol) [facility] Utilities Answer Date Recorded In [...] money to get more. Never true 07/03/2024 [facility] - Inadequate Housing Answer Date Re corded What is your living situation today? I have a [facility] place to live 07/03/[address] you li ve. Do you have problems with any of the following? None of the above 07/03/2024 [facility] - Transportation Answer Date Record ed In the past 12 months, has l ack of reliable transportation kept you from medical appointments, meetings, work or from getting things needed for daily living? No 07/03/2024 [facility] - Personal Safety Answer Date [...] De Santiago RN documented in this encounter Consult Notes * Morales Pollard MD - 07/23/2024 0900 EST DIVISION OF RADIATION ONCOLOGY-Consult phone only DOS: 07/23/2024 DIAGNOSIS Cancer Staging Endometrial cancer ([facility]) Staging form: Corpus Uteri - Carcinoma And Carcinosarcoma, AJCC 8th Edition - Pathologic: Stage II (pT2, pN0, cM0) - Signed by Morales Pollard MD on 07/23/2024 HISTOLOGY:Endometrial Adenocarcinoma Grade 3 LVSI: Present-extensive/substantial greater than or equal to 5 vessel involvement PRIMARY CARE: Rena Flower [address] [place] [address] [place] [phone] REFERRING: Marianna Bansal MD [address] [place] [address], [facility] [address] [place] [address] IMPRESSION: Patient with grade 3, stage II endometrial cancer. She does not appear to have any contraindications to whole pelvic radiation and given the extent of disease along with significant lymphovascular invasion I do recommend whole pelvic radiation. Given that she had cervical involvement I also recommend vaginal cuff brachytherapy boost. We have had discussion in tumor board about the potential for adjuvant chemotherapy, however it is not recommended for her at this time. I discussed while pelvic radiation over approximately 5 weeks. Short term side effects include fatigue, diarrhea, bladder irritation, mild nausea with poor appetite. Possible late effects include diarrhea, small bowel obstruction, bladder contracture, pelvic floor dysfunction resulting in incontinence, scarring of the vagina with possible sexual dysfunction, lymphedema of the legs and pelvic fracture. Vaginal cuff radiation would be 2-3 treatments. The side effects would be similar to and overlapping with the external beam side effects with bladder and rectal irritation and sexual dysfunction fromvaginal scarring. 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 We also would start this anywhere between 4 to 6 weeks after surgery up to starting 12 weeks after surgery. PLAN: The patient's questions appeared to be answered to her apparent satisfaction. She would like to have external beam radiation closer to home in [facility]. I would like to have the brachytherapy portion here at [facility]. I will make referral to [facility] and then will coordinate care with that team. HISTORY OF PRESENT ILLNESS: Patient is a 58 y.o. woman who presented with vaginal bleeding. Biopsy showed endometrial cancer. Additional workup includes CT of the chest 06/11/2024 which showed no specific finding of metastasis however there were very small indeterminate solid pulmonary nodule and follow-up CT in 6 months is re commended. CT of the abdomen pelvis showed a mass centered on the endometrium measuring 7.6 cm in greatest dimension. And it extended from the fundus to the cervix and did not appear to extend beyondthe parametrium. Borderline enlarged left external iliac lymph node measuring 0.9 cm was also notedin retroperitoneal lymph nodes were not enlarged. She underwent hysterectomy on 07/02/2024. She tolerated this well. Final pathology as described above. She is referred here for discussion of possible adjuvant radiation therapy. She does not haveproblems with pain or burning with urination. She does not have diarrhea at baseline, and in general triston little bit constipated. She has been recuperating well from her hysterectomy. She has mild constipation managed with Colaceand MiraLAX. She is also having fatigue. Prior history of radiation therapy? No Patient has defibrillator, pacemaker or other implant with electronics? No Past medical history, past surgical history, medications, allergies and social history have all been reviewed. 07/23/2024 9:14 Pain Score (from Vitals) Initial score 0 Final score 0 DISCLAIMER: Performance status is noted here as it is an ACR accreditation documentation requirement. Please Do Not interpret this to be my assessment of the patient's fitness for treatment, or my opinion of potential tolerance. This is for accreditation purposes only. ECOG performance Status: (0) Fully active, able to carry on all predisease performance without restriction, at least prior to hysterectomy. EXAM: Exam was deferred. That the service was provided using telemedicine: Yes- Via Phone Visit The location of the patient: Home (where patient lives) The location of the physician: [facility] office The names of all persons participating in the service and their role in the encounter: Myself, patient, and Gabby, the patients friend. The concept of ???Telemedicine?? has been described to the patient. Patient has been informed of the anticipated benefits and possible risks. Patient understands the information provided regarding telemedicine, has had the opportunity to ask questions about this information, and all questions havebeen answered to patient???s satisfaction. Patient gives verbal consent for the use of telemedicinein his/her medical care and authorizes the transmission of any relevant medical information to providers and their staff involved in patient???s medical or mental health care. I spent a total of 45 minutes on the date of this encounter meeting with the patient and reviewing documentation/coordinating care as described in the above note. No procedures were performed at the time of the visit. Morales Pollard MD documented in this encounter Plan of Treatment Not on file documented as of this encounter Visit Diagnoses Diagnosis Cancer of endometrium ([facility])- Primary Malignant neoplasm of corpus uteri, except isthmus documented in this encounter Care Teams Vending Supervisor Relationship Specialty Start Date End Date Rena Flower PA [address] [place] [address] [place] [phone] PCP - General Internal Medicine - Primary Care 06/24/24 documented as of this encounter
--- OUTSIDE RECORDS SUMMARY | 2024-09-08 15:02 | XMS_ITS | Clinical Summary ---
Author Organization [facility] Address [address] [place] [address] Care Team Providers Care Manager Area Name Role Phone Rena Flower Primary Care Provider + Allergies No known active allergies Medications citalopram (CELEXA) 20 mg tablet Take 0.5 Tablets by mouth daily. Active magnesium oxide (MAG-OX) 400 mg (241.3 mg magnesium) tablet Take 1 Tablet by mouth daily. Active omega 1-oeo-jfx-fish oil 350 mg-235 mg- 90 mg-597 mg capsule,delayed release(DR/EC) Take by mouth. Active VITAMIN B COMPLEX-100 ORAL Take 1 Tablet by mouth daily. 4 Active cholecalciferol , Vitamin D3, 25 mcg [...] hours as needed for Pain. 4 Active oxyCODONE (ROXICODONE) 5 mg immediate release tablet Take 1 Tablet by mouth every 4 hours as needed for Pain. Daily Max: 30 mg 5 Tablet 4 Active Additional Information Patient not taking.Reported on 08/05/2024 Active Problems Problem Noted Date Diagnosed Date Endometrial cancer ([facility]) 05/27/2024 Cancer Staging:Pathologic:Stage II(pT2, pN0, cM0) - Signed by Morales Pollard MD on 07/23/2024 Encounters Date Type Department Care Team Description 09/05/2024 Telephone [facility] OBGYN Services [address] [address] Asiya Coombs, RN Billing Question 09/04/2024 Telephone [facility] [address] [address] Asiya Coombs, RN Coordination Of Care 08/19/2024 Telephone [facility] [address] [address] Marianna Bansal MD Disability Paperwork 08/15/2024 Telephone [facility] [address] [phone] Marianna Bansal MD Advice Only 08/14/2024 Telephone [facility] Hematology & Oncology [address] [address] Bobbi Weaver MSW Social Work (Outreach call to pt/) 08/11/2024 Telephone [facility] [address] [phone] Asiya Coombs, RN Coordination Of Care 08/07/2024 8:15 EST Tumor Board [facility] Hematology & Oncology [address] [phone] Endometrial cancer ([facility]) (Primary Dx) 08/05/2024 9:00 EST Office Visit [facility] [address] [phone] Marianna Bansal MD Endometrial cancer ([facility]) (Primary Dx) 08/05/2024 Orders Only [facility] [address] [phone] Marianna Bansal MD Endometrial cancer (HCC-CMS) 08/04/2024 Telephone [facility] [address] [phone] Marianna Bansal MD Appointment Related 07/30/2024 Orders Only [facility] Hematology & Oncology [address] [phone] Blanka Bhagat RN Endometrial cancer (HCC-CMS) (Primary Dx) 07/28/2024 Telephone [facility] OBGYN [address] [phone] Marianna Bansal MD Appointment Related 07/24/2024 7:30 EST Tumor Board [facility] Hematology & Oncology [address] [phone] Endometrial cancer (HCC-CMS) (Primary Dx) 07/23/2024 9:00 EST Telemedicine [facility] Radiation Oncology [address] [phone] Morales Pollard MD Cancer of endometrium (HCC-CMS) (Primary Dx) 07/15/2024 10:45 EST Post-op Visit [address] [phone] Marianna Bansal MD Endometrial cancer (HCC-CMS) (Primary Dx) 07/15/2024 6:39 EST - 07/15/2024 23:59 EST Hospital Encounter [facility] Radiology [address] [phone] Endometrial cancer (HCC-CMS); Malignant neoplasm of endometrium (HCC-CMS) Discharge Disposition: Home or Self Care 07/14/2024 Documentation Visit [facility] OBGYN [address] [phone] Asiya Coombs RN 07/09/2024 Orders Only [facility] Hematology & Oncology [address] [phone] Blanka Bhagat, IFTIKHAR Endometrial cancer ([facility]) (Primary Dx) 07/08/2024 Telephone [facility] OBGYN Services - [address] [phone] Marianna Bansal MD Medication Reaction; Post-op Problem 07/04/2024 Telephone [facility] OBGYN Services - [address] [address] Asiya Coombs RN Post-OP Follow Up 07/03/2024 Documentation Visit [facility] OBGYN Services - [facility] [address] [place] [address] Asiya Coombs RN 07/02/2024 15:[address] [facility] OR [address] [place] [phone] Jett Heller MD 07/02/2024 13:45 EST - 07/02/2024 17:[address] [facility] OR [address] [place] [address] Marianna Bansal MD Robotic assisted total laparoscopic hysterectomy, bilateral salpingo-oophorecto my [[id number] (CPT??)] 07/02/2024 11:23 EST - 07/03/2024 13:45 EST Hospital Encounter [facility] Neurosurgery Unit [address] [place] [address] Marianna Bansal MD Discharge Disposition: Home or Self Care 07/01/2024 Telephone [facility] OBGYN Services - [facility] [address] [place] [address] Marianna Bansal MD Confirmation 06/25/2024 9:50 EST - 06/25/2024 10:09 EST Hospital Encounter [facility] Pre-Surgical Testing [address] [place] [address] Discharge Disposition: Home or Self Care 06/13/2024 Telephone [facility] OBGYN Services - [facility] [address] [place] [address] Marianna Bansal MD Appointment Related; Other (Image Push) 06/11/2024 - 06/11/2024 23:59 EDT Hospital Encounter [facility] [place] [place] Discharge Disposition: Home or Self Care from Last 3 Months Immunizations Name Administration Dates Next Due Influenza Vaccine Trivalent (IIV3) Split Virus (AFLURIA) PF 0.5 mL IM (36 mos+) 07/03/2024 Surgical History Surgery Date Site/Laterality Comments HIEN AND BSO Bilateral Medical History Medical History Date Comments Exercise involving walking walks daily, no issues with stairs Depression 06/25/24 controll ed on med Claustrophobia Panic attacks Back pain 06/25/24 chronic low back Rash 06/25/24 psoriasi s on scalp and arm pits, no meds Cancer (HCC-CMS) 06/25/24 endomet rial cancer, hysterectomy scheduled Family History Medical History Relation Comments Cancer Father Depression Father Heart Disease Father High Blood Pressure Father Cancer Maternal Grandfather Cancer Paternal Grandmother Cancer Sister Depression Sister High Blood Pressure Sister Relation Status Comments Father Maternal Grandfather Paternal Grandmother Sister Social History Tobacco Use Types Packs/Day Years Used Date Smoking Tobacco: Former Cigarettes 0.5 10 Smokeless Tobacco: Never Tobacco Cessation:Counseling Given: Not Answered Comments:Started and Stopped several times Alcohol Use Standard Drinks/Week Comments Yes 4 (1 standard drink = 0.6 oz pur e alcohol) [facility] Utilities Answer Date Recorded In the past 12 months has [employer], gas, oil, or water [employer] threatened to shut off services in your [...] money to get more. Never true 07/03/2024 [facility] - Inadequate Housing Answer Date Re corded What is your living situation today? I have a [facility] [place] place to live 07/03/[address] you li ve. Do you have problems with any of the following? None of the above 07/03/2024 [facility] - Transportation Answer Date Record ed In the past 12 months, has l ack of reliable transportation kept you from medical appointments, meetings, work or from getting things needed for daily living? No 07/03/2024 [facility] - Personal Safety Answer Date [...] 17:31 EST Sexual Orientation Not on file Obstetrics History Last Filed Vital Signs Vital Sign Reading [...] Body Mass Index 28.35 07/02/2024 1209 EST Plan of Treatment Health Maintenance Due Date Last Done Comments Hepatitis C Screen 1965 Hepatitis B Vaccine (1 of 3 - 19+ 3-dose series) 1984 COVID-19 Vaccine ( season) 2024, 10/18/2020 Procedures Procedure Name Priority Date/Time Associated Diagnosis Comments MISCELLANEOUS TEST, NON DUTTON Routine 08/05/2024 15:15 EST Endometrial cancer (HCC-CMS) TUMOR BOARD RADIOLOGY CONSULT ACID PURIFIER Routine 07/15/2024 6:45 EST Endometrial cancer (HCC-CMS) CT SUBSPECIALTY RADIOLOGY CONSULT CHEST Routine 07/15/2024 6:43 EST Endometrial cancer (HCC-CMS) Malignant neoplasm of endometrium (HCC-CMS) TUMOR BOARD RADIOLOGY CONSULT ACID PURIFIER Routine 07/15/2024 6:41 EST Endometrial cancer (HCC-CMS) CT SUBSPECIALTY RADIOLOGY CONSULT BODY Routine 07/15/2024 6:39 EST Endometrial cancer (HCC-CMS) Malignant neoplasm of endometrium (HCC-CMS) COMPLETE BLOOD COUNT Routine 07/03/2024 6:56 EST SCREENING GLUCOSE Routine 07/02/2024 20: 32 EST NON ACID PURIFIER/FNA CYTOLOGY Routine 07/02/2024 16:29 EST SURGICAL PATHOLOGY [...] Name [facility] 08/27/2024 15:28 EST [facility] Blood VENOUS BLOOD / Unknown Venipuncture / Unknown 08/05/2024 15:15 EST 08/05/2024 15:15 EST Narrative [facility] - 08/27/2024 15:28 EST See scanned/supplementary report. Marianna Bansal MD CHEMISTRY & BLOOD GAS O RDERABLES Final Result [facility] [address] [place], [place] [phone] * TUMOR BOARD RADIOLOGY CONSULT ACID PURIFIER (07/15/2024 6:45 EST) Anatomical Region Laterality Modality Other 08/19/2024 13:1 1 EST Narrative 08/19/2024 13:11 EST TUMOR BOARD IMAGING REVIEW Tumor board: Gynecology oncology Date of tumor board: 07/24/2024 Indication: Endometrial cancer. ?? Imaging studies reviewed: CT of the chest with contrast from [facility] 06/11/2024 Comments: A focused interpretation for the purpose of tumor board/MDC discussion was performed for the imaging exams listed above. [id number] Resulting Agency Comment [id number] Procedure Note Jimenez Perez MD - 08/19/2024 TUMOR BOARD IMAGING REVIEW Tumor board: Gynecology oncology Date of tumor board: 07/24/2024 Indication: Endometrial cancer. Imaging studies reviewed: CT of the chest with contrast from [facility] 06/11/2024 Comments: A focused interpretation for the purpose of tumor board/MDC discussion wasperformed for the imaging exams listed above. [id number] us Marianna Bansal MD IMG CT ORDERABLES [...] in 6 months or per clinical protocol. [id number] Narrative 07/15/2024 10:32 EST 07/15/2024 6:43 AM [...] in the bones. ?? Resulting Agency Comment [id number] Procedure Note Win Tatum MD - 07/15/2024 [...] in 6 months or per clinical protocol. [id number] Marianna Bansal MD [facility] CT ORDERABLES Final Result * TUMOR BOARD RADIOLOGY CONSULT ACID PURIFIER (07/15/2024 6:41 EST) Anatomical Region Laterality Modality Other 08/19/2024 13:1 1 EST Narrative 08/19/2024 13:11 EST TUMOR BOARD IMAGING REVIEW Tumor board: Gynecology oncology Date of tumor board: 07/24/2024 Indication: Endometrial cancer. ?? Imaging studies reviewed: CT abdomen/pelvis with contrast from [facility] 05/29/2024 Comments: A focused interpretation for the purpose of tumor board/MDC discussion was performed for the imaging exams listed above. [id number] Resulting Agency Comment [id number] Procedure Note Jimenez Perez MD - 08/19/2024 TUMOR BOARD IMAGING REVIEW Tumor board: Gynecology oncology Date of tumor board: 07/24/2024 Indication: Endometrial cancer. Imaging studies reviewed: CT abdomen/pelvis with contrast from [facility] 05/29/2024 Comments: A focused interpretation for the purpose of tumor board/MDC discussion wasperformed for the imaging exams listed above. [id number] Marianna Bansal MD [facility] CT ORDERABLES Final Result * CT SUBSPECIALTY [...] represent hilton spread of malignancy. 3. ??Atherosclerosis. [id number] Narrative 07/15/2024 17:[address] SUBSPECIALTY RADIOLOGY CONSULT BODY ??07/15/2024 6:39 AM Signs and Symptoms/Comments: TUMOR BOARD REVIEW Technique: This is a secondary interpretation of CT abdomen and pelvis with IV contrast images obtained at [facility] on 05/29/2024, performed at the [...] in the lower thoracic and lumbar spine. Cleat Feeder: No additional findings. Resulting Agency Comment [id number] Procedure Note Janice Moreno MD - 07/15/2024 CT SUBSPECIALTY RADIOLOGY CONSULT BODY 07/15/2024 6:39 AM Signs and Symptoms/Comments: TUMOR BOARD REVIEW Technique: This is a secondary interpretation of CT abdomen and pelviswith IV contrast images obtained at [facility] on 05/29/2024,performed at the request [...] present in the lower thoracic andlumbar spine. Cleat Feeder: No additional findings. IMPRESSION 1. Heterogeneously hypoenhancing mass centered within the uterusconsistent with pathology proven endometrial cancer. 2. Borderline enlarged left external iliac lymph nodes measure up to 0.9cm short axis. These may be reactive or could represent hilton spread ofmalignancy. 3. Atherosclerosis. [id number] us Marianna Bansal MD IMG CT ORDERABLES Final Result * (ABNORMAL) COMPLETE BLOOD COUNT (07/03/2024 6:56 EST) Only the most recent of2 resultswithin the time period is included. WBC 7.41 4.00 - 12.40 K/cmm 07/03/2024 7:22 [facility] RBC 3.76(L) 3.86 - 5.04 M/cmm 07/03/2024 7:22 [facility] Hemoglobin 12.4 11.6 - 15.2 g/dL 07/03/2024 7:22 [facility] HCT 35.8 34.9 - 44.4 % 07/03/2024 7:22 [facility] MCV 95 81 - 98 fL 07/03/2024 7:22 [facility] MCH 33.0 26.7 - 33.3 pg 07/03/2024 7:22 [facility] MCHC 34.6 32.1 - 35.9 g/dL 07/03/2024 7:22 [facility] RDW-CV 13.2 <14.7 % 07/03/2024 7:22 [facility] RDW-SD 46.0 <50.4 fl 07/03/2024 7:22 [facility] PLT 232 141 - 377 K/cmm 07/03/2024 7:22 [facility] MPV 10.2 9.5 - 12.7 fL 07/03/2024 7:22 [facility] Blood VENOUS BLOOD / Unknown Venipuncture / Unknown 07/03/2024 6:56 EST 07/03/2024 7:14 EST us Lidia Jc MD HEMATOLOGY & PF4 ORDERABLES Joana l Result Performing Organization Address City/[facility]/ZIP Co de Phone Number [facility] [address] [place] [address] * (ABNORMAL) SCREENING GLUCOSE (07/02/2024 20:32 EST) Glucose, Screening 140(H) 70 - 100 mg/dL 07/02/2024 21:08 [facility] Blood VENOUS BLOOD / Unknown Venipuncture / Unknown 07/02/2024 20:32 EST 07/02/2024 20:39 EST us Lidia Jc MD CHEMISTRY & BLOOD GAS ORDERABLES Final Result Performing Organization Address City/[facility]/ZIP Co de Phone Number [facility] [address] [place] [address] * NON ACID PURIFIER/FNA CYTOLOGY (07/02/2024 16:29 EST) Note to Patient The following pathology results have been interpreted by your pathologist and may be available to you before your health provider has had the opportunity to review them. Please allow time for your provider to receive these results and explore management options, if applicable. 07/03/2024 16:32 [facility] Final Diagnosis A. PERITONEAL WASHINGS, CUL DE SAC, CYTOLOGIC EVALUATION: - Negative for malignant cells. 07/03/2024 16:32 [facility] Attestation There was significant resident/yordy w involvement in the diagnostic evaluation of this case. By the signature below, the attending physician certifies that they have personally conducted a gross and/or microscopic examination of the described specimens and rendered or confirmed the above diagnosis. 07/03/2024 16:32 [facility] at 1632 Clinical History Endometrial cancer (HCC-CMS) 07/03/2024 16:32 [facility] Gross Description A. 200cc's of clear colorless fluid were received and processed by selective cellular enhancement technique. 07/03/2024 16:32 [facility] Resident/Yordy w: Billie Curry DO 07/03/2024 16:32 [facility] Performing Lab [facility] 07/03/2024 16:32 [facility] Scanned Images 07/03/2024 16:32 [facility] Wash PERITONEAL FLUID / Unknown 07/02/2024 16:29 EST 07/03/2024 6:50 EST us Marianna Bansal MD PATHOLOGY ORDERABLES Fi nal Result [facility] [address] [place] [phone] * SURGICAL PATHOLOGY (07/02/2024 16:29 EST) Ancillary Studies Addendum At the request of Dr. Marianna Bansal, a block from [id number] (D3) was sent to [facility] for testing. For [facility] results, please see scanned report in EPIC. 07/29/2024 16:15 [facility] Addendum electronically signed by Viri Bradley MD on 07/29/2024 at 1615 Note to Patient The following pathology results have been interpreted by your pathologist and may be available to you before your health provider has had the opportunity to review them. Please allow time for your provider to receive these results and explore management options, if applicable. 07/29/2024 16:15 [facility] Final Diagnosis A. LYMPH NODE, [...] cysts. - Negative for malignancy. 07/29/2024 16:15 [facility] Diagnosis Comment Levels and pancytokeratin stains (AE1-AE3, [employer]) performed on all blocks of sentinel lymph nodes (A1-A3, B1-B3, C1-C3) are negative for carcinoma. Immunohistochemica l staining for mismatch repair (MMR) proteins for [employer] Screening has been performed on a prior specimen which showed retained expression of all 4 MMR proteins. See [id number] for details. Immunoperoxidase stains were performed on [...] performance characteristics have been determined by [facility] and/or by the referring laboratory. [...] high complexity clinical laboratory testing. 07/29/2024 16:15 [facility] Attestation There was significant resident/fellow involvement in the diagnostic evaluation of this case. By the signature below, the attending physician certifies that they have personally conducted a gross and/or microscopic examination of the described specimens and rendered or confirmed the above diagnosis. 07/29/2024 16:15 [facility] at 1259 Synoptic ENDOMETRIUM ENDOMETRIUM [...] Nodes Examined: ?6 ? Number of Pelvic Alexis Nodes Examined: ?6 ? Total Number of Para-aortic Nodes Examined: ?1 ? Number of Para-aortic Alexis Nodes Examined: ?1 pTNM CLASSIFICATION (AJCC 8th [...] STAGE ?? FIGO Stage: ?IIC 07/29/2024 16:15 [facility] Clinical History Endometrial cancer (HCC-CMS) 07/29/2024 16:15 [facility] Gross Description A. Received in [...] cut surface with a pinpoint lumen throughout. Church History Professor sections are submitted as follows: BLOCK SPRING [...] BELGICA JACOBSON MD 07/03/2024 11:27 07/29/2024 16:15 [facility] Resident/Yordy w: Belgica Jacobson MD Raziel, Cassandra, MD 07/29/2024 16:15 [facility] Performing Lab [facility] 16:15 [facility] Scanned Images 07/29/2024 16:15 [facility] Tissue SENTINEL LYMPH NODE / [...] PATHOLOGY ORDERABLES Ed ited Result - Final Performing Organization Address [facility] Co de Phone Number [facility] [address] [place] [address] * RI AN ELECTIVE ENDOTRACHEAL AIRWAY (07/02/2024 15:31 EST) Narrative [facility] POINT [facility] CARE - 07/02/2024 15:31 [...] Heller MD ANESTHESIA ORDERABLES Joana l Result Performing Organization Address City/[facility] Co de Phone Number [facility] POINT [facility] * TYPE AND SCREEN (07/02/2024 12:33 EST) ABO B 07/02/2024 13:50 EST [facility] Rh Factor Positive 07/02/2024 13:50 EST [facility] Antibody Screen Negative 07/02/2024 13:50 EST [facility] Specimen Expires: 07/05/2024 @ 23:59 07/02/2024 13:50 EST [facility] Blood VENOUS BLOOD / Unknown Venipuncture / Unknown 07/02/2024 12:33 EST 07/02/2024 12:41 EST Lidia Jc MD BLOOD BANK TESTS Edited Result - Final [facility] [address] [facility] [place] [address] from Last 3 Months Insurance [employer] [address] [phone] [address] Advance Directives For more information, please contact: [phone] * Full Code (Latest Code Status on File) Date Activated Date Inactivated Comments 07/02/2024 12:04 07/03/2024 15:45 Question Answer Comments When the patient has NO PULSE: Full Code / CPR Who Made the Decision? Default/Not Discussed Care Teams Manager Area Relationship Specialty Start Date End Date Rena Flower PA [address] [place] [address] [place] [id number] PCP - General Internal Medicine - Primary Care 06/24/24
--- OUTSIDE RECORDS SUMMARY | 2024-09-08 15:02 | XMS_ITS | Continuity of Care Document ---
Author Organization [facility] Address [address] [place] [address] Care Team Providers Care Sample Steamer Name Role Phone Rena Flower Primary Care Physician [facility] 05/09/24 - 05/09/[address] [phone] [place] Encounter Diagnosis Abnormal uterine bleeding (AUB)(Discharge Diagnosis) - 05/09/24 Discharge Disposition: Home or Self Care Attending [...] Daily, # 90 tab, 3 Refill(s), Pharmacy: [id number], 162.5, cm, 04/16/24 7:42:00 EDT, [...] 0 Refill(s) Start Date: 02/03/22 Status: Ordered [place]-3 Fish Oil 1,000 mg =, Oral, BID, [...] Physician Member Role: Primary Care Physician Address: [facility] [place] [address]- Care Team Related Persons Name: RIVER OBANDO Insurance Providers Guarantor name: RANJAN OBANDO Health Plan Information #: 1 Payer: [employer] Member Number: [id number] Policy Number: NA Health Plan Information #: 2 Payer: [employer] Member Number: [id number] Policy Number: NA Health Plan Information #: 3 Payer: [facility] Member Number: NA Policy Number: NA
--- OUTSIDE RECORDS SUMMARY | 2024-09-08 15:03 | XMS_ITS | Encounter Summary ---
Author Organization [facility] Address [address] [place] [address] Care Team Providers Care Stereo Operator Name Role Phone Rena Flower Primary Care Provider + Encounter Details Date Type Department Care Team (Latest Contact Info) Description 06/25/2024 9:50 EST - 06/25/2024 10:09 EST Hospital Encounter [facility] Pre-Surgical Testing [address], [place] [id number] Discharge Disposition: Home or Self Care Social History Tobacco Use Types Packs/Day Years Used Date Smoking Tobacco: Former Cigarettes 0.5 10 Smokeless Tobacco: Never Comments:Started and Stopped several times Alcohol Use Standard Drinks/Week Comments Yes 4 (1 standard drink = 0.6 oz pur e alcohol) Comments No Sex and Gender Information Value Date Recorded Sex Assigned at Female 07/02/2024 11:19 EST Legal Sex Female 18:15 EST Gender Identity Female 06/24/2024 17:31 EST Sexual Orientation Not on file documented as of this encounter Last Filed Vital Signs Vital Sign Reading Time Taken Comments Blood Pressure - - Pulse - - Temperature - - Respiratory Rate - - Oxygen Saturation - - Inhaled Oxygen Concentration - - Weight 70.3 kg (155 lb) 06/25/2024 0953 EST Height 158.8 cm (5' 2.5) 06/25/2024 0953 EST Body Mass Index 27.9 06/25/2024 0953 EST documented in this encounter Medications at Time [...] Take 1 Tablet by mouth daily. omega 1-ykj-tbr-fish oil 350 mg-235 mg- 90 mg-597 mg capsule,delayed release(DR/EC) Take by mouth. oxyCODONE (ROXICODONE) 5 mg immediate release tablet Take 1 Tablet by mouth every 4 hours as needed for Pain. Daily Max: 30 mg 5 Tablet 07/03/2024 VITAMIN B COMPLEX-100 ORAL Take 1 Tablet by mouth daily. 04/16/2024 acetaminophen (TYLENOL) 500 mg tablet Take 1 Tablet by mouth every 6 hours as needed for Pain. 07/03/2024 enoxaparin (LOVENOX) 40 mg/0.4 mL injection Inject 40 mg into the skin daily for 7 days. 3 mL 07/03/2024 07/10/2024 documented as of this encounter Discharge Disposition Disposition Code Departure Means Destination Home or Self [facility] documented in this encounter OR Notes * Preprocedure Instructions - Jessica Johnson RN - 06/25/2024 0950 EST Fatoumata Lewis has been instructed as follows regarding medication administration for the day of the scheduled procedure. Date of Surgery: 07/02/24 Instructions for Taking Medications Day of Surgery Medication Dose and frequency Last Dose Hold Day of Surgery Take Day of Surgery cholecalciferol, Vitamin D3, 25 mcg (1,000 unit) tablet Take 1 Tablet by mouth daily. 06/25/24 X citalopram (CELEXA) 20 mg tablet Take 1 Tablet by mouth daily. X magnesium oxide (MAG-OX) 400 mg (241.3 mg magnesium) tablet Take 1 Tablet by mouth daily. 06/25/24 X omega 5-mbx-jyd-fish oil 350 mg-235 mg- 90 mg-597 mg capsule,delayed release(DR/EC) Take by mouth. 06/25/24 X VITAMIN B COMPLEX-100 ORAL Take 1 Tablet by mouth daily. 06/25/24 X Please call the PAT department at [phone] if you start any new medications or if you are taking any medications that were not reported at the time of your call Instructions: Call your surgeon prior to surgery date IF: You become ill. You have any new skin problems near the area where your surgery will be, such as a rash, blister, or infection. Your surgeon may have given you specific instructions to prepare for surgery. Please follow surgeonspecific instructions & call surgeon's office with any questions. Fasting: Follow the eating and drinking instructions below unless otherwise instructed by your surgeon. No solid food or liquids containing fats, including milk*, after midnight. On the day of your procedure, you should only have clear liquids (see ???Acceptable Liquids?? listed below). Stop drinking 2 hours before your arrival time to the hospital. Acceptable Liquids: DO NOT ADD THICKENERS TO ANY LIQUIDS Water Clear apple juice Clear white grape juice Clear sports drinks / Pedialyte (no protein or coconut water based sports drinks) *Children under 3 years of age: Water- up to 4 hours before surgical time Clear apple juice- up to 4 hours before surgical time Clear white grape juice- up to 4 hours before surgical time Clear sports drinks / Pedialyte- up to 4 hours before surgical time Breast milk - up to 4 hours before surgical time - *do not add cereals Non-human milk or formula - up to 6 hours before surgical time *do not add cereal or use formula with cereal already added Shower: with an ANTIBACTERIAL SOAP (or scrub sponge if provided by your surgeon's office) the nightbefore surgery and the morning of surgery. Do not shave your surgical site for 3 days prior to surgery. After your morning shower avoid using creams, lotion, powders, deodorant, makeup, hairspray, perfumes or colognes. Remove all fingernail chinese, makeup, jewelery and body piercings before surgery. Ride Home: We require you have a responsible adult to drive you home after surgery or to accompany you if getting home via Taxi or Bus. If your ride cannot wait for you at the hospital, they still need to come in to pick you up, to assist with medication supervisor picking crew from pharmacy, review of discharge instructions and surgical consult. We ask that your ride stay within 15 minutes of the hospital for supervisor picking crew. Medications: Take as directed above with a sip of water on day of surgery. (If a medication must betaken with something other than clear liquids or sips of water, please call the PreAdmission Testing Clinic at for guidance.) Bring a list of your medications to the hospital. Please list when you last took each of medication. Leave actual medications at home unless told otherwise. CPAP/BiPAP: Bring your cleaned CPAP/BiPAP machine into preop on the day of your surgery. Be sure toempty the water chamber prior to transport Smoking: Stop smoking tobacco and marijuana prior to surgery as much as possible, avoiding it for aminimum of 24 hours prior to surgery. Legal Guardianship: BRING Proof of Guardianship on Day of Surgery. Legal Guardian must be availableon the Day of Surgery by Telephone if not physically present on the Day of Surgery. Clothing: Wear loose fitting and comfortable clothing. For arm and hand surgery wear a zip up or button up shirt with short sleeves. For eye surgery, do not wear a shirt that pulls over the head unless it has a wide neck opening. Valuables: Do not bring any on day of surgery, except money you may need for you hospital co-pay orto purchase any prescriptions. Visitation: Typically, two visitors are allowed in the Preop and Recovery areas. Each area of the hospital may have different visitation guidelines. Contact Information: Prior to Day of Surgery, call Pre-Admission Testing Clinic: [phone]. PAT toll Free Number . For Day of Surgery: [facility] Main [place]: [phone] [facility]; [phone]. Visit our website for more information: [email or web address] Advance Directives: You can get the forms in a doctor's office, a hospital, a law office, a state or local office for the aging, a senior center, a penitentiary, or online. For more information, including forms for your state, see the [employer] website (www.[employer].org/planning/advance-directives/). If not already done, please bring a signed copy of your Advance Directive with you to the hospital so that it may scanned into your electronic health record. documented in this encounter Plan of Treatment Not on file documented as of this encounter Visit Diagnoses Not on filedocumented in this encounter Care Teams Stereo Operator Relationship Specialty Start Date End Date Rena Flower PA [address] [place] [address] [place] [id number] PCP - General Internal Medicine - Primary Care 06/24/24 documented as of this encounter
--- OUTSIDE RECORDS SUMMARY | 2024-09-08 15:03 | XMS_ITS | Encounter Summary ---
Author Organization [facility] Address [address] [place] [address] Care Team Providers Care Firmware Architect Name Role Phone Rena Flower Primary Care Provider + Reason for Visit * Auth/Cert (Routine) Specialty Diagnoses / Procedures Referred By Everett mendiola Referred To Contact Diagnoses Endometrial cancer ([facility]) Procedures KS LAPS TOTAL HYSTERECT 250 GM/< W/RMVL TUBE/OVARY KS INTRAOP SENTINEL LYMPH NODE ID W/DYE INJECTION KS LAPS BI TOT PEL LMPHADEC & OSBALDO-AORTIC LYMPH BX 1 KS LAPAROSCOPY TOT HYSTERECTOMY >250 G W/TUBE/OVAR KS CYSTOURETHROSCOPY Robotic assisted total laparoscopic hysterectomy, bilateral salpingo-oophorectomy injection of ICG dye bilateral sentinel lymph node dissection. Referral ID Status Reason Start Date Expiration Date Visits Re quested Visits Authorized [id number] 1 1 Encounter Details Date Type Department Care Team (Late st Contact Info) Description 07/02/2024 13:45 EST - 07/02/2024 17:30 EST Surgery [facility] OR [address] [place] [address] [id number] Marianna Bansal MD [address] [place] [address], [facility], [address] [place] [address] Robotic assisted total laparoscopic hysterectomy, bilateral salpingo-oophorectomy [11476 (CPT??)] Surgery Details Date/Time Status Location OR Service Patient Class Case Class Case Type Trauma Case? 07/02/2024 1345 Posted [facility] OR MOR 17 Gynecology Oncology Extended Stay H - Elective Panel 1 Procedure LRB Anes Op Region Wound Class Comments Robotic assisted total laparoscopic hysterectomy, bilateral salpingo-oophorectomy Bilateral General Abdomen Class I/ Clean injection of ICG dye N/A General Abdomen N/A bilateral sentinel lymph node dissection. Bilateral General Abdomen Class II/ Clean Contaminated CYSTOSCOPY, RIGID N/A Bladder Class I I/ Clean Contaminated Surgeon Surgeon Role Service Panel Lidia Jc MD Resident - Assisting Gynecology 1 Katia Clark MD Resident - Assisting Gynecology 1 Marianna Bansal MD Primary Gynecology Onc ology 1 documented in this encounter Social History Tobacco Use Types Packs/Day Years Used Date Smoking Tobacco: Former Cigarettes 0.5 10 Smokeless Tobacco: Never Comments:Started and Stopped several times Alcohol Use Standard Drinks/Week Comments Yes 4 (1 standard drink = 0.6 oz pur e alcohol) [facility] Utilities Answer Date Recorded In [...] money to get more. Never true 07/03/2024 [facility] - Inadequate Housing Answer Date Re corded What is your living situation today? I have a [facility] place to live 07/03/[address] you li ve. Do you have problems with any of the following? None of the above 07/03/2024 [facility] - Transportation Answer Date Record ed In the past 12 months, has l ack of reliable transportation kept you from medical appointments, meetings, work or from getting things needed for daily living? No 07/03/2024 [facility] - Personal Safety Answer Date [...] Sign Reading Time Taken Comments Blood Pressure 137/71 07/02/2024 1209 EST Pulse - - Temperature 36.6 ??C (97.9 ??F) 07/02/2024 1209 EST Respiratory Rate 18 07/02/2024 1209 EST Oxygen Saturation 99% 07/02/2024 1209 EST Inhaled Oxygen Concentration - - Weight 72.1 kg (158 lb 15.2 oz) 07/02/2024 1209 EST Height 157.5 cm (5' 2) 07/02/2024 1209 EST Body Mass Index 29.07 07/02/2024 1209 EST documented in this encounter [...] De Santiago RN documented in this encounter Discharge Summaries * Tanvi Flanagan MD - 07/03/2024 0659 EST Discharge Summary Admit Date: N/A Discharge Date: 07/03/24 Principal/Final Diagnosis: Endometrial cancer ([facility]) Chief Complaint: G3 endometrioid adenocarcinoma Principal Procedure: RA-TLH, BSO, ICG dye injection, SLND on 07/02/24 Condition at Discharge: Stable Hospital Course: Fatoumata is a 58 y.o. year old female who was admitted to the gynecologic Oncology/gynecology service following an uncomplicated A-TLH, BSO, ICG dye injection, SLND that was performed for a history of G3 endometrioid adenocarcinoma . Please see operative report for full details. The patient did well post-operatively with stable vital signs and good pain control. Her Hct remained stable post-operatively. She had small hematoma at her left-most port site which was approximately 4cm and stable prior to discharge. On the morning of POD #1, she tolerated a regular diet, ambulatedand voided independently after removal of her jack catheter. She was subsequently discharged to home with instructions to follow up 07/[address] Bansal. Last Lab Results at Discharge: CBC: Recent Labs 07/02/24 1233 07/03/24 0656 WBC 4.86 7.41 RBC 4.32 3.76* HGB 13.7 12.4 HCT 40.1 35.8 MCV 93 95 MCH 31.7 33.0 MCHC 34.2 34.6 PLT 230 232 Discharge Summary Completed: 07/03/24 Katia Clark MD 07/03/24 7:38 Obstetrics & Gynecology, PGY-1 Pager #[phone] & Tanvi Flanagan MD, PGY-2 Cosigned by Marianna Bansal MD at 07/03/2024 8:45 EST documented in this encounter Discharge Instructions * Discharge Instr - AVS First Page* Katia Clark MD - 07/03/2024 6:42 EST You have undergone a robotic assisted laparoscopic hysterectomy. Many people feel quite well following their surgery and are tempted to resume their usual activities. It is important to remember that you had major surgery. For this reason you should limit your activities. No heavy lifting - no more than 25 pounds for 12 weeks. We recommend the common sense rule: If there is pain, pressure or discomfort when lifting , STOP. No driving for 1 week, or longer if you are taking narcotic pain medication. Do not place anything into your vagina for 12 weeks (no tampons, douching or intercourse). If you have stairs in your home, you may go up and down, but try to limit to only 2 times per day for the first days that you are home. You may shower 24 hours after your surgery, let the water run over your incisions and pat dry, but do not scrub the incisions. Pat dry with a clean towel. You should not immerse in water (no bath tubs, hot tubs or swimming) for 6 weeks, or longer if you have vaginal spotting or a discharge. Work with your doctor to plan your return to normal work activities. PAIN CONTROL SCHEDULE For the first three days after leaving the hospital please take tylenol and ibuprofen, throughout the day. Set an alarm so that you are taking a medication every 8 hours. During those first three days, you should take the medications even if your pain is well controlled. After the first three days you can take pain medication as needed. You do not need to set an alarm at night time. You should take the oxycodone only if you feel like your pain is not well controlled with the tylenol and ibuprofen. If you pain does not improve with your pain medications and is worsening please give our office a call. -1000mg of tylenol every 8 hours - 800mg of motrin every 8 hours documented in this encounter Medications at Time [...] Take 1 Tablet by mouth daily. omega 8-lgk-hso-fish oil 350 mg-235 mg- 90 mg-597 mg capsule,delayed release(DR/EC) Take by mouth. oxyCODONE (ROXICODONE) 5 mg immediate release tablet Take 1 Tablet by mouth every 4 hours as needed for Pain. Daily Max: 30 mg 5 Tablet 07/03/2024 VITAMIN B COMPLEX-100 ORAL Take 1 Tablet by mouth daily. 04/16/2024 enoxaparin (LOVENOX) 40 mg/0.4 mL injection Inject 40 mg into the skin daily for 7 days. 3 mL 07/03/2024 07/10/2024 documented as of this encounter Ordered Prescriptions Prescription Sig Dispense Quantity Refills Last Filled Start Date End Date oxyCODONE (ROXICODONE) 5 mg immediate release tablet Take 1 Tablet by mouth every 4 hours as needed for Pain. Daily Max: 30 mg 5 Tablet 07/03/2024 ibuprofen (MOTRIN) 800 mg tablet Take 1 Tablet by mouth every 8 hours as needed for Pain. 07/03/2024 docusate sodium (COLACE) 100 mg capsule Take 1 Capsule by mouth 2 times daily as needed for Constipation. 60 Capsule 07/03/2024 acetaminophen (TYLENOL) 500 mg tablet Take 2 Tablets by mouth every 8 hours as needed for Pain. 07/03/2024 enoxaparin (LOVENOX) 40 mg/0.4 mL injection Inject 40 mg into the skin daily for 7 days. 3 mL 07/03/2024 4 documented in this encounter Discharge Disposition Disposition Code Departure Means Destination Comment s Home or Self Long-Term documented in this encounter Progress Notes * Heidy Dunn - 07/03/2024 9940 EST Fatoumata Lewis 1965 Endometrial cancer ([facility]) Chart review completed and discussed the plan of care with the direct care RN and/or primary care team. Primary Insurance: [employer] Secondary Insurance: Patient with no apparent Case Management needs at this time. No housing, transportation, insurance,resources concerns identified at this time. Supports in place to achieve a safe post-hospital transition. No identified barriers to accessing necessary care and/or follow-up after discharge. This selling underwriter learned pt has discharged 07/03/24 with no CM needs. HEIDY DUNN 07/03/2024 14:11 * Katia Clark MD - 07/03/2024 0630 EST Gynecology Progress Note Service Date: 07/03/2024 Admit Date: 07/02/2024 11:23 ( LOS: 0 days ) POD: 1 (07/02/2024) Chief Complaint: G3 endometrioid adenocarcinoma 24 Hour Events: - s/p RA-TLH, BSO, ICG dye injection, SLND for G3 endometrioid adenocarcinoma - admitted for post-op monitoring - Failed TOV, straight cath 350cc at 0330 Subjective/Objective Subjective Feeling well overall, didn't sleep well d/t being in the hospital. Tolerating PO intake, voided 150cc this morning. Ambulating without issues. Pain is well controlled. No CP or SOB. Discussed lovenox, patient wants to delay teaching until her is at the bedside to help her. Objective UOP: 350cc/3h Vital Signs Temp: [36.3 ??C (97.3 ??F)-36.7 ??C (98.1 ??F)] , Heart Rate: [70 BPM-90 BPM] , Resp: [12-19] , BP:(123-144)/(63-101) , SpO2: [98 %-100 %] Physical Exam GEN: NAD CV: RRR Pulm: normal respiratory effort Abd: soft, non-distended, minimal tenderness to palpation, non-tympanic, non- peritonitic. Left mostport site with approximately 3x4cm hematoma with minimal expansion beyond borders. Other port siteshealing well. Medications Reviewed: No changes Labs Reviewed: No new labs. Assessment/Plan Assessment Fatoumata Lewis is a 58 y.o. POD#1 s/p RA-TLH, BSO, ICG dye injection, SLND for G3 endometrioid adenocarcinoma. Admitted for routine post-op care, overall recovering well. Will continue to monitorport-site hematoma. AVSS. [facility], planning for discharge later today after 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 Bansal on 07/15 - will continue to monitor port site hematoma/AM CBC, at this time plan for monitoring and conservative treatment Pain: Well controlled on current regimen. - apap 650mg q4h, toradol -> motrin 600mg q6h prn, dilaudid prn CV: Stable, no active issues. Resp: No active issues, encourage IS. GI: Regular diet as tolerated. Phenergan and Zofran PRN for nausea. Colace for bowel regimen. : - Jack out at end of case DTV at 0000 - Failed TOV, straight cath 350cc at 0330, this morning voiding without issues F/E/N: No active issues. Tolerating PO. Endo: No active issues. Heme: Pre-op Hct 40, EBL 230. AM CBC pending. 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 VTE Prophylaxis: Ambulation, SCD's Disposition: D/C home once tolerating po, pain well controlled, ambulating and voiding independently Katia Clark MD 07/03/24 6:32 Obstetrics & Gynecology, PGY-1 Pager #[phone] Cosigned by Marianna Bansal MD at 07/03/2024 8:50 EST * Anamaria Mejía RN - 07/02/2024 7969 EST FOUR EYES SKIN ASSESSMENT Four Eyes skin assessment was performed on admission to the unit by Anamaria Mejía RN and Rena Fuentes RN. Patient has the following devices at the time of this assessment: O2 sat probe and SCD sleeves. Device related pressure injury present? No Areas of concern: Fill in detail for areas of concern [] Occiput [] Nose [] Ear [] Lip [] Scapula [] Spinous process [] Shoulder [] Elbow [] Iliac crest [] Sacrum/coccyx [] Ischial tuberosity [] Trochanter [] Knee [] Malleolus [] Heel [] Toe [x] Other: ABD lap. Incisions from surgery, left most lateral lap site is bruised and swollen, MD notified, came to bedside to assess, marked with skin marker. Last Axel Score: 21 Instructions: Add LDA for any identified wounds Add [place] image for any suspected PI or non surgical wounds Order wound consult if suspected PI identified If Axel is < or = to 16, initiate Pressure Injury Prevention Bundle ([id number]). 07/02/2024 22:41 * Katie Lentz MD - 07/02/20242129 EST Gynecology Progress Note Service Date: 07/02/2024 Admit Date: 07/02/2024 11:23 ( LOS: 0 days ) POD: 0 (07/02/2024) Chief Complaint: G3 endometrioid adenocarcinoma 24 Hour Events: - s/p RA-TLH, BSO, ICG dye injection, SLND for G3 endometrioid adenocarcinoma - admitted for post-op monitoring Subjective/Objective Subjective Fatoumata reports overall doing well. Pain is minimal right now. Has drank some water and tolerated well. Has not ambulated much yet. No void yet though will try soon. Denies dizziness/lightheadedness, chest pain, SOB. Objective UOP: no void since out of OR, DTV at 0000 Vital Signs Temp: [36.6 ??C (97.9 ??F)] , Heart Rate: [73 BPM] , Resp: [18] , BP: (137)/(71) , SpO2: [99 %] Physical Exam GEN: NAD CV: RRR Pulm: normal respiratory effort Abd: soft, non-distended, minimal tenderness to palpation, non-tympanic, non- peritonitic. Leftmost port site with approximately 3x4cm hematoma, nontender to palpation, borders marked. Other port sites healing well. Medications Reviewed: No changes Labs Reviewed: No new labs. Assessment/Plan Assessment Fatoumata Lewis is a 58 y.o. POD#0 s/p RA-TLH, BSO, ICG dye injection, SLND for G3 endometrioid adenocarcinoma. Admitted for routine post-op care, overall recovering well. Will continue to monitorport-site hematoma. AVSS. DTV at midnight. 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 Bansal on 07/15 - will continue to monitor port site hematoma/AM CBC, at this time plan for monitoring and conservative treatment Pain: Well controlled on current regimen. - apap 650mg q4h, toradol -> motrin 600mg q6h prn, dilaudid prn CV: Stable, no active issues. Resp: No active issues, encourage IS. GI: Regular diet as tolerated. Phenergan and Zofran PRN for nausea. Colace for bowel regimen. : Jack removed at end of case. DTV at midnight. F/E/N: No active issues. Tolerating PO. Endo: No active issues. Heme: Pre-op Hct 40, EBL 230. AM CBC pending. ID: Afebrile, no active issues. VTE Prophylaxis: Ambulation, SCD's Disposition: D/C home once tolerating po, pain well controlled, ambulating and voiding independently KATIE LENTZ MD documented in this encounter H&P Notes * Lidia Jc MD - 07/02/2024 1451 EST DEPARTMENT OF GYNECOLOGY ONCOLOGY PRE-OP HISTORY AND PHYSICAL CC: G3 endometrioid adenocarcinoma Date of Service: 07/02/2024 HPI: Fatoumata Lewis is a 58 y.o. No obstetric history on file. who presents for planned RA-TLH, BSO,ICG dye injection, SLND for G3 endometrioid adenocarcinoma. Feeling well today. 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 PMH PSH Past Medical History: Diagnosis Date Back pain 06/25/24 chronic low back Cancer (HCC-CMS) 06/25/24 endometrial cancer, hysterectomy scheduled Claustrophobia Depression 06/25/24 controlled on med Exercise involving walking 06/25/24 walks daily, no issues with stairs Panic attacks Rash 06/25/24 psoriasis on scalp and arm pits, no meds History reviewed. No pertinent surgical history. Social History Family History Social History Tobacco Use Smoking status: Former Current packs/day: 0.50 Average packs/day: 0.5 packs/day for 10.0 years (5.0 ttl pk-yrs) Types: Cigarettes Smokeless tobacco: Never Tobacco comments: Started and Stopped several times Substance Use Topics Alcohol use: Yes Alcohol/week: 4.0 standard drinks of alcohol Types: 4 Cans of beer per week Family History Problem Relation Age of Onset Cancer Father Depression Father Heart Disease Father High Blood Pressure Father Cancer Maternal Grandfather Cancer Paternal Grandmother Cancer Sister Depression Sister High Blood Pressure Sister Medications Facility-Administered Medications Prior to Admission Medication Dose Route Frequency Provider Last Rate Last Admin chlorhexidine gluconate 2 % cloth 1 Each 1 Each topical DAILY Marianna Bansal MD Medications Prior to Admission Medication Sig Dispense Refill Last Dose/Taking acetaminophen (TYLENOL) 500 mg tablet Take 1 Tablet by mouth every 6 hours as needed for Pain. 07/02/2024 at 5:40 cholecalciferol, Vitamin D3, 25 mcg (1,000 unit) tablet Take 1 Tablet by mouth daily. Past Week citalopram (CELEXA) 20 mg tablet Take 1 Tablet by mouth daily. 07/02/2024 at 7:30 magnesium oxide (MAG-OX) 400 mg (241.3 mg magnesium) tablet Take 1 Tablet by mouth daily. Past Week omega 6-wzt-fxg-fish oil 350 mg-235 mg- 90 mg-597 mg capsule,delayed release(DR/EC) Take by mouth. Past Week VITAMIN B COMPLEX-100 ORAL Take 1 Tablet by mouth daily. Past Week Allergies No Known Allergies Objective: Vitals: 07/02/24 1209 BP: 137/71 BP Cuff Location: Right arm BP Patient Position: Semi fowlers Resp: 18 Temp: 36.6 ??C (97.9 ??F) TempSrc: Temporal SpO2: 99% Weight: 72.1 kg (158 lb 15.2 oz) Height: 157.5 cm (62) Body mass index is 29.07 kg/m??. GEN: NAD, pleasant CV: RRR, no murmurs PULM: CTAB throughout, no wheezes. Labs: CBC: Recent Labs 07/02/24 1233 WBC 4.86 RBC 4.32 HGB 13.7 HCT 40.1 MCV 93 MCH 31.7 MCHC 34.2 PLT 230 Assessment: Fatoumata Lewis is an 58 y.o. No obstetric history on file. who presents for planned RA-TLH, BSO, ICG dye injection, SLND for G3 endometrioid adenocarcinoma. AVSS, NPO. Okay to proceed with surgery. Plan: - Consents reviewed, previously signed - Abx: ancef, flagyl - DVT ppx : heparin - Anticipate admission overnight, with likely discharge tomorrow. Patient discussed and plan directly developed with attending physician Dr. Bansal. LIDIA JC MD 07/02/2024 14:51 Pager [phone] Cosigned by Marianna Bansal MD at 07/02/2024 19:04 EST documented in this encounter OR Notes * OR Surgeon - Lidia Jc MD - 07/02/2024 1818 EST Gynecologic Oncology Operative Note Date: 07/02/2024 Location: [facility] Main OR Name: Fatoumata Lewis : 1965 Diagnosis: Pre-Op: Endometrial Cancer Post-Op: same Procedures: Robotic-assisted total laparoscopic hysterectomy, bilateral salpingo- oophorectomy, ICG dye injection, bilateral sentinel lymph node biopsy, cystoscopy Surgeons: * Marianna Bansal MD - Primary * Lidia Jc MD - Resident - Assisting * Katia Clark MD - Resident - Assisting Staff: Devops Developer: Dorothy Combs RN Relief Devops Developer: Sylvia Law RN Relief Scrub: Rola Miller RN Scrub Person: Namita Mcclelland RN Procedure Summary: Anesthesia: General - ET ASA: I Estimated Blood Loss: 100mL Total IV Fluids: 900 mL crystalloid UOP: 75 mL Blood products: none Procedure Details: Indication: Fatoumata Lewis is a 58 y.o. patient who is having surgery for endometrial cancer. Findings: Pre-operative pelvic exam demonstrated normal external female genitalia, bimanual exam demonstrateda small, anteverted uterus without palpable adnexal masses, speculum exam demonstrated normal vaginal mucosa with a unremarkable cervix Laparoscopic examination of the abdomen demonstrated a grossly normal upper abdomen, normal bilateral fallopian tubes and ovaries, and normal appearing uterus without obvious serosal defects. Adhesions along bladder flap ICG on the left mapped to the left external iliac sentinel lymph node ICG on the right mapped to the right external iliac, and para-aortic sentinel lymph node Cystoscopy with normal bladder mucosa and vigorous urinary jets from bilateral ureteral orifices. Specimen: Pelvic washings for cytology Left sentinel lymph node Right sentinel lymph node Para-aortic lymph node. Uterus/cervix/bilateral fallopian tubes/bilateral ovaries Procedure Description: The patient was seen in the preoperative area. The risks, benefits, complications, treatment options, non-operative alternatives, expected recovery and outcomes were discussed with the patient. The possibilities of reaction to medication, pulmonary aspiration, injury to surrounding structures, bleeding, recurrent infection, the need for additional procedures, failure to diagnose a condition, and creating a complication requiring transfusion or operation were discussed with the patient. The patient concurred with the proposed plan, giving informed consent. The site of surgery was properly noted/marked if necessary per policy. The patient has been actively warmed in preoperative area. Preoperative antibiotics have been ordered and given within 1 hours of incision. Venous thrombosis prophylaxis have been ordered including bilateral sequential compression devices and chemical prophylaxis The patient was taken to the OR with peripheral access in place. General anesthesia was induced andan endotracheal tube was placed without complication. Additional access was obtained (see LDAs below) prior to starting the surgical procedure. A WHO timeout was performed with the entire OR team where the patient, procedure, allergies, pre-operative antibiotics, anticoagulation, positioning, fire risk, anesthesia concerns, disposition and topics unique to this case were confirmed and discussed, with all those participating in agreement of accuracy at the conclusion. The patient was then positioned in the low lithotomy position with arms tucked. An exam under anesthesia was then performed with the findings as noted above. She was then prepped and draped in the normal sterile fashion and a jack catheter was placed. A sterile speculum was placed in the patient???s vagina and the cervix was visualized. 1cc of ICG was injected into the cervical stroma at 1cm and 0.5cm depths at both the 3 and 9 o'clock positions for a total of [id number]. A stay suture of 0-proline was placed in the anterior cervical stroma for traction. The cervixwas then gently, serially dilated to accommodate the uterine manipulator. The Yadira manipulator was then placed without difficulty in the standard fashion. The speculum was then removed from the vagina. Two centimeters above umbilicus, the skin was injected with local anesthetic. A 1 cm incision was made with the scalpel. The abdomen was tented upward. Veress needle was inserted. Saline test was performed and was negative. CO2 was attached. Opening pressure was less than 5 mmHg and the abdomen wasinsufflated with CO2. Veress needle was removed, trocars placed. Camera was inserted and the findings are as dictated above. The 4 other ports were placed by injecting the skin with local anesthetic,making a 1 cm incision with the scalpel and placing the trocars under direct visualization. The patient was then placed in Trendelenburg. Bowels were swept out of the pelvis. The robot was docked. Sal otic instruments were placed. Washings were done. A survey of the pt???s abdomen and pelvis was performed revealing findings per above. The right retroperitoneal space was entered parallel to the infundibulopelvic ligament and the ureter was identified in the retroperitoneal space along its course in the medial leaf of the broad ligament. Next the external iliac vessels, the obliterated umbilical ligament and the obturator nerve were identified. Mapping of the ICG was identified in the left parametria, and the lymphatic channels were seen crossing the obliterated umbilical ligament and terminating in two external iliac lymph node. Using a combination of blunt, bipolar and monopolar cautery, the right lymph nodes were dissected out and removed from the abdomen using a laparoscopic spoon and sent for pathology. The same process was performed on the left and the ICG mapped to the external iliac lymph node which was identified and removed in the same fashion. Due to enlarged para-aortic lymph nodes on imaging, the para-aortic lymph node was also dissected and sent for pathology. Attention was then turned to performing the hysterectomy and bilateral salpingooophorectomy. A fenestration was made in the medial leaf of the right broad ligament between the ureter and IP ligament.The right IP ligament was then sealed with bipolar cautery and transected. Excellent hemostasis wasnoted. The right peritoneum was then transected down to the level of the uterine artery. A bladder flap was then created and the right uterine artery isolated and ligated with bipolar energy. The above steps were then repeated on patient's left side. Next, uterosacral and cardinal ligament bipolar ligation and division was completed bilaterally. Colpotomy was performed with monopolar energy and the uterus/cervix/bilateral fallopian tubes and ovaries was delivered intact vaginally. The vaginal cuff was then closed using 5 figure of eight sutureswith 2.0 vicryl. The pelvis was irrigated and excellent hemostasis was noted. Cystoscopy was then performed with intact bladder mucosa without defects or sutures. Vigorous jets seen from bl ureteral orifices. The robot was undocked, all instruments were removed from the abdomen under direct visualization. The fascia of the recovery assistant port was closed using 0- vicryl. The skin was closed with 4-0 monocryl anddressed with dermabond. Dr Bansal was present and scrubbed for the entire procedure. All instrument and lap counts were correct x2. Complications: None; patient tolerated the procedure well. Disposition: PACU - hemodynamically stable. Condition: stable Implants: none LDAs: PIV x 2 LIDIA JC MD Cosigned by Marianna Bansal MD at 07/02/2024 19:05 EST documented in this encounter Miscellaneous Notes * Result Encounter Note - Marianna Bansal MD - 07/03/2024 1345 EST Fatoumata, Your washings are negative. No cancer. Marianna Bansal MD * Result Encounter Note - Marianna Bansal MD - 07/03/2024 1345 EST Blanka, please add to TB in July. Fatoumata, We will review your pathology in depth on 07/15. The good news is that it was not in the washings, not in the tubes/ovaries, and not in the lymph nodes! It was contained in the uterus and cervix, so it is a stage 2. Marianna Bansal MD * Plan of Care - Bijubrigida Ibis - 07/03/2024 1322 EST Data: POD #1 s/p RA-TLH, BSO, ICG dye injection, and SLND for G3 endometrial cancer. Pt has 5 abdominal incisions that are dark purple with mild bruising and swelling; Sutures and dermabond skin adhesive dressing C/D/I. Left-most site has a small hematoma, MD marked with a skin marker and is not concerned at this time. Scant amount of sanguinous vagina drainage, carlos pad in place. Pt reports paina 4/10. Continent and Voiding, ambulates to the bathroom independently. Action: Hourly rounding and Q4 VS. Medications administered per MAR. Toradol and Tylenol given for pain. Provided [id number] instructions on how to administer Lovenox, watched pt's administer today's dose. Explained d/c teaching. Response: Discharged teaching complete, pt understood and had no further questions. D/C'ed home with . Pt left the unit via wheelchair. Follow-up appointment with Dr. Bansal on 07/15. Ibis Muir 07/03/2024 9:34 Problem: Daily Care Plan Goals Goal: Care Plan Documentation Outcome: Ongoing Flowsheets (Taken 07/03/2024 0800) Area of Focus: Discharge Plan Problem: High Fall Risk: Goal: Patient Will Remain Free from Fall-Related Injury Outcome: Ongoing Problem: High Fall Risk: Goal: Patient will Remain Free of Falls due to Med. Side Effects Outcome: Ongoing Cosigned by Eileen Parks RN at 07/03/2024 13:33 EST * Plan of Care - Steve Carney RN - 07/03/2024 1131 EST Problem: Daily Care Plan Goals Goal: Care Plan Documentation Outcome: Ongoing Flowsheets (Taken 07/03/2024 0800 by Ibis Muir) Area of Focus: Discharge Plan Goal This Shift: Pt will understand teaching Nursing Discharge Note D: Patient noted with discharge orders to: home. A: Prescriptions provided to patient. Reviewed discharge instructions and prescriptions with Patient IV d/c'd. Belongings collected and sent home with patient. R: Patient and Family verbalized understanding of discharge instructions and denied further questions. STEVE CARNEY RN 07/03/2024 11:31 documented in this encounter Plan of Treatment Scheduled Referrals Name Type Priority Associated Diagnoses Order Schedule PROVIDER FOLLOW-UP INSTRUCTIONS Outpatient Referral Routine Ordered: 07/03/2024 PROVIDER FOLLOW-UP INSTRUCTIONS Outpatient Referral Routine Ordered: 07/03/2024 documented as of this encounter Procedures Procedure Name Priority Date/Time Associated Diagnosis Comments COMPLETE BLOOD COUNT Routine 07/03/2024 6:56 EST SCREENING GLUCOSE Routine 07/02/2024 20: 32 EST NON DECAL APPLIER/FNA CYTOLOGY Routine 07/02/2024 16:29 EST SURGICAL PATHOLOGY Routine 07/02/2024 16 :29 EST CYSTOSCOPY, RIGID 07/02/2024 15: 06 EST Endometrial cancer (HCC-CMS) LYMPHADENECTOMY, PELVIS, ROBOT-ASSISTED, WITH BIOPSY 07/02/2024 15:06 EST Endometrial cancer (HCC-CMS) ROBOTIC-ASSISTED INTRAOPERATIVE MAPPING SENTINEL LYMPH NODES INCLUDING INJECTION 07/02/2024 15:06 EST Endometrial cancer (HCC-[facility]) HYSTERECTOMY, ROBOT-ASSISTED, WITH SALPINGO-OOPHORECTOMY IF INDICATED, FOR UTERUS LESS THAN 250 GRAMS 07/02/2024 15:06 EST Endometrial cancer ([facility]) COMPLETE BLOOD COUNT Routine 07/02/2024 12:33 EST TYPE AND SCREEN Routine 07/02/2024 12:33 EST documented in this encounter Results * (ABNORMAL) COMPLETE BLOOD COUNT (07/03/2024 6:56 EST) WBC 7.41 4.00 - 12.40 K/cmm 07/03/2024 7:22 [facility] RBC 3.76(L) 3.86 - 5.04 M/cmm 07/03/2024 7:22 [facility] Hemoglobin 12.4 11.6 - 15.2 g/dL 07/03/2024 7:22 [facility] HCT 35.8 34.9 - 44.4 % 07/03/2024 7:22 [facility] MCV 95 81 - 98 fL 07/03/2024 7:22 [facility] MCH 33.0 26.7 - 33.3 pg 07/03/2024 7:22 [facility] MCHC 34.6 32.1 - 35.9 g/dL 07/03/2024 7:22 [facility] RDW-CV 13.2 <14.7 % 07/03/2024 7:22 [facility] RDW-SD 46.0 <50.4 fl 07/03/2024 7:22 [facility] PLT 232 141 - 377 K/cmm 07/03/2024 7:22 [facility] MPV 10.2 9.5 - 12.7 fL 07/03/2024 7:22 [facility] Blood VENOUS BLOOD / Unknown Venipuncture / Unknown 07/03/2024 6:56 EST 07/03/2024 7:14 EST Lidia Jc MD HEMATOLOGY & PF4 ORDERABLES Joana l Result [facility] [address] [place] [address] * (ABNORMAL) SCREENING GLUCOSE (07/02/2024 20:32 EST) Glucose, Screening 140(H) 70 - 100 mg/dL 07/02/2024 21:08 EST [facility] Blood VENOUS BLOOD / Unknown Venipuncture / Unknown 07/02/2024 20:32 EST 07/02/2024 20:39 EST Lidia Jc MD CHEMISTRY & BLOOD GAS ORDERABLES Final Result Performing Organization Address City/[facility]/ZIP Co de Phone Number [facility] [address] [place] [address] * NON DECAL APPLIER/FNA CYTOLOGY (07/02/2024 16:29 EST) Note to Patient The following pathology results have been interpreted by your pathologist and may be available to you before your health provider has had the opportunity to review them. Please allow time for your provider to receive these results and explore management options, if applicable. 07/03/2024 16:32 [facility] Final Diagnosis A. PERITONEAL WASHINGS, CUL DE SAC, CYTOLOGIC EVALUATION: - Negative for malignant cells. 07/03/2024 16:32 [facility] Attestation There was significant resident/yordy w involvement in the diagnostic evaluation of this case. By the signature below, the attending physician certifies that they have personally conducted a gross and/or microscopic examination of the described specimens and rendered or confirmed the above diagnosis. 07/03/2024 16:32 [facility] at 1632 Clinical History Endometrial cancer (HCC-CMS) 07/03/2024 16:32 [facility] Gross Description A. 200cc's of clear colorless fluid were received and processed by selective cellular enhancement technique. 07/03/2024 16:32 [facility] Resident/Yordy w: Billie Curry DO 07/03/2024 16:32 [facility] Performing Lab [facility] 07/03/2024 16:32 [facility] Scanned Images 07/03/2024 16:32 [facility] Wash PERITONEAL FLUID / Unknown 07/02/2024 16:29 EST 07/03/2024 6:50 EST us Marianna Bansal MD PATHOLOGY ORDERABLES Fi nal Result [facility] [address] [place] [id number] * SURGICAL PATHOLOGY (07/02/2024 16:29 EST) Ancillary Studies Addendum At the request of Dr. Marianna Bansal, a block from [id number] (D3) was sent to [facility] for testing. For [employer] results, please see scanned report in EPIC. 07/29/2024 16:15 [facility] Addendum electronically signed by Viri Bradley MD on 07/29/2024 at 1615 Note to Patient The following pathology results have been interpreted by your pathologist and may be available to you before your health provider has had the opportunity to review them. Please allow time for your provider to receive these results and explore management options, if applicable. 07/29/2024 16:15 [facility] Final Diagnosis A. [...] cysts. - Negative for malignancy. 07/29/2024 16:15 [facility] Diagnosis Comment Levels and pancytokeratin stains (AE1-AE3, [employer]) performed on all blocks of sentinel lymph nodes (A1-A3, B1-B3, C1-C3) are negative for carcinoma. Immunohistochemica l staining for mismatch repair (MMR) proteins for [place] [facility] Screening has been performed on a prior specimen which showed retained expression of all 4 MMR proteins. See [id number] for details. Immunoperoxidase stains were performed on [...] performance characteristics have been determined by [facility] and/or by the referring laboratory. The positive [...] high complexity clinical laboratory testing. 07/29/2024 16:15 [facility] Attestation There was significant resident/fellow involvement in the diagnostic evaluation of this case. By the signature below, the attending physician certifies that they have personally conducted a gross and/or microscopic examination of the described specimens and rendered or confirmed the above diagnosis. 07/29/2024 16:15 [facility] at 1259 Synoptic [...] Nodes Examined: ?6 ? Number of Pelvic [place] Nodes Examined: ?6 ? Total Number of Para-aortic Nodes Examined: ?1 ? Number of Para-aortic [place] Nodes Examined: ?1 pTNM CLASSIFICATION (AJCC 8th [...] STAGE ?? FIGO Stage: ?IIC 07/29/2024 16:15 [facility] Clinical History Endometrial cancer (HCC-CMS) 07/29/2024 16:15 [facility] Gross Description A. [...] cut surface with a pinpoint lumen throughout. [employer] sections are submitted as follows: BLOCK SPRING [...] BELGICA JACOBSON MD 07/03/2024 11:27 07/29/2024 16:15 [facility] Resident/Yordy w: Belgica Jacobson MD Raziel, Cassandra, MD 07/29/2024 16:15 [facility] Performing Lab [facility] 16:15 [facility] Scanned Images 07/29/2024 16:15 [facility] Tissue SENTINEL LYMPH [...] PATHOLOGY ORDERABLES Ed ited Result - Final [facility] [address] [place] [id number] * COMPLETE BLOOD COUNT (07/02/2024 12:33 EST) WBC 4.86 4.00 - 12.40 K/cmm 07/02/2024 12:48 [facility] RBC 4.32 3.86 - 5.04 M/cmm 07/02/2024 12:48 [facility] Hemoglobin 13.7 11.6 - 15.2 g/dL 07/02/2024 12:48 [facility] HCT 40.1 34.9 - 44.4 % 07/02/2024 12:48 [facility] MCV 93 81 - 98 fL 07/02/2024 12:48 [facility] MCH 31.7 26.7 - 33.3 pg 07/02/2024 12:48 [facility] MCHC 34.2 32.1 - 35.9 g/dL 07/02/2024 12:48 [facility] RDW-CV 13.1 <14.7 % 07/02/2024 12:48 [facility] RDW-SD 44.6 <50.4 fl 07/02/2024 12:48 [facility] PLT 230 141 - 377 K/cmm 07/02/2024 12:48 EST [facility] MPV 10.2 9.5 - 12.7 fL 07/02/2024 12:48 EST [facility] Blood VENOUS BLOOD / Unknown Venipuncture / Unknown 07/02/2024 12:33 EST 07/02/2024 12:36 EST Lidia Jc MD HEMATOLOGY & PF4 ORDERABLES Joana l Result [facility] [address] [place], [place] [id number] * TYPE AND SCREEN (07/02/2024 12:33 EST) ABO B 07/02/2024 13:50 EST [facility] Rh Factor Positive 07/02/2024 13:50 EST [facility] Antibody Screen Negative 07/02/2024 13:50 EST [facility] Specimen Expires: 07/05/2024 @ 23:59 07/02/2024 13:50 EST [facility] Blood VENOUS BLOOD / Unknown Venipuncture / Unknown 07/02/2024 12:33 EST 07/02/2024 12:41 EST Lidia Jc MD BLOOD BANK TESTS Edited Result - Final [facility] [address] [place], [place] [id number] documented in this encounter Visit Diagnoses Diagnosis Endometrial cancer (HCC-CMS)- Primary Malignant neoplasm of corpus uteri, except isthmus Endometrial cancer (HCC-CMS) Malignant neoplasm of corpus uteri, except isthmus documented in this encounter Admitting Diagnoses Diagnosis Endometrial cancer (HCC-CMS) Malignant neoplasm of corpus uteri, except isthmus documented in this encounter Administered Medications Inactive Administered Medications - up to 3 most recent administrations Medication Order MAR Action Action Date Dose Rate Site acetaminophen (TYLENOL) tablet 650 mg 650 mg, oral, EVERY 4 HOURS, First dose on Sun07/02/24 at 2200, Until Discontinued, Routine Given 07/03/2024 8:35 EST 650 mg Given 07/03/2024 3:50 EST 650 mg Given 07/02/2024 21:13 EST 650 mg BUPivacaine (PF) (MARCAINE) 0.25 % (2.5 mg/mL) injection PRN, Starting on Sun07/02/24 at 1800, Until Sun07/02/24 at 1824, Routine, Intraprocedure Given 07/02/2024 18:00 EST 10 mL Abdominal Tissue chlorhexidine gluconate 2 % cloth 1 Each 1 Each, topical, PRN, 1 dose, Starting on Sun07/02/24 at 1204, Until Sun07/02/24 at 1233, Other, PRN dose to be used if the patient did not apply first dose of chlorhexidine prior to arrival, Routine, Preprocedure Given 07/02/2024 12:33 EST 1 Each citalopram (CELEXA) tablet 20 mg 20 mg, oral, DAILY, First dose on Sun07/03/24 at 0900, Until Discontinued, Routine Given 07/03/2024 8:35 EST 20 mg diphenhydrAMINE (BENADRYL) capsule 25 mg 25 mg, oral, EVERY 6 HOURS PRN, Starting on Sun07/02/24 at 202, Until Sun07/03/24 at 1545, Itching, Routine diphenhydrAMINE (BENADRYL) injection 25 mg 25 mg, intravenous, EVERY 6 HOURS PRN, Starting on Sun07/02/24 at 202, Until Sun07/03/24 at 1545, Itching, Routine docusate sodium (COLACE) capsule 100 mg 100 mg, oral, 2 TIMES DAILY, First dose on Sun07/02/24 at 2100, Until Discontinued, Routine Given 07/03/2024 8:35 EST 100 mg Given 07/02/2024 21:13 EST 100 mg enoxaparin (LOVENOX) injection 40 mg 40 mg, subcutaneous, DAILY, First dose on Sun07/03/24 at 0900, Until Discontinued, Routine Given 07/03/2024 9:17 EST 40 mg enoxaparin teaching kit 1 Each 1 Each, other, NOW X1, 1 dose, On Sun07/03/24 at 0745, Routine Given 07/03/2024 9:27 EST 1 Each heparin injection 5,000 Units 5,000 Units, subcutaneous, PRE-OP ONCE, 1 dose, On Sun07/02/24 at 1230, Routine, Preprocedure Given 07/02/2024 15:09 EST 5,000 Units HYDROmorphone (DILAUDID) tablet 2-4 mg 2-4 mg, oral, EVERY 30 MINUTES PRN, 2 doses, Starting on Sun07/02/24 at 1817, Until Sun07/02/24 at 2004, Pain, Routine, Recovery (only) Given 07/02/2024 18:46 EST 4 mg HYDROmorphone (DILAUDID) tablet 2-4 mg 2-4 mg, oral, EVERY 4 HOURS PRN, Starting on Sun07/02/24 at 202, Until Iraida 07/03/24 at 1545, Pain, Routine HYDROmorphone (PF) (DILAUDID) 0.5 mg/0.5 mL syringe 0.3-0.6 mg 0.3-0.6 mg, intravenous, EVERY 3 HOURS PRN, Starting on Sun07/02/24 at 2021, Until Iraida 07/03/24 at 1545, Pain, Routine ibuprofen (MOTRIN) tablet 600 mg 600 mg, oral, EVERY 6 HOURS PRN, Starting on Sun07/03/24 at 2045, Until Iraida 07/03/24 at 1545, Mild Pain 1-3, Routine indocyanine green (IC-GREEN) injection PRN, Starting on Sun07/02/24 at 1605, Until Sun07/02/24 at 1903, Routine, Intraprocedure Given 07/02/2024 16:05 EST 6 mL ketOROLAC (TORADOL) injection 15 mg 15 mg, intravenous, EVERY 6 HOURS, 4 doses, First dose on Sun07/03/24 at 0000, Last dose on Sun07/03/24 at 1445, Routine Given 07/03/2024 8:42 EST 15 m g Given 07/03/2024 0:07 EST 15 mg metronidazole (FLAGYL) infusion 500 mg 500 mg, intravenous, Administer over 30 Minutes, PRE-OP ONCE, 1 dose, On Sun07/02/24 at 1230, Type of Therapy: Prophylaxis, Suspected Indication (Select all that apply): Colorectal surgery, Routine, Preprocedure Given 07/02/2024 15:10 EST 500 mg ondansetron (PF) (ZOFRAN) injection 4 mg 4 mg, intravenous, EVERY 6 HOURS PRN, Starting on Sun07/02/24 at 2021, Until Iraida 07/03/24 at 1545, Nausea, Vomiting, Routine ondansetron (ZOFRAN-ODT) disintegrating tablet 4 mg 4 mg, oral, EVERY 6 HOURS PRN, Starting on Sun07/02/24 at 2021, Until Iraida 07/03/24 at 1545, Nausea, Routine sodium chloride 0.9 % irrigation PRN, Starting on Sun07/02/24 at 1623, Until Sun07/02/24 at 1824, Routine, Intraprocedure Given 07/02/2024 16:23 EST 1,000 mL Abdom en sterile water (bottle) irrigation PRN, Starting on Sun07/02/24 at 1623, Until Sun07/02/24 at 1824, Intraprocedure Given 07/02/2024 17:22 EST 500 mL Other Given 07/02/2024 16:23 EST 500 mL Othe r documented in this encounter Discontinued Medications Medication Sig Discontinue Reason Start Date End Da te acetaminophen (TYLENOL) 500 mg tablet Take 1 Tablet by mouth every 6 hours as needed for Pain. 07/03/2024 documented as of this encounter Historical Medications * This list may reflect changes made after this encounter. acetaminophen (TYLENOL) 500 mg tablet Take 1 Tablet by mouth every 6 hours as needed for Pain. 07/03/2024 added in this encounter Active and Recently Administered Medications Times are shown in EST. Scheduled Medication Order 07/01/2024 07/02/2024 07/03/2024 acetaminophen (TYLENOL) tablet 650 mg 650 mg, oral, EVERY 4 HOURS, First dose on Sun07/02/24 at 2200, Until Discontinued, Routine 2112 (Given - Provider: Anamaria Mejía RN) 0350 (Given - Provider: Anamaria Mejía RN)0835 (Given - Provider: Srikanth Begum RN)1200 (Canceled Entry - Provider: Batch Job User Admin - Comment: Automatically canceled at discontinue of medication order) ceFAZolin (ANCEF) syringe 2 g (COMPLETED) 2 g, intravenous, Administer over 5 Minutes, PRE-OP ONCE, 1 dose, On Sun07/02/24 at 1230, Routine, Preprocedure 1532 (Given - Provider: DAVINA Steen) citalopram (CELEXA) tablet 20 mg 20 mg, oral, DAILY, First dose on Sun07/03/24 at 0900, Until Discontinued, Routine 0835 (Given - Provid er: Srikanth Begum RN) docusate sodium (COLACE) capsule 100 mg 100 mg, oral, 2 TIMES DAILY, First dose on Sun07/02/24 at 2100, Until Discontinued, Routine 2113 (Given - Provider: Anamaria Mejía RN) 0835 (Given - Provider: Srikanth Begum RN) enoxaparin (LOVENOX) injection 40 mg 40 mg, subcutaneous, DAILY, First dose on Sun07/03/24 at 0900, Until Discontinued, Routine 0917 (Given - Provid er: Ibis Muir) enoxaparin teaching kit 1 Each (COMPLETED) 1 Each, other, NOW X1, 1 dose, On Sun07/03/24 at 0745, Routine 0927 (Given - Provid er: Ibis Muir) heparin injection 5,000 Units (COMPLETED) 5,000 Units, subcutaneous, PRE-OP ONCE, 1 dose, On Sun07/02/24 at 1230, Routine, Preprocedure 1509 (Given - Provider: Corrie Carrasco RN) ketOROLAC (TORADOL) injection 15 mg(Linked Group 1) 15 mg, intravenous, EVERY 6 HOURS, 4 doses, First dose on Sun07/03/24 at 0000, Last dose on Sun07/03/24 at 1445, Routine 0007 (Given - Provid er: Anamaria Mejía RN)0630 (Not Given - Provider: Anamaria Mejía RN - Reason: Patient/family refused - Comment: pain acceptable)0842 (Given - Provider: Srikanth Begum RN)1445 (Canceled Entry - Provider: Batch Job User Admin - Comment: Automatically canceled at discontinue of medication order) metronidazole (FLAGYL) infusion 500 mg (COMPLETED) 500 mg, intravenous, Administer over 30 Minutes, PRE-OP ONCE, 1 dose, On Sun07/02/24 at 1230, Type of Therapy: Prophylaxis, Suspected Indication (Select all that apply): Colorectal surgery, Routine, Preprocedure 1510 (Given - Provider: Corrie Carrasco RN) PRN Medication Order 07/01/2024 07/02/2024 07/03/2024 BUPivacaine (PF) (MARCAINE) 0.25 % (2.5 mg/mL) injection (CANCELED) PRN, Starting on Sun07/02/24 at 1800, Until Sun07/02/24 at 1824, Routine, Intraprocedure 1800 (Given - Provider: Darci Bansal MD) chlorhexidine gluconate 2 % cloth 1 Each (COMPLETED) 1 Each, topical, PRN, 1 dose, Starting on Sun07/02/24 at 1204, Until Sun07/02/24 at 1233, Other, PRN dose to be used if the patient did not apply first dose of chlorhexidine prior to arrival, Routine, Preprocedure 1233 (Given - Provider: Maxwell Farr RN) diphenhydrAMINE (BENADRYL) capsule 25 mg(Linked Group 2) 25 mg, oral, EVERY 6 HOURS PRN, Starting on Sun07/02/24 at 202, Until Iraida 07/03/24 at 1545, Itching, Routine diphenhydrAMINE (BENADRYL) injection 25 mg(Linked Group 2) 25 mg, intravenous, EVERY 6 HOURS PRN, Starting on Sun07/02/24 at 2020, Until Iraida 07/03/24 at 1545, Itching, Routine HYDROmorphone (DILAUDID) tablet 2-4 mg (CANCELED) 2-4 mg, oral, EVERY 30 MINUTES PRN, 2 doses, Starting on Sun07/02/24 at 1817, Until Sun07/02/24 at 2004, Pain, Routine, Recovery (only) 1846 (Given - Provider: Sampson Pollard RN) HYDROmorphone (DILAUDID) tablet 2-4 mg(Linked Group 3) 2-4 mg, oral, EVERY 4 HOURS PRN, Starting on Sun07/02/24 at 202, Until Iraida 07/03/24 at 1545, Pain, Routine HYDROmorphone (PF) (DILAUDID) 0.5 mg/0.5 mL syringe 0.3-0.6 mg(Linked Group 3) 0.3-0.6 mg, intravenous, EVERY 3 HOURS PRN, Starting on Sun07/02/24 at 202, Until Sun07/03/24 at 1545, Pain, Routine ibuprofen (MOTRIN) tablet 600 mg(Linked Group 1) 600 mg, oral, EVERY 6 HOURS PRN, Starting on Sun07/03/24 at 2045, Until Sun07/03/24 at 1545, Mild Pain 1-3, Routine indocyanine green (IC-GREEN) injection (CANCELED) PRN, Starting on Sun07/02/24 at 1605, Until Sun07/02/24 at 1903, Routine, Intraprocedure 1605 (Given - Provider: Darci Bansal MD - Comment: mixed in 20cc of injectable sterile water) ondansetron (PF) (ZOFRAN) injection 4 mg(Linked Group 4) 4 mg, intravenous, EVERY 6 HOURS PRN, Starting on Sun07/02/24 at 202, Until Sun07/03/24 at 1545, Nausea, Vomiting, Routine ondansetron (ZOFRAN-ODT) disintegrating tablet 4 mg(Linked Group 4) 4 mg, oral, EVERY 6 HOURS PRN, Starting on Sun07/02/24 at 202, Until Iraida 07/03/24 at 1545, Nausea, Routine promethazine (PHENERGAN) tablet 12.5 mg 12.5 mg, oral, EVERY 6 HOURS PRN, Starting on Sun07/02/24 at 202, Until Sun07/03/24 at 1545, Nausea, Routine sodium chloride 0.9 % irrigation (CANCELED) PRN, Starting on Sun07/02/24 at 1623, Until Sun07/02/24 at 1824, Routine, Intraprocedure 1623 (Given - Provider: Darci Bansal MD - Comment: to [employer] irrigation system) sterile water (bottle) irrigation (CANCELED) PRN, Starting on Sun07/02/24 at 1623, Until Sun07/02/24 at 1824, Intraprocedure 1623 (Given - Provider: Yamile Mcclelland RN - Comment: clean instruments)1722 (Given - Provider: Marianna Bansal MD - Comment: to ruddy dovegatpoppy for prn use per dr. bansal's request) Linked Groups Order Group 1: ketOROLAC (TORADOL) injection 15 mgJump to med 15 mg, intravenous, EVERY 6 HOURS, 4 doses, First dose on Sun07/03/24 at 0000, Last dose on Sun07/03/24 at 1445, Routine Followed by ibuprofen (MOTRIN) tablet 600 mgJump to med 600 mg, oral, EVERY 6 HOURS PRN, Starting on Sun07/03/24 at 2045, Until Sun07/03/24 at 1545, Mild Pain 1-3, Routine Group 2: diphenhydrAMINE (BENADRYL) capsule 25 mgJump to med 25 mg, oral, EVERY 6 HOURS PRN, Starting on Sun07/02/24 at 2020, Until Sun07/03/24 at 1545, Itching, Routine Or diphenhydrAMINE (BENADRYL) injection 25 mgJump to med 25 mg, intravenous, EVERY 6 HOURS PRN, Starting on Sun07/02/24 at 2020, Until Sun07/03/24 at 1545, Itching, Routine Group 3: HYDROmorphone (PF) (DILAUDID) 0.5 mg/0.5 mL syringe 0.3-0.6 mgJump to med 0.3-0.6 mg, intravenous, EVERY 3 HOURS PRN, Starting on Sun07/02/24 at 2020, Until Sun07/03/24 at 1545, Pain, Routine Or HYDROmorphone (DILAUDID) tablet 2-4 mgJump to med 2-4 mg, oral, EVERY 4 HOURS PRN, Starting on Sun07/02/24 at 2020, Until Sun07/03/24 at 1545, Pain, Routine Group 4: ondansetron (PF) (ZOFRAN) injection 4 mgJump to med 4 mg, intravenous, EVERY 6 HOURS PRN, Starting on Sun07/02/24 at 2020, Until Sun07/03/24 at 1545, Nausea, Vomiting, Routine Or ondansetron (ZOFRAN-ODT) disintegrating tablet 4 mgJump to med 4 mg, oral, EVERY 6 HOURS PRN, Starting on Sun07/02/24 at 2021, Until Iraida 07/03/24 at 1545, Nausea, Routine documented in this encounter Orders Medications Ordered That João ht Not Have Been Administered Count Last Ordered Date First Ordered Date atropine 0.1 mg/mL syringe 0.5 mg 1 ceFAZolin (ANCEF) syringe 2 g 1 07/02/2024 chlorhexidine gluconate 2 % cloth 1 Each 1 07/02/2024 diphenhydrAMINE (BENADRYL) capsule 25 mg 1 07/02/2024 diphenhydrAMINE (BENADRYL) i njection 12.5 mg 1 07/02/2024 diphenhydrAMINE (BENADRYL) injection 25 mg 1 07/02/2024 fentaNYL citrate (PF) injection 25-50 mcg 1 07/02/2024 HYDROmorphone (DILAUDID) tablet 2-4 mg 1 HYDROmorphone (PF) (DILAUDID ) 0.5 mg/0.5 mL syringe 0.3-0.5 mg 1 07/02/2024 HYDROmorphone (PF) (DILAUDID ) 0.5 mg/0.5 mL syringe 0.3-0.6 mg 1 07/02/2024 ibuprofen (MOTRIN) tablet 600 mg 1 07/02/20 lidocaine (PF) 10 mg/mL (1 % ) injection 2 mg 1 07/02/2024 metoclopramide (REGLAN) injection 10 mg 1 1 09/01/2023 naloxone (NARCAN) injection 0.2 mg 1 2023 ondansetron (PF) (ZOFRAN) injection 4 mg 2 07/02/2024 ondansetron (ZOFRAN-ODT) dis integrating tablet 4 mg 1 07/02/2024 promethazine (PHENERGAN) tablet 12.5 mg 1 1 09/01/2023 Diet Count Last Ordered Date First Orde red Date DISCHARGE DIET 1 07/03/2024 Nursing Count Last Ordered Date First Orde red Date WOUND CARE INSTRUCTIONS 1 07/03/2024 Discharge Count Last Ordered Date First Orde red Date DISCHARGE PATIENT 1 07/03/2024 documented in this encounter Care Teams Firmware Architect Relationship Specialty Start Date End Date Rena Flower PA [address] [place] [address] [place] [id number] PCP - General Internal Medicine - Primary Care 06/24/24 documented as of this encounter
--- OUTSIDE RECORDS SUMMARY | 2024-09-08 15:03 | XMS_ITS | Encounter Summary ---
Author Organization [facility] Address [address] [place] [address] Care Team Providers Care Facilities Assistant Name Role Phone Unknown, Provider MD Primary Care Provider Unava ilable Reason for Visit * Reason Onset Date Comments Coordination Of Care 05/28/2024 Encounter Details Date Type Department Care Team (Late st Contact Info) Description 05/28/2024 Telephone [facility] OBGYN Services - [address] [id number] Marianna Bansal MD [address] [facility], [address] [place] [phone] Coordination Of Care Social History Tobacco Use Types Packs/Day Years Used Date Smoking Tobacco: Never Assessed Comments No Sex and Gender Information Value Date Recorded Sex Assigned at Female 07/02/2024 11:19 EST Legal Sex Female 18:15 EST Gender Identity Female 06/24/2024 17:31 EST Sexual Orientation Not on file documented as of this encounter Miscellaneous Notes * Telephone Encounter - Maria D Rao - 05/28/2024 1649 EDT Fax sent to referring provider with consult note attached. * Telephone Encounter - Nguyen Paredes - 05/28/2024 1511 EDT TC from referring office (Rena Flower), checking on status of referral. Requested consult notes from yesterday, there are 2 separate encounters from nursing. When Dr. Bansal's notes are complete please print + fax to: [phone] documented in this encounter Plan of Treatment Not on file documented as of this encounter Visit Diagnoses Not on filedocumented in this encounter Care Teams Facilities Assistant Relationship Specialty Start Date End Date Unknown, Provider, PCP - General 07/05/11 06/23/24 documented as of this encounter
--- OUTSIDE RECORDS SUMMARY | 2024-09-08 15:03 | XMS_ITS | Encounter Summary ---
Author Organization [facility] Address [address] [place] [address] Care Team Providers Care Registered Nurses Name Role Phone Unknown, Provider Primary Care Provider Unava ilable Encounter Details Date Type Department Care Team (Late st Contact Info) Description 10/30/[address] [facility] Services - [facility] [place] [address] [place], [place] [id number] Zoran White MD Social History Tobacco Use Types Packs/Day Years Used Date Smoking Tobacco: Never Assessed Comments Unknown Sex and Gender Information Value Date Recorded Sex Assigned at Female 07/02/2024 11:19 EST Legal Sex Female 18:15 EST Gender Identity Female 06/24/2024 17:31 EST Sexual Orientation Not on file documented as of this encounter Plan of Treatment Not on file documented as of this encounter Procedures Procedure Name Priority Date/Time Associated Diagnosis Comments PAP TEST- RESULT ONLY Routine 10/30/2011 0:00 EDT documented in this encounter Results * PAP TEST- RESULT ONLY (10/30/2011 0:00 EDT) Pathology Report: CYTOPATHOLOGY REPORT Reports generated via electronic interface contain original data; however they are lacking the format of the original report. Caution should be taken when reading/interpreti ng unformatted reports. Name: ? FATOUMATA AMADOR ? Accession #: ? [id number] ? : ? 1965 (Age: 45) ??F ?Collect Date: ? 10/30/2011 ? Location: ? [facility] ? Receive Date: ? 10/31/2011 ? Provider: ZORAN WHITE MD Copy to: ? Final Report SPECIMEN ADEQUACY ? Satisfactory for Evaluation - transformation zone component present - scant squamous epithelial component secondary to excessive blood GENERAL CATEGORIZATION ? Epithelial Cell Abnormality INTERPRETATION ? Squamous Cell Abnormality - Atypical squamous cells, undetermined significance (ASC-US). EDUCATIONAL NOTES/RECOMMENDATI ONS ? FORMERLY [facility] recommends following the 2006 Consensus Guidelines for the Management of Women with Abnormal Cervical Cancer Screening Tests (JLGTD, 2007;11(4):201-222 ). ??Consensus guidelines are available online at www.ASCCP.org. Previous Gynecologic Pathology: ASC-US HPV: + Other: Additional clinical information: abn pap 06/2011 Specimen/Source: ??Pap Test, Cervix/Endocervix, ThinPrep Imaging System with manual evaluation Document reviewed and electronically signed by: ? DENICE GANDARA MD ? Report ??Date: 11/06/2011 14:56 HPV with Pap Test ? Date Ordered: ? 11/06/2011 ? Status: ?? Signed Out ?Date Complete: ? 2011 ? By: ??System Interface ? Date Reported: ? 2011 ? Interpretation RESULT: Positive for one or more of HPV types 16,18,31,33,35,39, 45, 51,52,56,58,59, or 68. These high/intermediate risk HPV types are associated with some squamous intraepithelial lesions and cervical cancers. Comments Document reviewed and electronically signed by: ? System Interface ? Report date: 2011 By the signature above, the attending physician certifies that he/she has personally conducted a gross and/or microscopic examination of the described specimens and rendered or confirmed the above diagnosis. End of Report [facility] 10/30/2011 10/31/2011 us Zoran White MD PATHOLOGY ORDERABLES Final Res ult [facility] [address] [place] [address] documented in this encounter Visit Diagnoses Not on filedocumented in this encounter Care Teams Registered Nurses Relationship Specialty Start Date End Date Unknown, Provider, PCP - General 07/05/11 06/23/24 documented as of this encounter
--- OUTSIDE RECORDS SUMMARY | 2024-09-08 15:03 | XMS_ITS | Encounter Summary ---
Author Organization [facility] Address [address] [place] [address] Care Team Providers Care Casting Agent Name Role Phone Unavailable Primary Care Provider Unavailabl e Encounter Details Date Type Department Care Team (Late st Contact Info) Description 08/03/2006 Results Only [facility] - [facility] conversion [address] [place] [address] Susana Painter MD [address] [place] [address] Social History Tobacco Use Types Packs/Day Years [...] Procedure Name Priority Date/Time Associated Diagnosis Comments CYTOPATHOLOGY Routine 08/03/2006 0:00 EST documented in this encounter Results * CYTOPATHOLOGY (08/03/2006 0:00 EST) Pathology Report: CYTOPATHOLOGY REPORT Reports generated via electronic interface contain original data; however they are lacking the format of the original report. Caution should be taken when reading/interpreti ng unformatted reports. Name: ? AMADORFLOFATOUMATA D ? Accession #: ? [id number] : ? 1965 (Age: 40) ??F ?Collect Date: ? 08/03/2006 Location: ? [facility] ? Receive Date: ? 08/06/2006 Provider: ?SUSANA PAINTER MD Copy to: ? Specimen/Source: ?ThinPrep Pap Test, Cervix, processed on [employer] ThinPrep Imaging System, with manual evaluation Last Menstrual Period: ? 07/24/06 Previous Gynecologic Pathology: ? Yes: abnormal x 1 Other: ? HPVA - HPV testing requested if ASC-US on the current ThinPrep Pap test. ? SPECIMEN ADEQUACY ? Satisfactory for Evaluation - transformation zone component present GENERAL CATEGORIZATION ? Negative for Intraepithelial Lesion or Malignancy INTERPRETATION ? Reactive cellular changes associated with inflammation present (includes repair). ? Document reviewed and electronically signed by: ? Tamar Raines MD ? Report Date: ??08/15/2006 08:37 End of Report [facility] 08/03/2006 08/06/2006 us Susana Painter MD PATHOLOGY ORDERABLES Final Re sult [facility] [address] [place] [address] documented in this encounter Visit Diagnoses Not on filedocumented in this encounter
--- OUTSIDE RECORDS SUMMARY | 2024-09-08 15:03 | XMS_ITS | Encounter Summary ---
Author Organization [facility] Address [address] [place] [address] Care Team Providers Care Nail Technician Teacher Name Role Phone Unavailable Primary Care Provider Unavailabl e Encounter Details Date Type Department Care Team (Late st Contact Info) Description 12/03/2000 Results Only [facility] - [place] conversion [address] [place] [address] Susana Painter MD [address] [place] [address] Social History Tobacco Use Types [...] Priority Date/Time Associated Diagnosis Comments CYTOPATHOLOGY Routine 12/03/2000 0:00 EDT documented in this encounter Results * CYTOPATHOLOGY (12/03/2000 0:00 EDT) Pathology Report: CYTOPATHOLOGY REPORT Reports generated via electronic interface contain original data; however they are lacking the format of the original report. Caution should be taken when reading/interpreti ng unformatted reports. Name: ? FATOUMATA AMADOR ? Accession #: ? [id number] : ? 1965 (Age: 35) ??F ?Collect Date: ? 12/03/2000 Location: ? [facility] ? Receive Date: ? 12/05/2000 Provider: ?SUSANA PAINTER MD Copy to: ? Specimen/Source: ?ThinPrep Pap Test, Source Not Provided Last Menstrual Period: ? 11/08/00 Previous Gynecologic Pathology: ? Yes ? SPECIMEN ADEQUACY ? Satisfactory for evaluation. GENERAL CATEGORIZATION ? Within Normal Limits ? Document reviewed and electronically signed by: ? Fransico Araujo , ZULAY(ASCP) ? Report Date: ??12/06/2000 15:13 End of Report [facility] 12/03/2000 12/05/2000 us Susana Painter MD PATHOLOGY ORDERABLES Final Re sult [facility] [address] [place] [address] documented in this encounter Visit Diagnoses Not on filedocumented in this encounter
--- OUTSIDE RECORDS SUMMARY | 2024-09-08 15:03 | XMS_ITS | Encounter Summary ---
Author Organization [facility] Address [address] [place] [address] Care Team Providers Care Color Strainer Name Role Phone Unknown, Provider Primary Care Provider Unava ilable Reason for Visit * (Routine/Next Available) - Order Cancelled Specialty Diagnoses / Procedures Referred By Contjuanita t Referred To Contact Procedures CT OUTSIDE IMAGES CHEST Imaging, External Referral ID Status Reason Start Date Expiration Date V isits Requested Visits Authorized [id number] Order Cancelled 07/14/2024 1 1 Encounter Details Date Type Department Care Team (Latest Contact Info) Description 06/11/2024 - 06/11/2024 23:59 EDT Hospital Encounter [facility] Secondary Reads [place] Discharge Disposition: Home or Self Care Social History Tobacco Use Types Packs/Day Years Used Date Smoking Tobacco: Never Assessed Comments No Sex and Gender Information Value Date Recorded Sex Assigned at Female 07/02/2024 11:19 EST Legal Sex Female 18:15 EST Gender Identity Female 06/24/2024 17:31 EST Sexual Orientation Not on file documented as of this encounter Medications at Time of Discharge [...] Take 1 Tablet by mouth daily. omega 1-njf-tmz-fish oil 350 mg-235 mg- 90 mg-597 mg [...] on filedocumented in this encounter Care Teams Color Strainer Relationship Specialty Start Date End Date Unknown, Provider, PCP - General 07/05/11 06/23/24 documented as of this encounter
--- OUTSIDE RECORDS SUMMARY | 2024-09-08 15:03 | XMS_ITS | Encounter Summary ---
Author Organization [facility] Address [address] [place] [address] Care Team Providers Care Skimmer Scoop Operator Name Role Phone Unknown, Provider MD Primary Care Provider Unava ilable Reason for Referral * Radiology Services (Routine/Next Available) - Specialty Report Received Specialty Diagnoses / Procedures Referred By Contac t Referred To Contact Diagnoses Endometrial cancer ([facility]) Procedures XR CHEST 2 VIEWS Dominic Garcia MD [address] [place] [phone] Phone: tel: fax: Referral ID Status Reason Start Date Expiration Date V isits Requested Visits Authorized [id number] Specialty Report Received 05/22/2024 1 1 * Radiology Services (Routine/Next Available) - Specialty Report Received Specialty Diagnoses / Procedures [facility] Referred To Contact Diagnoses Endometrial cancer ([facility]) Procedures CT ABDOMEN PELVIS W CONTRAST Dominic Garcia MD [address] [address] Phone: tel: fax: Referral ID Status Reason Start Date Expiration Date V isits Requested Visits Authorized [id number] Specialty Report Received 05/23/2024 11/19/2024 1 1 Reason for Visit * Reason Onset Date Comments Coordination Of Care 05/22/2024 Encounter Details Date Type Department Care Team (Late st Contact Info) Description 05/22/[address] [facility] Hematology & Oncology - [address] [address] Blanka Bhagat, RN Coordination Of Care Social History Tobacco Use Types Packs/Day Years Used Date Smoking Tobacco: Never Assessed Comments Unknown Sex and Gender Information Value Date Recorded Sex Assigned at Female 07/02/2024 11:19 EST Legal Sex Female 18:15 EST Gender Identity Female 06/24/2024 17:31 EST Sexual Orientation Not on file documented as of this encounter Miscellaneous Notes * Telephone Encounter - Blanka Bhagat RN - 05/26/2024 1624 EDT Call to patient to offer sooner appt d/t a cancellation. CT not yet scheduled but PA has been processed and [facility] is working on scheduling. Plan: CT TBD at [facility] Local Operator onc consult with Dr. Bansal 05/27 at 11:15. Cancel [address] Garcia consult. * Telephone Encounter - Blanka Bhagat RN - 05/22/2024 1619 EDT Date Referred: 05/20/24 Referring Provider: DERIK SHETH Reason for Referral: endometrial cancer FIGO G3 Requested Provider: magaly Biopsy: [id number] Imaging: ultrasound Outside Notes: yan Ham has been referred to be seen at gynecology oncology at [facility] for endometrial cancer. Patient is well informed about current diagnosis and asks appropriate questions. A discussion regarding supportive services has taken place. Patient expresses concern(s) regarding limited phone service during workdays and limited computer ability. Declines my chart but asks we contact her Imtiaz Lewis if unable to reach her directly. Plan: help desk technician onc consult with Dr. Garcia 06/04 at 9 am, CT a/p, cxr at [facility] and labs(cbcd, cmp, A1c, t&s) to be done at [facility]. Daughter in law will attend appointment with her. She lives locally and will offer support. documented in this encounter Plan of Treatment Scheduled Orders Name Type Priority Associated Diagnoses Orde r Schedule CT ABDOMEN PELVIS W CONTRAST Imaging Routine Endometrial cancer ([facility]) Expected: 05/29/2024 (Approximate), Expires: 11/20/2025 XR CHEST 2 VIEWS Imaging Routine Endometrial cancer ([facility]) Expected: 06/05/2024 (Approximate), Expires: 11/20/2025 COMPLETE BLOOD COUNT AND DIFFERENTIAL Lab STAT Endometrial cancer ([facility]) Expected: 06/04/2024, Expires: 05/22/2025 COMPREHENSIVE METABOLIC PANEL (CMP) Lab Routine Endometrial cancer ([facility]) Expected: 06/04/2024 (Approximate), Expires: 05/22/2025 HEMOGLOBIN A1C Lab Routine Endometrial cancer ([facility]) Expected: 06/04/2024 (Approximate), Expires: 05/22/2025 TYPE AND SCREEN Blood Bank Routine Endometrial cancer ([facility]) Expected: 06/04/2024 (Approximate), Expires: 05/22/2025 documented as of this encounter Visit Diagnoses Diagnosis Endometrial cancer ([facility])- Primary Malignant neoplasm of corpus uteri, except isthmus documented in this encounter Care Teams Skimmer Scoop Operator Relationship Specialty Start Date End Date Unknown, Provider, PCP - General 07/05/11 06/23/24 documented as of this encounter
--- OUTSIDE RECORDS SUMMARY | 2024-09-08 15:03 | XMS_ITS | Encounter Summary ---
Author Organization [facility] Address [address] [place] [address] Care Team Providers Care Airline Pilot/First Officer Name Role Phone Unknown, Provider MD Primary Care Provider Unava ilable Encounter Details Date Type Department Care Team (Late st Contact Info) Description 05/27/2024 Abstract [facility] OBGYN Services - [address] [phone] Marianna Bansal MD [address] [place] [address], [address] [place] [phone] Social History Tobacco Use Types Packs/Day Years [...] on filedocumented in this encounter Care Teams Airline Pilot/First Officer Relationship Specialty Start Date End Date Unknown, Provider, PCP - General 07/05/11 06/23/24 documented as of this encounter
--- OUTSIDE RECORDS SUMMARY | 2024-09-08 15:03 | XMS_ITS | Encounter Summary ---
Author Organization [facility] Address [address] [place] [address] Care Team Providers Care Workers Compensation Claims Supervisor Name Role Phone Unavailable Primary Care Provider Unavailabl e Encounter Details Date Type Department Care Team (Late st Contact Info) Description 04/16/2000 Results Only [facility] - [place] conversion [address] [place] [address] Susana Painter MD [address] [place] [address] Social History Tobacco Use Types [...] Priority Date/Time Associated Diagnosis Comments CYTOPATHOLOGY Routine 04/16/2000 0:00 EDT documented in this encounter Results * CYTOPATHOLOGY (04/16/2000 0:00 EDT) Pathology Report: CYTOPATHOLOGY REPORT Reports generated via electronic interface contain original data; however they are lacking the format of the original report. Caution should be taken when reading/interpreti ng unformatted reports. Name: ? FATOUMATA AMADOR ? Accession #: ? [id number] : ? 1965 (Age: 34) ??F ?Collect Date: ? 04/16/2000 Location: ? [facility] ? Receive Date: ? 04/19/2000 Provider: ?SUSANA PAINTER MD Copy to: ? Specimen/Source: ?Conventional Pap Test, Vag/Cx/Endo Last Menstrual Period: ? 04/02/00 ? SPECIMEN ADEQUACY ? Satisfactory for evaluation but limited by obscuring inflammation. GENERAL CATEGORIZATION ? Within Normal Limits ? Document reviewed and electronically signed by: ? ZULAY Silva(ASCP) ? Report Date: ??04/24/2000 09:56 End of Report [facility] 04/16/2000 04/19/2000 us Susana Painter MD PATHOLOGY ORDERABLES Final Re sult [facility] [address] [place] [address] documented in this encounter Visit Diagnoses Not on filedocumented in this encounter
--- OUTSIDE RECORDS SUMMARY | 2024-09-08 15:03 | XMS_ITS | Encounter Summary ---
Author Organization [facility] Address [address] [place] [address] Care Team Providers Care It Systems Administrator Name Role Phone Unknown, Provider Primary Care Provider Rena Bernstein Primary Care Provider + Encounter Details Date Type Department Care Team (Late st Contact Info) Description 05/14/2024 Lab Requisition [facility] Pathology & Laboratory Medicine - [address] [address] Susana Grey MD [address] [place] [address] [place] [phone] Encounter for other general examination Social History Tobacco Use Types Packs/Day Years [...] Priority Date/Time Associated Diagnosis Comments SURGICAL PATHOLOGY Today 05/14/2024 10 :00 EDT Encounter for other general examination documented in this encounter Results * SURGICAL PATHOLOGY (05/14/2024 10:00 EDT) Note to Patient The following pathology results have been interpreted by your pathologist and may be available to you before your health provider has had the opportunity to review them. Please allow time for your provider to receive these results and explore management options, if applicable. 4 11:09 [facility] Final Diagnosis A. ENDOMETRIUM, BIOPSY: - Endometrial carcinoma, high-grade. See comment 4 11:09 [facility] Diagnosis Comment Histologic sections show a poorly differentiated carcinoma in a sheet-like growth pattern. No overt gland formation is appreciated, but focal dyskeratotic cells [...] the possibility of a POLE-mutated carcinoma (PMID: [id number]). Further evaluation may help inform molecular tumor classification, and can be pursued upon request. Double Corner Cutter slides of this case were reviewed at the intradepartmental consultation conference. Immunoperoxidase stains were performed on this case to further characterize the lesion. ANTIBODY(CLONE)(BLOCK) :RESULT Keratin AE1-AE3 (AE1-AE3, Leica Biosystems) (A1): Positive PAX-8 (MRQ-50, Wedron) (A1): Positive P63 (4A4, Biocare) (A1): Negative P-53 (DO-7, Leica) (A1): Wild-type expression pattern with very focal increased expression Desmin (DE-R-11, Leica) (A1): Positive in intervening muscle fibers, negative in lesional tissue Smooth Muscle Actin (1A4, Cell Brain). (A1): Positive in intervening muscle fibers, negative in lesional tissue Estrogen Receptor (SP1, Thermo Scientific) (A1): Negative P16 (E6H4TM, Wedron) (A1): Patchy positive areas; negative for block-like expression Ki67 (MIB-1) (K2, Leica) (A1): Increased in lesional tissue RESULTS OF IMMUNOHISTOCHEMICAL STAINING FOR MMR PROTEINS: Retained expression of MLH1, PMS2, MSH2 and MSH6 INTERPRETATION: These results are indicative of normal DNA mismatch repair function within the tumor. This patient most likely does not have Ahmadi syndrome. However, it is important to note that 3-10% of Ahmadi syndrome patients may reveal retained expression of mismatch repair proteins due to mutation in other genes. Hence these findings should be interpreted in the context of family and clinical history. If results do not match clinicopathologic findings, molecular testing (specifically microsatellite instability by PCR) can be ordered upon obtaining preauthorization or an advanced beneficiary notice. MLH1 (M1, Wedron) (block A1): Retained expression in tumor PMS2 (EP51, Leica) (block A1): Retained expression in tumor MSH2 (R602-0965, Wedron) (block A1): Retained expression in tumor MSH6 (SP93, Wedron) (block A1): Retained expression in tumor Internal controls: Adequate NOTE: One or more of the reagents [...] performance characteristics have been determined by [facility] and/or by the referring laboratory. The [...] to perform high complexity clinical laboratory testing. 4 11:09 [facility] Attestation There was significan t resident/fellow involvement in the diagnostic evaluation of this case. By the signature below, the attending physician certifies that they have personally conducted a gross and/or microscopic examination of the described specimens and rendered or confirmed the above diagnosis. 4 11:09 [facility] at 1109 Microscopic Description RESULTS OF IMMUNOHISTOCHEMICAL STAINING: Retained expression of MLH1, PMS2, MSH2 and MSH6 INTERPRETATION: These results are indicative of normal DNA mismatch repair function within the tumor. This patient most likely does not have Ahmadi syndrome. However, it is important to note that 3-10% of Ahmadi syndrome patients may reveal retained expression of mismatch repair proteins due to mutation in other genes. Hence these findings should be interpreted in the context of family and clinical history. If results do not match clinicopathologic findings, molecular testing (specifically microsatellite instability by PCR) can be ordered upon obtaining preauthorization or an advanced beneficiary notice. 4 11:09 [facility] Clinical History PMB, thickened endometrium w/ mass 4 11:09 [facility] Gross Description A. Received in formalin labelled with proper patient identification (initials G, L) and endometrium is an aggregate of soft todd-pink tissue dark brown blood clot and a scant amount of viscous clear material (1.4 x 1.3 x 0.4 cm). The specimen is submitted entirely in A1-A2. Néstor Lara 05/14/2024 17:29 4 11:09 [facility] Resident/Fell ow: Yeni Sanders MD 4 11:09 [facility] Performing Lab [facility] 4 11:09 [facility] Scanned Images 4 11:09 [facility] Tissue ENDOMETRIAL STRUCTURE / Unknown 05/14/2024 10:00 EDT 05/14/2024 17:13 EDT us Susana Gery MD PATHOLOGY ORDERABLES Final R esult [facility] [address] [place] [address] documented in this encounter Visit Diagnoses Diagnosis Encounter for other general examination documented in this encounter Care Teams It Systems Administrator Relationship Specialty Start Date End Date Unknown, Provider, PCP - General 07/05/11 06/23/24 Rena Flower PA [address] [place] [address] [place] [phone] PCP - General Internal Medicine - Primary Care 06/24/24 documented as of this encounter
--- OUTSIDE RECORDS SUMMARY | 2024-09-08 15:03 | XMS_ITS | Encounter Summary ---
Author Organization [facility] Address [address] [place] [address] Care Team Providers Care Windows Security Engineer Name Role Phone Unavailable Primary Care Provider Unavailabl e Encounter Details Date Type Department Care Team (Late st Contact Info) Description 04/02/2009 Orders Only [facility] Laboratory Services - [facility] ([facility] [address], [place] [id number] Renny Nina MD [address] [place] [phone] Social History Tobacco Use Types Packs/Day Years [...] Procedure Name Priority Date/Time Associated Diagnosis Comments HPV DETECTION, HIGH RISK TYPES Routine 04/02/2009 16:17 EDT CYTOPATHOLOGY Routine 04/02/2009 0:00 EDT documented in this encounter Results * HUMAN PAPILLOMA VIRUS DNA TEST (04/02/2009 16:17 EDT) Specimen Description Cervix, ThinPrep vial [facility] Result Negative for HPV types 16, 18, 31, 33, 35, 39, 45, 51, 52, 56, 58, 59, and 68. [facility] Report Status Final 04/14/2009 [facility] 04/02/2009 16:1 7 EDT 04/08/2009 15:07 EDT us Renny Nina MD MICROBIOLOGY - GENERAL ORDERABL ES Final Result [facility] [address] [place] [address] * CYTOPATHOLOGY (04/02/2009 0:00 EDT) Pathology Report: CYTOPATHOLOGY REPORT ? Reports generated via electronic interface contain original data; ? however they are lacking the format of the original report. ? Caution should be taken when reading/interpreti ng unformatted reports. ? Name: ? FATOUMATA AMADOR ? Accession #: ? [id number] ? : ? 1965 (Age: 43) ??F ?Collect Date: ? 04/02/2009 ? Location: ? [facility] ? Receive Date: ? 04/05/2009 ? Provider: ?RENNY L FIDE MD ? Copy to: ? Specimen/Source: ?Pap Test, Cervix/Endocervix, ThinPrep Imaging System ? with manual evaluation ? Last Menstrual Period: ? 7/20/09 ? Other: ? HPVDX - HPV testing requested regardless of diagnosis on current ThinPrep Pap ?? test. ? SPECIMEN ADEQUACY ? Satisfactory for Evaluation ? - transformation zone component present ? GENERAL CATEGORIZATION ? Negative for Intraepithelial Lesion or Malignancy ? Document reviewed and electronically signed by: ? Tanvi Mello, CT(ASCP) ? Report Date: ??04/08/2009 12:20 ? End of Report ? [facility] 04/02/2009 04/05/2009 us Renny Nina MD PATHOLOGY ORDERABLES Final Resu lt [facility] [address] [place] [address] documented in this encounter Visit Diagnoses Not on filedocumented in this encounter
--- OUTSIDE RECORDS SUMMARY | 2024-09-08 15:03 | XMS_ITS | Encounter Summary ---
Author Organization [facility] Address [address] [place] [address] Care Team Providers Care Data Analytics Analyst Name Role Phone Unknown, Provider Primary Care Provider Unava ilable Reason for Visit * Consult, Test and Treat (Routine/Next Available) - Order Cancelled Specialty Diagnoses / Procedures Referred By Everett mendiola Referred To Contact Procedures CT OUTSIDE IMAGES ABDOMEN PELVIS Imaging, External Referral ID Status Reason Start Date Expiration Date V isits Requested Visits Authorized [id number] Order Cancelled 05/30/2024 1 1 Encounter Details Date Type Department Care Team (Latest Contact Info) Description 05/29/2024 - 05/29/2024 23:59 EDT Hospital Encounter [facility] Center Secondary Reads [place] Discharge [...] this encounter Medications at Time of Discharge cholecalciferol, Vitamin D3, 25 mcg (1,000 unit) tablet Take 1 Tablet by mouth daily. citalopram (CELEXA) 20 mg tablet Take 0.5 Tablets by mouth daily. magnesium oxide (MAG-OX) 400 mg (241.3 mg magnesium) tablet Take 1 Tablet by mouth daily. omega 8-zrw-jny-fish oil 350 mg-235 mg- 90 mg-597 mg capsule,delayed release(DR/EC) Take by mouth. VITAMIN B COMPLEX-100 ORAL Take 1 Tablet by mouth daily. 04/16/2024 documented as of this encounter Discharge Disposition Disposition Code Departure Means Destination Home or Self Care documented in this encounter Plan of Treatment Not on file documented as of this encounter Visit Diagnoses Not on filedocumented in this encounter Care Teams Data Analytics Analyst Relationship Specialty Start Date End Date Unknown, Provider, PCP - General 07/05/11 06/23/24 documented as of this encounter
--- OUTSIDE RECORDS SUMMARY | 2024-09-08 15:03 | XMS_ITS | Encounter Summary ---
Author Organization [facility] Address [address] [place] [address] Care Team Providers Care Computer Meteorologist Name Role Phone Rena Flower Primary Care Provider + Reason for Visit * Reason Onset Date Comments Confirmation 07/01/2024 Encounter Details Date Type Department Care Team (Late st Contact Info) Description 07/01/2024 Telephone [facility] OBGYN Services - [facility] [address] [place], [place] [address] Marianna Bansal MD [address] [facility], [address] [place] [phone] Confirmation Social History Tobacco Use Types Packs/Day Years [...] * Telephone Encounter - Radha Kapadia - 07/01/2024 0198 EST Pc to pt to confirm arrival/surgery time. Pt did not answer, LVM. Called pt to confirm their surgery details for 07/02. Check in at 11:45am at registration. No food after midnight and clear nonfat liquids ok until 11:45am per anesthesia protocol due to IV fluid shortage. Confirmed pt has a ride home. No further questions and pt in agreement with plan. documented in this encounter Plan of Treatment Not on file documented as of this encounter Visit Diagnoses Not on filedocumented in this encounter Care Teams Computer Meteorologist Relationship Specialty Start Date End Date Rena Flower PA [address] [place] [address] [place] [phone] PCP - General Internal Medicine - Primary Care 06/24/24 documented as of this encounter
--- OUTSIDE RECORDS SUMMARY | 2024-09-08 15:03 | XMS_ITS | Encounter Summary ---
Author Organization [facility] Address [address] [place] [address] Care Team Providers Care Filament Cutter Name Role Phone Unknown, Provider Primary Care Provider Unava ilable Encounter Details Date Type Department Care Team (Late st Contact Info) Description 07/05/2011 Results Only [facility] Laboratory Services - [facility] ([facility]) [address] [place], [place] [address] Renny Nina MD [facility] [address] [place] [phone] Social History Tobacco Use Types Packs/Day Years [...] Diagnosis Comments PAP TEST- RESULT ONLY Routine 07/05/2011 0:00 EST documented in this encounter Results * PAP TEST- RESULT ONLY (07/05/2011 0:00 EST) Pathology Report: CYTOPATHOLOGY REPORT Reports generated via electronic interface contain original data; however they are lacking the format of the original report. Caution should be taken when reading/interpreti ng unformatted reports. Name: ? FATOUMATA AMADOR ? Accession #: ? [id number] ? : ? 1965 (Age: 45) ??F ?Collect Date: ? 07/05/2011 ? Location: ? [facility] ? Receive Date: ? 07/06/2011 ? Provider: RENNY NINA MD Copy to: ? Final Report SPECIMEN ADEQUACY ? Satisfactory for Evaluation - transformation zone component present GENERAL CATEGORIZATION ? Epithelial Cell Abnormality INTERPRETATION ? Squamous Cell Abnormality - Atypical squamous cells, undetermined significance (ASC-US). Shift in gautam present suggestive of bacterial vaginosis. EDUCATIONAL NOTES/RECOMMENDATI ONS ? [facility] recommends following the 2006 Consensus Guidelines for the Management of Women with Abnormal Cervical Cancer Screening Tests (JLGTD, 2007;11(4):201-222 ). ??Consensus guidelines are available online at www.ASCCP.org. Last Menstural Period: 06/27/2011 Previous Gynecologic Pathology: HPV: + 05/20/2010 Specimen/Source: ??Pap Test, Cervix/Endocervix, ThinPrep Imaging System with manual evaluation Document reviewed and electronically signed by: ? RUBI ROBLES MD ? Report ??Date: 07/14/2011 08:37 HPV with Pap Test ? Date Ordered: ? 07/14/2011 ? Status: ?? Signed Out ?Date Complete: ? 07/18/2011 ? By: ??System Interface ? Date Reported: ? 07/18/2011 ? Interpretation RESULT: Positive for one or more of HPV types 16,18,31,33,35,39, 45, 51,52,56,58,59, or 68. These high/intermediate risk HPV types are associated with some squamous intraepithelial lesions and cervical cancers. Comments Document reviewed and electronically signed by: ? System Interface ? Report date: 07/18/2011 By the signature above, the attending physician certifies that he/she has personally conducted a gross and/or microscopic examination of the described specimens and rendered or confirmed the above diagnosis. End of Report [facility] 07/05/2011 07/06/2011 us Renny Nina MD PATHOLOGY ORDERABLES Final Resu lt [facility] [address] [place] [address] documented in this encounter Visit Diagnoses Not on filedocumented in this encounter Care Teams Filament Cutter Relationship Specialty Start Date End Date Unknown, Provider, PCP - General 07/05/11 06/23/24 documented as of this encounter
--- OUTSIDE RECORDS SUMMARY | 2024-09-08 15:03 | XMS_ITS | Encounter Summary ---
Author Organization [facility] Address [address] [place] [address] Care Team Providers Care Investigator Name Role Phone Unavailable Primary Care Provider Unavailabl e Encounter Details Date Type Department Care Team (Late st Contact Info) Description 06/13/2001 Results Only [facility] [address] [place] [address] Susana Painter MD [address] [place] [phone] Social History Tobacco Use Types [...] Priority Date/Time Associated Diagnosis Comments CYTOPATHOLOGY Routine 06/13/2001 0:00 EDT documented in this encounter Results * CYTOPATHOLOGY (06/13/2001 0:00 EDT) Pathology Report: CYTOPATHOLOGY REPORT Reports generated via electronic interface contain original data; however they are lacking the format of the original report. Caution should be taken when reading/interpreti ng unformatted reports. Name: ? FATOUMATA AMADOR ? Accession #: ? [id number] : ? 1965 (Age: 35) ??F ?Collect Date: ? 06/13/2001 Location: ? [facility] ? Receive Date: ? 06/17/2001 Provider: ?SUSANA PAINTER MD Copy to: ? Specimen/Source: ?ThinPrep Pap Test, Source Not Provided Last Menstrual Period: ? 05/23/01 ? SPECIMEN ADEQUACY ? Satisfactory for evaluation. GENERAL CATEGORIZATION ? Within Normal Limits ? Document reviewed and electronically signed by: ? Jordan Puentes, ZULAY(ASCP) ? Report Date: ??06/19/2001 09:03 End of Report [facility] 06/13/2001 06/17/2001 us Susana Painter MD PATHOLOGY ORDERABLES Final Re sult [facility] [address] [place] [address] documented in this encounter Visit Diagnoses Not on filedocumented in this encounter
--- OUTSIDE RECORDS SUMMARY | 2024-09-08 15:03 | XMS_ITS | Encounter Summary ---
Author Organization [facility] Address [address] [place] [address] Care Team Providers Care Csm Consultant Name Role Phone Unavailable Primary Care Provider Unavailabl e Encounter Details Date Type Department Care Team (Late st Contact Info) Description 11/26/2003 Results Only [facility] [address] [place] [address] Susana Painter MD [address] [place] [phone] Social History Tobacco Use Types [...] Priority Date/Time Associated Diagnosis Comments CYTOPATHOLOGY Routine 11/26/2003 0:00 EDT documented in this encounter Results * CYTOPATHOLOGY (11/26/2003 0:00 EDT) Pathology Report: CYTOPATHOLOGY REPORT Reports generated via electronic interface contain original data; however they are lacking the format of the original report. Caution should be taken when reading/interpreti ng unformatted reports. Name: ? FATOUMATA AMADOR ? Accession #: ? [id number] : ? 1965 (Age: 38) ??F ?Collect Date: ? 11/26/2003 Location: ? [facility] ? Receive Date: ? 11/30/2003 Provider: ?SUSANA PAINTER MD Copy to: ? Specimen/Source: ?ThinPrep Pap Test, Vagina/Cervix/Endo cervix Last Menstrual Period: ? 11/18/03 Other: ? HPVA - HPV testing requested if ASC-US on the current ThinPrep Pap test. ? SPECIMEN ADEQUACY ? Satisfactory for Evaluation - transformation zone component present GENERAL CATEGORIZATION ? Negative for Intraepithelial Lesion or Malignancy ? Document reviewed and electronically signed by: ? ZULAY Hoyos(ASCP) ? Report Date: ??12/02/2003 16:56 End of Report [facility] 11/26/2003 11/30/2003 us uSsana Painter MD PATHOLOGY ORDERABLES Final Re sult [facility] [address] [place] [address] documented in this encounter Visit Diagnoses Not on filedocumented in this encounter
--- OUTSIDE RECORDS SUMMARY | 2024-09-08 15:03 | XMS_ITS | Encounter Summary ---
Author Organization [facility] Address [address] [place] [address] Care Team Providers Care Hedis Specialist Name Role Phone Unknown, Provider Primary Care Provider Unava ilable Reason for Referral * (Routine/Next Available) - Receiving Office to Obtain Authorization Specialty Diagnoses / Procedures Referred By Contac t Referred To Contact Procedures US OUTSIDE IMAGES BODY Imaging, External Referral ID Status Reason Start Date Expiration Date Visits Requested Visits Authorized [id number] Receiving Office to Obtain Authorization 05/20/2024 1 1 Reason for Visit * (Routine/Next Available) - Receiving Office to Obtain Authorization Specialty Diagnoses / Procedures Referred By Contac t Referred To Contact Procedures US OUTSIDE IMAGES BODY Imaging, External Referral ID Status Reason Start Date Expiration Date Visits Requested Visits Authorized [id number] Receiving Office to Obtain Authorization 05/20/2024 1 1 Encounter Details Date Type Department Care Team (Latest Contact Info) Description 05/09/2024 - 05/09/2024 23:[address] [facility] Secondary Reads [place] Discharge Disposition: Home or [...] this encounter Medications at Time of Discharge VITAMIN B COMPLEX-100 ORAL Take 1 Tablet by mouth daily. 04/16/2024 documented as of this encounter Discharge Disposition Disposition Code Departure Means Destination Home or Self Care documented in this encounter Plan of Treatment Not on file documented as of this encounter Procedures Procedure Name Priority Date/Time Associated Diagnosis Comments US OUTSIDE IMAGES BODY Routine 05/09/2024 15:41 EDT documented in this encounter Results * US OUTSIDE IMAGES BODY (05/09/2024 15:41 EDT) Narrative 05/20/2024 15:41 EDT This is a non-reportable exam. us External Imaging IMG OTHER IMAGING ORDERABLES Fi nal Result documented in this encounter Visit Diagnoses Not on filedocumented in this encounter Care Teams Hedis Specialist Relationship Specialty Start Date End Date Unknown, Provider, PCP - General 07/05/11 06/23/24 documented as of this encounter
--- OUTSIDE RECORDS SUMMARY | 2024-09-08 15:03 | XMS_ITS | Encounter Summary ---
Author Organization [facility] Address [address] [place] [id number] Care Team Providers Care Steel Manager Name Role Phone Unknown, Provider MD Primary Care Provider Unava ilable Reason for Referral * Radiology Services (Routine/Next Available) - Closed Specialty Diagnoses / Procedures Referred By Everett mendiola Referred To Contact Diagnoses Endometrial cancer ([facility]) Procedures CT CHEST W CONTRAST Marianna Bansal MD [address] [place] [address] [address] [place] [address] Phone: tel: fax: Referral ID Status Reason Start Date Expiration Date Visits Re quested Visits Authorized [id number] Closed 05/29/2024 11/25/2024 1 1 Reason for Visit * Reason Comments Advice Only Endometrial cancer * Consult (Routine) - Receiving Office to Obtain Authorization Specialty Diagnoses / Procedures Referred By Everett mendiola Referred To Contact Gynecologic Oncology Diagnoses Endometrial adenocarcinoma ([facility]) Rena Flower PA [address] [place] [address] [place] [address] Phone: tel: fax: [facility] - [address] [address] Phone: tel: fax: Referral ID Status Reason Start Date Expiration Date Visits Requested Visits Authorized [id number] Receiving Office to Obtain Authorization 1 1 Encounter Details Date Type Department Care Team (Late st Contact Info) Description 05/27/2024 11:15 EDT Initial consult [facility] - [address] [address] Marianna Bansal MD [address] [facility], [facility], [address] [place] [address] Endometrial cancer ([facility]) (Primary Dx) Social History Tobacco Use Types [...] Sign Reading Time Taken Comments Blood Pressure 140/82 05/27/2024 1112 EDT Pulse - - Temperature - - Respiratory Rate - - Oxygen Saturation - - Inhaled Oxygen Concentration - - Weight 71.3 kg (157 lb 3.2 oz) 05/27/2024 1112 E DT Height 158.8 cm (5' 2.5) 05/27/2024 1112 EDT Body Mass Index 28.29 05/27/2024 1112 EDT documented in this encounter Patient Instructions * Patient Instructions* Cody Coombs RN - 05/27/2024 11:15 EDT Images from the original note were not included. Before you leave today please have the following completed: --Labs, at Outpt lab, level 2 ACC Call Your Surgeon prior to surgery date ([phone]) IF: You become ill before your surgery. You have any new skin problems near the area where your surgery will be (e.g., rash, blister, or infection). You have any questions or concerns. The Week of Surgery You will receive a call from the Pre-anesthesia Testing clinic, which will last ~30 minutes and will review your health history as well as your medications. The pre-screen clinic will instruct you onwhich medications to take the morning of surgery. If you need to reschedule this call, please call [phone]. Drink extra fluids (60-90 oz) every day starting 3-4 days before your surgery. Eat foods high in protein and iron to help replenish your red blood cells. STOP All vitamins and supplements seven (7) days prior to surgery. Including, but not limited to: Flax seed oil, Fish oil, garlic (ok in food), Ginko Biloba and Ginseng. Nonsteroidal anti-inflammatories (NSAIDS) seven (7) days prior to surgery. Including: Ibuprofen, Naproxen, Aleve, Advil, Indomethacin, Ketorolac, Motrin. If you are taking aspirin 81 mg you DO NOT need to stop taking If you are taking Aspirin 325 mg or blood thinning medications, please consult with the prescribingdoctor to determine IF you should discontinue them before surgery. * Acetaminophen (Tylenol) can be taken prior to surgery if needed. * The day OF surgery Fasting - Follow the eating and drinking instructions below: STOP all solid FOODS and fat-containing LIQUIDS (including milk) at midnight the night before surgery. On the day of your procedure, you should only have clear liquids (see ???Acceptable Liquids?? listed below). Stop drinking 4 hours before scheduled time of your procedure to the hospital. NO candy, gum or mints, etc. Acceptable Liquids: DO NOT ADD THICKENERS TO ANY LIQUIDS Water Clear apple juice Clear white grape juice Clear sports drinks / Pedialyte (no protein or coconut water based sports drinks, non-mouth staining flavors, NO RED nor PURPLE) Things to Consider: Safety Infection Prevention: Shower the night before surgery and the morning of surgery. Use the 4% CHG scrub sponges that you received in clinic and follow the instructions that came with them. *After each shower - avoid any personal care products, such as: creams, lotions, powders, deodorants, perfumes/colognes, hairspray, or makeup. Do not shave your surgical site for three (3) days prior to surgery. Protect surgical site from injury such as cuts, bruising or wilson. Ride Home We require you to have a responsible adult drive you home after your surgery, or to accompany you in getting home via taxi or bus. Your family member/ride home should stay at the hospital during the procedure until you are discharged. If your ride can't stay in the hospital, they will still be required to pick you up and assist withsurgical consult, reviewing discharge instructions and picking up medications from the pharmacy. We ask that your ride stay within fifteen (15) minutes of the hospital for rock picker. CPAP/BiPAP Bring your cleaned CPAP/BiPAP machine into preop on the day of your surgery. Be sure to empty the water chamber prior to transport. Nail Irish and Jewelry Remove all fingernail armenian and makeup before surgery. Remove all jewelry including rings and body piercings before coming in for surgery and leave them at home. Glasses and Contacts Wear glasses on the day of surgery. DO NOT wear your contacts in your eyes to the hospital. Dentures Wear dentures on the day of surgery. Bring carrying case with you Hearing Aids Wear hearing aids. Bring carrying case with you. Smoking Stop smoking tobacco and marijuana prior to surgery, as early as possible, with a minimum of 24 hours prior to surgery. Identification Please bring a photo ID, insurance card and any other information needed for your surgery. Arrival General arrival time is two (2) hours prior to your surgery time. Medications Take as directed by the pre-anesthesia team with a small sip of water on day of surgery. Bring list of medications you take on the day of surgery. Note: Leave medications at home. Clothing Wear casual, loose-fitting, and comfortable clothing. We recommend you wear/bring inexpensive clothing on day of surgery (e.g. do not wear silks, etc.). Remember to bring a pillow for the care ride home in case you need to pad your seatbelt. Medical Devices Bring any medical devices that you would normally use during your day. These items include, but are not limited to: insulin pumps, mobility aids, CPAP Valuables Do not bring money to the hospital with you other than what you may need for a co-pay or to purchase prescriptions on the way home. Let the person driving you home hold your money while you are in surgery. Leave jewelry at home. Leave contact lenses at home. Wear your eyeglasses and bring your eye glass case. Leave your valuable items at home. Ask a family member to bring them in after you have been admitted to the inpatient unit if needed. Patient/Family given Preop Contact Numbers appropriate to campus of surgery. For Day of Surgery: [facility] [place]: [phone]. Pre-op toll Free Number . Visitation: Typically, two visitors are allowed in the Preop and Recovery areas. Each area of the hospital may have different visitation guidelines. Post-Operative Constipation Constipation We make the recommended dose of over the counter Miralax in the late afternoon prior to your surgery. Do you have a bowel regime that you are using/that works will for you? Even if you have regular bowel movements prior to having surgery, you are likely to experience post-operative constipation. Exposure to anesthetics and narcotic pain medication, alterations in your diet and fluid intake and reduced physical activity can all contribute to this. We strongly recommend the following to reduce the likelihood of post-operative constipation: Take the recommended dose of qkoa-wtt-nemanta and continue on a daily basis once you are home untilyou are no longer taking RX pain medication and resume having normal bowel movements. Some type of stimulant laxative such as Senokot, Milk of Magnesia, Dulcolax may be needed in addition to Miralax if you continue to experience constipation. Please see the chart to the left. If you are having issues with constipation after trying the above measures, PLEASE call the office for further advice. POST-OPERATIVE PAIN MANAGEMENT Pain after operations is a unique experience for everyone and varies in intensity depending on the invasiveness of the procedure. Well-controlled pain after surgery increases the ability to move and can decrease some post-operative complications. A typical pain medication regimen can include: Tylenol (acetaminophen) 650 mg every 6 hours alternating with Motrin (ibuprofen) 600 mg every 6 hours Example Note: The hospital will discharge you with narcotic pain medication which can be introduced in between these doses to increase acute pain after the initial days following your procedure. Please have your prescription medication card and means of paying for any prescription medication you may be discharged with readily available post- surgery. For your convenience there is a pharmacy located in the main lobby/ LEVEL 3 of the hospital. documented in this encounter Progress Notes * Cody Coombs RN - 05/27/2024 1115 EDT Pre-op and CHG soap instructions reviewed with pt, her jgyituck-vt-vnz and spouse. Pt given education sheets (Robotic assisted hyst and SO) Labs- pt had CBCD, CMP on 04/16/24. T&S and retype need to be ordered as signed and held and drawn in pre-op DOS Does not need any other clearance prior to surgery Pt would like any scheduling calls to go to spouse, Isabella. SC sent to [facility] so she is aware Pt is planning on signing up for MyChart. Encouraged pt to call or MyChart with any further questions or concerns * Marianna Bansal MD - 05/27/2024 1115 EDT Images from the original note were not included. Subjective: ID/CC: Fatoumata Lewis is a 58 y.o. female with a G3, endometrioid adenocarcinoma of the uterus,asked to be seen today in consultation by Dr. Flower. HPI: Presented with PMB, had a PUS with a thickened lining of 2.1cm and possible endometrial mass with invasion into myometrium, normal ovaries bilaterally, and an embx that confirmed G3 endometrioid adenocarcinoma of uterus. OB History No obstetric history on file. Menstrual History: No LMP recorded. Patient is postmenopausal. No past medical history on file. No past surgical history on file. No family history on file. Current Outpatient Medications Medication Sig Dispense Refill cholecalciferol, Vitamin D3, 25 mcg (1,000 unit) tablet Take 1 Tablet by mouth daily. citalopram (CELEXA) 20 mg tablet Take 1 Tablet by mouth daily. magnesium oxide (MAG-OX) 400 mg (241.3 mg magnesium) tablet Take 1 Tablet by mouth daily. omega 3-cgb-ldb-fish oil 350 mg-235 mg- 90 mg-597 mg capsule,delayed release(DR/EC) Take by mouth. VITAMIN B COMPLEX-100 ORAL Take 1 Tablet by mouth daily. Current Facility-Administered Medications Medication Dose Route Frequency Provider Last Rate Last Admin chlorhexidine gluconate 2 % cloth 1 Each 1 Each topical DAILY Marianna Bansal MD No Known Allergies Social History Socioeconomic History Marital status: Single Spouse name: Not on file Number of children: Not on file Years of education: Not on file Highest education level: Not on file Occupational History Not on file Tobacco Use Smoking status: Not on file Smokeless tobacco: Not on file Substance and Sexual Activity Alcohol use: Not on file Drug use: Not on file Sexual activity: Not on file Other Topics Concern Not on file Social History Narrative Not on file Social Determinants of Health Financial Strain: Not on file Food Insecurity: Not on file Transportation Needs: Not on file Physical Activity: Not on file Housing Stability: Not on file Review of Systems A 10 point review of systems was performed and was negative, pertinent positives are listed in the HPI. Objective: BP 140/82 Ht 158.8 cm (62.5) Wt 71.3 kg (157 lb 3.2 oz) BMI 28.29 kg/m?? Head: NC, AT Lungs: BCTA CV: RRR Ext: No C/C/E Labs: Has labs from PCP in March 2024, will obtain Imaging: CT of C/A/P ordered, not done yet, results pending Pathology: A. ENDOMETRIUM, BIOPSY: - Endometrial carcinoma, high-grade. See comment Diagnosis Comment Histologic sections show a poorly [...] the possibility of a POLE-mutated carcinoma (PMID: 77033161). Further evaluation may help inform molecular tumor classification, and can be pursued upon request. Psychology Technician slides of this case were reviewed at the intradepartmental consultation conference. Immunoperoxidase stains were performed on this case to further characterize the lesion. ANTIBODY(CLONE)(BLOCK):RESULT Keratin AE1-AE3 (AE1-AE3, [employer]) (A1): Positive PAX-8 (MRQ-50, [place]) (A1): Positive P63 (4A4, [employer]) (A1): Negative P-53 (DO-7, [employer]) (A1): Wild-type expression pattern with very focal increased expression Desmin (DE-R-11, [employer]) (A1): Positive in intervening muscle fibers, negative in lesional tissue Smooth Muscle Actin (1A4, Cell [employer]). (A1): Positive in intervening muscle fibers, negative in lesional tissue Estrogen Receptor (SP1, [employer]) (A1): Negative P16 (E6H4TM, [place]) (A1): Patchy positive areas; negative for block-like expression Ki67 (MIB-1) (K2, [employer]) (A1): Increased in lesional tissue RESULTS OF IMMUNOHISTOCHEMICAL STAINING FOR MMR PROTEINS: Retained expression of MLH1, PMS2, MSH2 and MSH6 Assessment: Fatoumata Lewis is a 58 y.o. female with a G3, endometrioid adenocarcinoma of the uterus, asked to be seen today in consultation by Dr. Flower. Plan: G3 endometrioid adenocarcinoma. Endometrial adenocarcinoma Counseling: Discussed the diagnosis with the patient including probable stage based on TVUS and biopsy findings. Discussed treatment options and associated rates of cure with the patient: 1. Do nothing, which we do not recommend. 2. Treat with progesterone 3. Treat with radiation 4. Treat surgically. Explained that robot assisted total laparoscopic hysterectomy, bilateral salpingo-oophorectomy, ICG dye and sentinel lymph node dissection would be the recommendation at this time. Risks of surgery outlined including bleeding, infection, injury to surrounding structures, and VTE. Standard post- operative care discussed including plan for post-operative visit, pathology review, vaginal cuff exam, and surveillance schedule. Additionally discussed the possibility of chemo and/or radiation therapy pending final pathology results. Patient is agreeable to accepting bloodproducts if necessary. All patient's questions were answered. Surgical consent and opioid consent signed by patient. Nursing team provided preop education and materials. Informed Consent: Our plan is to move forward to the operating room for robot TLH/BSO/SLND. The patient understands the risks of surgery to include but not be limited to risk of bleeding necessitating a blood transfusion, risk of infection including pneumonia, wound infection or bladder infection, risk of damage to other structures including the bowel, the bladder, ureters, nerves or vessels and the perioperative risk of DVT and PE. She understands by signing the consent form, she agrees to [facility] medical decision making, the proposed surgical procedure and the risks that it entails. She agrees to a blood transfusion if medically necessary. She agrees to the risks of general anesthetic and she releases her tissue to the property of the [facility]. Following this discussion, the patient had ample time to ask questions. All her questions were answered to the best of my ability and she signed an informed consent form. She also signed the [place] form and the [place]. I also reviewed with her the logistics of the surgery, which is a 2-3 hour operation, a same day vs. 1-night hospital stay, a 2-week followup visit for postop and pathology discussion, a 12-week vaginal cuff exam, possible need for chemo and/or radiation. I also reviewed postoperative restrictions, which are to use common sense, no soaking in dirty water, no driving on the opioids, no lifting over 40 pounds and nothing in the vagina for 12 weeks. No douching, tampons or intercourse. Lastly, I reviewed return to work and the options for adjuvant treatment. Again, after this discussion, the patient had ample time to ask questions and all of her questions were answered to the best of my ability. I spent a total of 60 minutes on the date of this encounter meeting with the patient and reviewing documentation/coordinating care as described in the above note. No procedures were performed at the time of the visit. Marianna Bansal MD Addendum. CT results: documented in this encounter Miscellaneous Notes * Addendum Note - Cody Coombs RN - 05/27/2024 1115 EDTAddended by: CODY COOMBS on: 05/28/2024 16:58 Modules accepted: Orders documented in this encounter Plan of Treatment Scheduled Orders Name Type Priority Associated Diagnoses Orde r Schedule CT CHEST W CONTRAST Imaging Routine Endometrial cancer ([facility]) Expected: 06/28/2024 (Approximate), Expires: 11/26/2025 documented as of this encounter Visit Diagnoses Diagnosis Endometrial cancer (HCC-CMS)- Primary Malignant neoplasm of corpus uteri, except isthmus documented in this encounter Historical Medications * This list may reflect changes made after this encounter. cholecalciferol, Vitamin D3, 25 mcg (1,000 unit) tablet Take 1 Tablet by mouth daily. VITAMIN B COMPLEX-100 ORAL Take 1 Tablet by mouth daily. 04/16/2024 omega 6-jer-rjp-fish oil 350 mg-235 mg- 90 mg-597 mg capsule,delayed release(DR/EC) Take by mouth. magnesium oxide (MAG-OX) 400 mg (241.3 mg magnesium) tablet Take 1 Tablet by mouth daily. citalopram (CELEXA) 20 mg tablet Take 0.5 Tablets by mouth daily. added in this encounter Orders Medications Ordered That João ht Not Have Been Administered Count Last Ordered Date First Ordered Date chlorhexidine gluconate 2 % cloth 1 Each 1 05/27/2024 Case Request Count Last Ordered Date First Orde red Date CASE REQUEST OPERATING ROOM 1 05/28/2024 documented in this encounter Care Teams Steel Manager Relationship Specialty Start Date End Date Unknown, Provider, PCP - General 07/05/11 06/23/24 documented as of this encounter
--- OUTSIDE RECORDS SUMMARY | 2024-09-08 15:03 | XMS_ITS | Encounter Summary ---
Author Organization [facility] Address [address] [place] [address] Care Team Providers Care Nursing Technician Name Role Phone Unavailable Primary Care Provider Unavailabl e Encounter Details Date Type Department Care Team (Late st Contact Info) Description 06/13/2002 Results Only [facility] [address] [place] [address] Susana Painter MD [address] [place] [address] Social History Tobacco Use Types [...] Priority Date/Time Associated Diagnosis Comments CYTOPATHOLOGY Routine 06/13/2002 0:00 EDT documented in this encounter Results * CYTOPATHOLOGY (06/13/2002 0:00 EDT) Pathology Report: CYTOPATHOLOGY REPORT Reports generated via electronic interface contain original data; however they are lacking the format of the original report. Caution should be taken when reading/interpreti ng unformatted reports. Name: ? FATOUMATA AMADOR ? Accession #: ? [id number] : ? 1965 (Age: 36) ??F ?Collect Date: ? 06/13/2002 Location: ? [facility] ? Receive Date: ? 06/16/2002 Provider: ?SUSANA PAINTER MD Copy to: ? Specimen/Source: ?ThinPrep Pap Test, Source Not Provided Last Menstrual Period: ? 05/15/02 Other: ? [facility] - HPV testing requested if ASCUS/KIMI on the current ThinPrep Pap test. ? SPECIMEN ADEQUACY ? Satisfactory for Evaluation - transformation zone component present GENERAL CATEGORIZATION ? Negative for Intraepithelial Lesion or Malignancy ? Document reviewed and electronically signed by: ? JERICA Aviles(ASCP) ? Report Date: ??06/18/2002 13:16 End of Report [facility] 06/13/2002 06/16/2002 us Susana Painter MD PATHOLOGY ORDERABLES Final Re sult [facility] [address] [place] [address] documented in this encounter Visit Diagnoses Not on filedocumented in this encounter
--- OUTSIDE RECORDS SUMMARY | 2024-09-08 15:03 | XMS_ITS | Encounter Summary ---
Author Organization [facility] Address [address] [place] [address] Care Team Providers Care Spike Maker Name Role Phone Unknown, Provider Primary Care Provider Rena Bernstein Primary Care Provider + Encounter Details Date Type Department Care Team (Late st Contact Info) Description 04/16/2024 Lab Requisition [facility] Pathology & Laboratory Medicine - [address] [address] Rena Flower PA [address] [place] [address] [phone] Encounter for other general examination Social History [...] Name Priority Date/Time Associated Diagnosis Comments PAP TEST Today 04/16/2024 8:37 EDT Encounter for other general examination HPV DNA DETECTION WITH GENOTYPING, PCR Today 04/16/2024 8:37 EDT Encounter for other general examination documented in this encounter Results * HPV DNA DETECTION WITH GENOTYPING, PCR (04/16/2024 8:37 EDT) HPV High Risk type 16, PCR Negative Negative 05/05/2024 15:17 EDT [facility] HPV High Risk type 18, PCR Negative Negative 05/05/2024 15:17 [facility] HPV other High Risk types, PCR Negative Negative 05/05/2024 15:17 [facility] Comment: The following Other High Risk HPV types were not detected: ??31,33, 35, 39, 45, 51, 52, 56, 58, 59, 66 and 68. Pap Test CERVIX UTERI STRUCTURE / Unknown 04/16/2024 8:37 EDT 05/02/2024 11:34 EDT Rena GEE MICROBIOLOGY - GENERAL O RDERABLES Final Result [facility] [address] [place] [address] * PAP TEST (04/16/2024 8:37 EDT) Specimens A. Cervix and/or Endocervix , ThinPrep Imaging System with Manual Evaluation 05/05/2024 15:17 [facility] Specimen Adequacy Satisfactory for Evaluation - transformation zone component present Scant squamous epithelial component due to excess blood. 05/05/2024 15:17 [facility] General Categorization Negative for intraepithelial lesion or malignancy 05/05/2024 15:17 [facility] Descriptive Diagnosis Reactive cellular changes associated with inflammation present (includes repair). 05/05/2024 15:17 [facility] Educational Comments An additional slide was prepared and evaluated. 05/05/2024 15:17 [facility] Attestation By the signature below, the attending physician certifies that they have personally conducted a gross and/or microscopic examination of the described specimens and rendered or confirmed the above diagnosis. 05/05/2024 15:17 [facility] at 1517 Clinical History See below 05/05/20 15:17 EDT [facility] Performing Lab [facility] 05/05/2024 15:17 EDT [facility] Scanned Images 05/05/2024 15:17 EDT [facility] HPV High Risk type 16, PCR Negative 05/05/2024 15:17 EDT [facility] HPV High Risk type 18, PCR Negative 05/05/2024 15:17 EDT [facility] HPV Other High Risk Types, PCR Negative The following Other High Risk HPV types were not detected: 31,33, 35, 39, 45, 51, 52, 56, 58, 59, 66 and 68. 05/05/2024 15:17 EDT [facility] Pap Test CERVIX UTERI STRUCTURE / Unknown 04/16/2024 8:37 EDT 04/18/2024 11:55 EDT Rena GEE PATHOLOGY ORDERABLES Fin al Result [facility] [address] [place] [address] documented in this encounter Visit Diagnoses Diagnosis Encounter for other general examination documented in this encounter Care Teams Spike Maker Relationship Specialty Start Date End Date Unknown, Provider, PCP - General 07/05/11 06/23/24 Rena Flower PA [address] [place] [address] [place] [phone] PCP - General Internal Medicine - Primary Care 06/24/24 documented as of this encounter
--- OUTSIDE RECORDS SUMMARY | 2024-09-08 15:03 | XMS_ITS | Encounter Summary ---
Author Organization [facility] Address [address] [place] [address] Care Team Providers Care Rate Analyst Name Role Phone Unknown, Provider Primary Care Provider Unava ilable Encounter Details Date Type Department Care Team (Late st Contact Info) Description 06/21/2012 Results Only [facility] - [facility] ([facility]) [address] [place], [place] [address] Renny Nina MD [facility] [address] [place] [address] [phone] Social History Tobacco Use Types Packs/Day Years [...] Diagnosis Comments PAP TEST- RESULT ONLY Routine 06/21/2012 0:00 EDT documented in this encounter Results * PAP TEST- RESULT ONLY (06/21/2012 0:00 EDT) Pathology Report: CYTOPATHOLOGY REPORT Reports generated via electronic interface contain original data; however they are lacking the format of the original report. Caution should be taken when reading/interpreti ng unformatted reports. Name: ? FATOUMATA AMADOR ? Accession #: ? [id number] ? : ? 1965 (Age: 46) ??F ?Collect Date: ? 06/21/2012 ? Location: ? [facility] ? Receive Date: ? 06/25/2012 ? Provider: RENNY NINA MD Copy to: CHRISTOPHER COSTELLO MD ? Final Report SPECIMEN ADEQUACY ? Satisfactory for Evaluation - transformation zone component present GENERAL CATEGORIZATION ? Negative for Intraepithelial Lesion or Malignancy INTERPRETATION ? Reactive cellular changes associated with inflammation present (includes repair). Shift in gautam present suggestive of bacterial vaginosis. Last Menstural Period: 06/06/12 Previous Gynecologic Pathology: HPV ASC-US: 07/05/11 Treatment History: Miscellaneous treatment: endometrial and endocervical biopsy 02/28 Colposcopy: normal Specimen/Source: ??Pap Test, Cervix/Endocervix, ThinPrep Imaging System with manual evaluation Document reviewed and electronically signed by: ? MIRANDA RETANA MD ? Report ??Date: 07/02/2012 16:46 HPV with Pap Test ? Date Ordered: ? 07/02/2012 ? Status: ?? Signed Out ?Date Complete: ? 07/04/2012 ? By: ??System Interface ? Date Reported: ? 07/04/2012 ? Interpretation RESULT: Negative for HPV. No E6 or E7 mRNA is detected from HPV types 16,18,31,33,35, 39,45,51,52,56,58, 59,66, and 68 by fibreglass lay up worker mediated amplification. Comments Document reviewed and electronically signed by: ? System Interface ? Report date: 07/04/2012 By the signature above, the attending physician certifies that he/she has personally conducted a gross and/or microscopic examination of the described specimens and rendered or confirmed the above diagnosis. End of Report [facility] 06/21/2012 06/25/2012 us Renny Nina MD PATHOLOGY ORDERABLES Final Resu lt [facility] [address] [place] [address] documented in this encounter Visit Diagnoses Not on filedocumented in this encounter Care Teams Rate Analyst Relationship Specialty Start Date End Date Unknown, Provider, PCP - General 07/05/11 06/23/24 documented as of this encounter
--- OUTSIDE RECORDS SUMMARY | 2024-09-08 15:03 | XMS_ITS | Encounter Summary ---
Author Organization [facility] Address [address] [place] [address] Care Team Providers Care Legal Activity Adjudicator Name Role Phone Unknown, Provider Primary Care Provider Unava ilable Encounter Details Date Type Department Care Team (Late st Contact Info) Description 02/08/[address] [facility] Laboratory Services - [facility] ([facility]) [address] [place], [place] [id number] Zoran White MD Social History Tobacco Use [...] Diagnosis Comments PAP TEST- RESULT ONLY Routine 02/08/2012 0:00 EDT documented in this encounter Results * PAP TEST- RESULT ONLY (02/08/2012 0:00 EDT) Pathology Report: CYTOPATHOLOGY REPORT Reports generated via electronic interface contain original data; however they are lacking the format of the original report. Caution should be taken when reading/interpreti ng unformatted reports. Name: ? RANJAN AMADOR ? Accession #: ? [id number] : ? 1965 (Age: 46) ??F ?Collect Date: ? 02/08/2012 Location: ? [facility] ? Receive Date: ? 02/09/2012 Provider: ?ZORAN WHITE MD Copy to: ?SYBIL ELIZALDE MD ? Specimen/Source: ?Pap Test, Cervix/Endocervix, ThinPrep Imaging System with manual evaluation Last Menstrual Period: ? 01/23/2012 Previous Gynecologic Pathology: ? HPV: + 2009 ASC-US: 2010, 2011 Treatment History: ? Colposcopy: 10/2011 ? SPECIMEN ADEQUACY ? Satisfactory for Evaluation - transformation zone component present GENERAL CATEGORIZATION ? Epithelial Cell Abnormality INTERPRETATION ? Squamous Cell Abnormality - Atypical squamous cells, undetermined significance (ASC-US). Shift in gautam present suggestive of bacterial vaginosis. EDUCATIONAL NOTES/RECOMMENDATI ONS ? [facility] recommends following the 2006 Consensus Guidelines for the Management of Women with Abnormal Cervical Cancer Screening Tests (JLGTD, 2007;11(4):201-222 ). ??Consensus guidelines are available online at www.ASCCP.org. ? Document reviewed and electronically signed by: ? JADIEL MAYO MD ? Report Date: ??02/14/2012 16:20 End of Report [facility] 02/08/2012 02/09/2012 us Zoran White MD PATHOLOGY ORDERABLES Final Res ult [facility] [address] [place] [address] documented in this encounter Visit Diagnoses Not on filedocumented in this encounter Care Teams Legal Activity Adjudicator Relationship Specialty Start Date End Date Unknown, Provider, PCP - General 07/05/11 06/23/24 documented as of this encounter
--- OUTSIDE RECORDS SUMMARY | 2024-09-08 15:03 | XMS_ITS | Encounter Summary ---
Author Organization [facility] Address [address] [place] [address] Care Team Providers Care Fourth Hand Name Role Phone Unknown, Provider Primary Care Provider eRna Bernstein Primary Care Provider + Encounter Details Date Type Department Care Team (Late st Contact Info) Description 04/16/2024 Lab Requisition [facility] Pathology & Laboratory Medicine - [address] [id number] Outr Resulting Lab, Provider Social History Tobacco Use Types Packs/Day Years [...] Procedure Name Priority Date/Time Associated Diagnosis Comments FSH Routine 04/16/2024 8:42 EDT documented in this encounter Results * FSH (04/16/2024 8:42 EDT) FSH 110.6 See Note mIU/mL 04/16/2024 23:18 EDT [facility] Blood VENOUS BLOOD / Unknown 04/16/2024 8:42 EDT 04/16/2024 21:51 EDT Narrative [facility] - 04/16/2024 23:18 EDT NOTE: Female FSH Reference Ranges (Menstruating): PHYSIOLOGICAL STATUS ? REFERENCE RANGE ? Follicular (-12 to -4 days): ?? 2.5 - 10.2 mIU/mL Midcycle (-3 to +2 days): ?3.4 - 33.4 mIU/mL Luteal (+4 to +12 days): ? 1.5 - 9.1 mIU/mL Postmenopausal: ?23.0 - 116.3 mIU/mL Reference Ranges for pediatric non-menstruating female patients have not been established. us Provider Outr Resulting Lab CHEMISTRY & BLOOD GA S ORDERABLES Final Result [facility] [address] [place] [address] documented in this encounter Visit Diagnoses Not on filedocumented in this encounter Care Teams Fourth Hand Relationship Specialty Start Date End Date Unknown, Provider, PCP - General 07/05/11 06/23/24 Rena Flower PA [address] [place] [address] [phone] PCP - General Internal Medicine - Primary Care 06/24/24 documented as of this encounter
--- OUTSIDE RECORDS SUMMARY | 2024-09-08 15:03 | XMS_ITS | Encounter Summary ---
Author Organization [facility] Address [address] [place] [address] Care Team Providers Care Organic Lab Worker Name Role Phone Unknown, Provider MD Primary Care Provider Unava ilable Reason for Visit * Reason Onset Date Comments Appointment Related 06/13/2024 Other 06/13/2024 Image Push Encounter Details Date Type Department Care Team (Late st Contact Info) Description 06/13/2024 Telephone [facility] OBGYN Services - [address] [address] Marianna Bansal MD [address] [facility], [address] [place] [address] Appointment Related; Other (Image Push) Social History Tobacco Use Types Packs/Day Years Used Date Smoking Tobacco: Never Assessed Comments No Sex and Gender Information Value Date Recorded Sex Assigned at Female 07/02/2024 11:19 EST Legal Sex Female 18:15 EST Gender Identity Female 06/24/2024 17:31 EST Sexual Orientation Not on file documented as of this encounter Miscellaneous Notes * Telephone Encounter - Maria D Rao - 06/13/2024 5004 EDT Fax sent to [facility] requesting 06/[address] images be pushed to [facility]. * Telephone Encounter - Radha Kapadia - 06/13/2024 9015 EDT Germ Drier called radiology at [facility] to have imaging from 06/11 pushed over to our facility. Spoke with Lyric who asked for us to fax over request as she is by herself today, Lyric statedthat once we fax over request they will send over imaging as soon as they can. documented in this encounter Plan of Treatment Not on file documented as of this encounter Visit Diagnoses Not on filedocumented in this encounter Care Teams Organic Lab Worker Relationship Specialty Start Date End Date Unknown, Provider, PCP - General 07/05/11 06/23/24 documented as of this encounter
--- OUTSIDE RECORDS SUMMARY | 2024-09-08 15:03 | XMS_ITS | Encounter Summary ---
Author Organization [facility] Address [address] [place] [address] Care Team Providers Care Revenue Specialist Name Role Phone Unavailable Primary Care Provider Unavailabl e Encounter Details Date Type Department Care Team (Late st Contact Info) Description 05/20/2010 Results Only [facility] Laboratory Services - [facility] ([facility]) [address] [place], [place] [address] Renny Nina MD [address] [place] [address] [phone] Social History Tobacco Use Types Packs/Day Years [...] Priority Date/Time Associated Diagnosis Comments CYTOPATHOLOGY Routine 05/20/2010 0:00 EDT documented in this encounter Results * CYTOPATHOLOGY (05/20/2010 0:00 EDT) Pathology Report: CYTOPATHOLOGY REPORT ? Reports generated via electronic interface contain original data; ? however they are lacking the format of the original report. ? Caution should be taken when reading/interpreti ng unformatted reports. ? Name: ? MARJORIE, FATOUMATA D ? Accession #: ? [id number] ? : ? 1965 (Age: 44) ??F ?Collect Date: ? 05/20/2010 ? Location: ? [facility] ? Receive Date: ? 05/23/2010 ? Provider: RENNY L FIDE MD ? Copy to: ? Final Report ? SPECIMEN ADEQUACY ? Satisfactory for Evaluation ? - transformation zone component present ? GENERAL CATEGORIZATION ? Negative for Intraepithelial Lesion or Malignancy ? Last Menstural Period: 9/17/10 ? Other: Additional clinical information: WNL X 5 years ? HPVDX - HPV testing requested regardless of diagnosis on current ThinPrep Pap ?? test. ? Specimen/Source: ??Pap Test, Cervix/Endocervix, ThinPrep Imaging System with ? manual evaluation ? Document reviewed and electronically signed by: ? Kenyetta Perkins, [place](ASCP)(IAC) ? Report ??Date: 05/25/2010 17:13 ? HPV with Pap Test ? Date Ordered: ? 05/25/2010 ? Status: ?? Signed Out ?Date Complete: ? 05/31/2010 ? By: ??System Interface ? Date Reported: ? 05/31/2010 ? Interpretation ? RESULT: Positive for one or more of HPV types 16,18,31,33,35,39, 45, ? 51,52,56,58,59, or 68. These high/intermediate risk HPV ? types are associated with dysplasia and some cervical ? cancers. ? Comments ? Document reviewed and electronically signed by: ? System Interface ? Report date: 05/31/2010 ? By the signature above, the attending physician certifies that he/she has ? personally conducted a gross and/or microscopic examination of the described ? specimens and rendered or confirmed the above diagnosis. ? End of Report ? [facility] 05/20/2010 05/23/2010 us Renny Nina MD PATHOLOGY ORDERABLES Final Resu lt [facility] [address] [place] [address] documented in this encounter Visit Diagnoses Not on filedocumented in this encounter
--- OUTSIDE RECORDS SUMMARY | 2024-09-08 15:03 | XMS_ITS | Encounter Summary ---
Author Organization [facility] Address [address] [place] [address] Care Team Providers Care Drafting Teacher Name Role Phone Unknown, Provider Primary Care Provider Unava ilable Encounter Details Date Type Department Care Team (Late st Contact Info) Description 05/01/2019 Results Only [facility] [phone] Rena Flower PA [address] [place] [address] [phone] Social History Tobacco Use Types Packs/Day Years [...] Diagnosis Comments PAP TEST- RESULT ONLY Routine 05/01/2019 0:00 EDT documented in this encounter Results * PAP TEST- RESULT ONLY (05/01/2019 0:00 EDT) Pathology Report: CYTOPATHOLOGY REPORT Reports generated via electronic interface contain original data; however they are lacking the format of the original report. Caution should be taken when reading/interpreti ng unformatted reports. Name: ? FATOUMATA LEWIS ? Accession #: ? [id number] ? : ? 1965 (Age: 53) ??F ?Collect Date: ? 05/01/2019 ? Location: ? [facility] ? Receive Date: ? 05/05/2019 ? Provider: RENA GEE Copy to: ? Final Report SPECIMEN ADEQUACY ? Satisfactory for Evaluation - transformation zone component present GENERAL CATEGORIZATION ? Negative for Intraepithelial Lesion or Malignancy ?? Last Menstrual Period: 02/05 Infection History: Pos for HPV: H/O Specimen/Source: ??Pap Test, Endocervix, ThinPrep Imaging System with manual evaluation Document reviewed and electronically signed by: ? Anna Mcnamara, CT(ASCP) ? Report ??Date: 05/08/2019 08:53 HPV with Pap Test ? Date Ordered: ? 05/08/2019 ? Status: ?? Signed Out ?Date Complete: ? 05/09/2019 ? By: ??System Interface ? Date Reported: ? 05/09/2019 ? Interpretation RESULT: Negative for HPV. No E6 or E7 mRNA is detected from HPV types 16,18,31,33,35, 39,45,51,52,56,58, 59,66, and 68 by stem processing machine operator mediated amplification. Comments Document reviewed and electronically signed by: ? System Interface ? Report date: 05/09/2019 By the signature above, the attending physician certifies that he/she has personally conducted a gross and/or microscopic examination of the described specimens and rendered or confirmed the above diagnosis. End of Report [facility] 05/01/2019 05/05/2019 Rena GEE PATHOLOGY ORDERABLES Deyvi al Result [facility] [address] [place] [address] documented in this encounter Visit Diagnoses Not on filedocumented in this encounter Care Teams Drafting Teacher Relationship Specialty Start Date End Date Unknown, Provider, PCP - General 07/05/11 06/23/24 documented as of this encounter
--- OUTSIDE RECORDS SUMMARY | 2024-09-08 15:03 | XMS_ITS | Encounter Summary ---
Author Organization [facility] Address [address] [place] [address] Care Team Providers Care Observer Gravity Prospecting Name Role Phone Unknown, Provider MD Primary Care Provider Unava ilable Reason for Visit * Reason Onset Date Comments Surgery Scheduling 06/03/2024 Encounter Details Date Type Department Care Team (Late st Contact Info) Description 06/03/2024 Telephone [facility] OBGYN Services - [address] [address] Marianna Bansal MD [address] [facility], [address] [place] [phone] Surgery Scheduling Social History Tobacco Use Types Packs/Day Years Used Date Smoking Tobacco: Never Assessed Comments No Sex and Gender Information Value Date Recorded Sex Assigned at Female 07/02/2024 11:19 EST Legal Sex Female 18:15 EST Gender Identity Female 06/24/2024 17:31 EST Sexual Orientation Not on file documented as of this encounter Miscellaneous Notes * Telephone Encounter - Radha Kapadia - 06/03/2024 1620 EDT Pt's called in inquiring about date for procedure. Pig Breeder offered 07/02, pt's accepted, informed of PAT call the week before and that card writer hand will call the day before to confirm arrival/surgery time. Pt called card writer hand back to confirm that 07/02 DOS works for pt, pt stated that this date was relayed to her by her and that it works for her. Pt informed that Dr. Bansal wanted pt to have a CTC/A/P done, but card writer hand noticed that when they did the CT scan on 05/29 they only did so of the abd/pel but not the chest. Pig Breeder informed pt that card writer hand sent order over to [facility] and that pt should be looking out for call from them in the near future to schedule. Pt informed of PAT call the week before and that card writer hand will call the day before to confirm arrival/surgery time. Pt agrees withplan and has no further questions at this time. documented in this encounter Plan of Treatment Not on file documented as of this encounter Visit Diagnoses Not on filedocumented in this encounter Care Teams Observer Gravity Prospecting Relationship Specialty Start Date End Date Unknown, Provider, PCP - General 07/05/11 06/23/24 documented as of this encounter
--- OUTSIDE RECORDS SUMMARY | 2024-09-08 15:03 | XMS_ITS | Encounter Summary ---
Author Organization [facility] Address [address] [place] [address] Care Team Providers Care Digital Media Coordinator Name Role Phone Unknown, Provider Primary Care Provider Unava ilable Encounter Details Date Type Department Care Team (Late st Contact Info) Description 07/23/2015 Results Only [facility] [phone] Renny Nina MD [address] [place] [address],[address] [place], [place] [address] Social History Tobacco Use Types Packs/Day Years [...] Diagnosis Comments PAP TEST- RESULT ONLY Routine 07/23/2015 0:00 EST documented in this encounter Results * PAP TEST- RESULT ONLY (07/23/2015 0:00 EST) Pathology Report: CYTOPATHOLOGY REPORT Reports generated via electronic interface contain original data; however they are lacking the format of the original report. Caution should be taken when reading/interpreti ng unformatted reports. Name: ? FATOUMATA AMADOR ? Accession #: ? [id number] ? : ? 1965 (Age: 49) ??F ?Collect Date: ? 07/23/2015 ? Location: ? [facility] ? Receive Date: ? 07/26/2015 ? Provider: RENNY NINA MD Copy to: ? Final Report SPECIMEN ADEQUACY ? Satisfactory for Evaluation - transformation zone component absent GENERAL CATEGORIZATION ? Negative for Intraepithelial Lesion or Malignancy ?? Last Menstrual Period: 07/14/15 Hormonal/Contracep tive status: None Previous Gynecologic Pathology: HPV: (+) 06/2011 ASC-US: 06/2011 Specimen/Source: ??Pap Test, Cervix/Endocervix, ThinPrep Imaging System with manual evaluation Document reviewed and electronically signed by: ? ZULAY Mcmanus(ASCP) ? Report ??Date: 07/28/2015 12:52 HPV with Pap Test ? Date Ordered: ? 07/28/2015 ? Status: ?? Signed Out ?Date Complete: ? 07/30/2015 ? By: ??System Interface ? Date Reported: ? 07/30/2015 ? Interpretation RESULT: Negative for HPV. No E6 or E7 mRNA is detected from HPV types 16,18,31,33,35, 39,45,51,52,56,58, 59,66, and 68 by antique refinisher mediated amplification. Comments Document reviewed and electronically signed by: ? System Interface ? Report date: 07/30/2015 By the signature above, the attending physician certifies that he/she has personally conducted a gross and/or microscopic examination of the described specimens and rendered or confirmed the above diagnosis. End of Report [facility] 07/23/2015 07/26/2015 us Renny Nina MD PATHOLOGY ORDERABLES Final Resu lt [facility] [address] [place] [address] documented in this encounter Visit Diagnoses Not on filedocumented in this encounter Care Teams Digital Media Coordinator Relationship Specialty Start Date End Date Unknown, Provider, PCP - General 07/05/11 06/23/24 documented as of this encounter
--- OUTSIDE RECORDS SUMMARY | 2024-09-08 15:03 | XMS_ITS | Encounter Summary ---
Author Organization [facility] Address [address] [place] [id number] Care Team Providers Care Machinist Instructor Name Role Phone Rena Flower Primary Care Provider + Reason for Visit * Auth/Cert (Routine) Specialty Diagnoses / Procedures Referred By Everett mendiola Referred To Contact Diagnoses Endometrial cancer ([facility]) Procedures NJ LAPS TOTAL HYSTERECT 250 GM/< W/RMVL TUBE/OVARY NJ INTRAOP SENTINEL LYMPH NODE ID W/DYE INJECTION NJ LAPS BI TOT PEL LMPHADEC & OSBALDO-AORTIC LYMPH BX 1 NJ LAPAROSCOPY TOT HYSTERECTOMY >250 G W/TUBE/OVAR NJ CYSTOURETHROSCOPY Robotic assisted total laparoscopic hysterectomy, bilateral salpingo-oophorectomy injection of ICG dye bilateral sentinel lymph node dissection. Referral ID Status Reason Start Date Expiration Date Visits Re quested Visits Authorized [id number] 1 1 Encounter Details Date Type Department Care Team (Late st Contact Info) Description 07/02/2024 15:16 EST Anesthesia Event [facility] [place] [facility] [address] [place], [place] [id number] Jett Heller MD [address] [facility], Level [address] [place] [id number] Anesthesia Record Procedure Summary Procedure Name Responsible Anesthesiologist Anesthesia Start Time Anesthesia Stop Time Robotic assisted total laparoscopic hysterectomy, bilateral salpingo-oophorectomy (Bilateral: Abdomen) Jett Heller MD 07/02/24 1516 07/02/24 1832 Events Date Time Event Comment 07/02/2024 1516 An Start The patient was re-evaluated immediately before moderate or deep sedation use, before anesthesia induction, or before the anesthesia procedure. 1516 An Start Data 1528 An Induction The patient was reevaluated immediately before moderate or deep sedation use and before anesthesia induction. 1531 An Intubation 1541 Anesthesia Ready 1551 Primary Handoff Primary Anes thesia Provider relieved. Anesthesia care handoff involved joint review of the surgical site and planned procedure, significant past medical history, intraoperative course including but not limited to airway management, anesthetic maintenance, monitors, IV access, fluid management, and postoperative plan. 1558 Stanley Two small areas of urticaria noted on abdomen by surgical team. Per OBGYN resident, first area was noted after induction but prior to skin prep. 1621 [address] [place] 1814 An Extubation 1824 an stop data 183 Handoff to RN I completed my handoff to the receiving nurse during which we: 1. Identified the patient 2. Identified the responsible provider 3. Reviewed the pertinent medical history 4. Discussed the surgical course 5. Reviewed intra-op anesthesia management and issues during anesthesia 6. Set expectations for post-procedure period 7. Allowed opportunity for questions and acknowledgement of understanding. 183 An Stop Meds Name Total fentanyl citrate (PF) injection 100 mcg HYDROmorphone vial 2 mg/mL 1.4 mg ketAMINE 5 mL prefilled syringe 50 mg midazolam (versed) 1 mg/mL 2 mL vial 2 m g ondansetron (PF) (ZOFRAN) injection 4 mg lidocaine 2% (PF) injection glass vial 6 0 mg propOFol (DIPRIVAN) injection 1,761,717 mcg rocuronium 10 mg/mL vial 100 mg sugammadex 100 mg/mL 2 mL vial 200 mg ceFAZolin (ANCEF) syringe 2 g 2 g diphenhydrAMINE injection 12.5 mg vecuronium 10 mg vial 13 mg acetaminophen 10 mg/ml 100 mL infusion 1 ,000 mg ketOROLAC injection 15 mg lactated ringers (LR) infusion 800 mL * Agents Name Insp Sevoflurane Exp Sevoflurane O2 N2O Air * Blood No blood administrations on file. Lines, Drains, and Airways Type Details Placement Removal Wound Incision (5 sites) 07/02/24 1710 by Sylvia Law RN Wound 07/02/24; 1710; Othe r (colpotomy); Vagina 07/02/24 1710 by Sylvia Law RN Peripheral IV 07/02/24; 1231; 06/21 ; 20; 1.25; B Cardoza Introcan; Anterior, Right; Forearm; Documenting on behalf of someone else (enter name) (IFTIKHAR Denton); 1; None; 2% Chlorhexidine with IPA; 07/03/24; 1324; Discharged; No complications 07/02/24 1231 by Jeannine Aguirre RN 07/03/24 1324 by Ibis Muir Non-Surgical Airway 07/02/24; 1531 (ludivina licea via procedure documentation); Auscultation, Capnometry; 07/02/24; 1814 07/02/24 1531 by Jett Heller MD 07/02/24 1814 by Sho Mojica AA Urethral Catheter 07/02/24; 1610; In O R by ; Intraoperative monitoring; Non-latex; 16 fr; 10 ml; Yes; 07/02/24; 1755; Per protocol 07/02/24 1610 by Dorothy Combs RN 07/02/24 1755 by Sylvia Law RN Wound 07/02/24; 1610; Inci joão; Medial; Umbilicus, Abdomen; 5 trocar incisions; 07/02/24; 1858 07/02/24 1610 by Dorothy Combs RN 07/02/24 1858 by Elizabeth Pollard RN Peripheral IV 07/02/24; 1859; 18; Left, Posterior; Hand; Patient arrived with LDA; 07/03/24; 1324; Discharged; No complications 07/02/24 1859 by Elizabeth Pollard RN 07/03/24 1324 by Ibis Muir documented in this encounter Social History Tobacco Use Types Packs/Day Years Used Date Smoking Tobacco: Former Cigarettes 0.5 10 Smokeless Tobacco: Never Comments:Started and Stopped several times Alcohol Use Standard Drinks/Week Comments Yes 4 (1 standard drink = 0.6 oz pur e alcohol) [facility] Utilities Answer Date Recorded In the past 12 months has [employer], [employer], oil, or water [employer] threatened to shut off services in your [...] money to get more. Never true 07/03/2024 [facility] - Inadequate Housing Answer Date Re corded What is your living situation today? I have a [facility] [place] place to live 07/03/[address] you li ve. Do you have problems with any of the following? None of the above 07/03/2024 [facility] - Transportation Answer Date Record ed In the past 12 months, has l ack of reliable transportation kept you from medical appointments, meetings, work or from getting things needed for daily living? No 07/03/2024 [facility] - Personal Safety Answer Date Recor [...] on file documented as of this encounter OR Notes * Anesthesia Postprocedure Evaluation - Sho Mojica AA - 07/02/2024 1832 EST Patient: Fatoumata Radford Joshua Vital signs were reviewed with the recovery nurse. [facility] Vitals Value Taken Time BP 123/101 07/02/24 1830 Temp 36.4 07/02/24 1832 Resp 2 07/02/24 183 Pulse From Oximetry 85 BPM 07/02/24 1832 SpO2 100 % 07/02/24 183 Heart Rate 83 BPM 07/02/241831 Vitals shown include unfiled device data. Last Pain Score - Numeric Pain Level (Scale 1-10): 2 Type of Anesthesia - general Anesthesia Post Evaluation Post-procedure vitals reviewed and are stable. Level of consciousness: responsive/arousable to verbal stimuli Temperature status: normothermia Respiratory status: airway patent and nasal cannula Cardiovascular status: acceptable Hydration status: adequate Nausea/Vomiting: none Pain management: adequate Post-Op Assessment: patient tolerated procedure well with no complications Patient participation: able to participate Disposition: outpatient/home Anesthesia Complications: No apparent anesthesia complications * Anesthesia Procedure Notes - Jett Heller MD - 07/02/2024 1548 EST Associated Order(s): Airway Airway Date/Time: 07/02/2024 15:31 Urgency: elective General Information and Staff Patient location during procedure: OR Performed: anesthesiologist Performed by: Jett Heller MD Authorized by: Jett Heller MD Indications and Patient Condition Indications for airway [...] teeth Number of attempts at approach: 1 * Anesthesia Preprocedure Evaluation - Jett Heller MD - 07/01/2024 5687 EST Images from the original note were not included. Anesthesia Preprocedure Evaluation Patient Medical History, including Anesthesia History reviewed. Chart and Nursing Notes reviewed, including NPO status and Medication History. Additional ROS/History Findings: 58 y.o. female with presents for robotic TLH-BSO. Appropriately NPO. Able to tolerate >4METS. Consented for GA. No familial history of difficulty with anesthesia. HEENT: no hx of seizures, stroke, or major head injury. Nothing loose, chipped or removable in the mouth CV: denies HTN, denies congenital/structural heart defects, endorses good exercise capacity (able to do two flights of stairs) RESP: no recent coughs, colds, fevers or chills, no SOB, no smoking, no history of asthma GI: no GERD, upset stomach or nausea Hepatobiliary/Renal: Pt denies hx of kidney or liver disease Heme: no hx of clotts in the legs or lungs, no hx of easy bruising. No blood thinners PAH/PSH: No past surgical history on file. No Known Allergies Current Facility-Administered Medications Medication Route Frequency chlorhexidine gluconate 2 % cloth 1 Each topical DAILY Current Outpatient Medications Medication cholecalciferol, Vitamin D3, 25 mcg (1,000 unit) tablet citalopram (CELEXA) 20 mg tablet magnesium oxide (MAG-OX) 400 mg (241.3 mg magnesium) tablet omega 9-exa-nbd-fish oil 350 mg-235 mg- 90 mg-597 mg capsule,delayed release(DR/EC) VITAMIN B COMPLEX-100 ORAL No Known Allergies Review of Systems Constitutional: Negative. Respiratory: Negative. Cardiovascular: Negative. Gastrointestinal: Negative. Past Medical History: Diagnosis Date Back pain 06/25/24 chronic low back Cancer (HCC-CMS) 06/25/24 endometrial cancer, hysterectomy scheduled Claustrophobia Depression 06/25/24 controlled on med Exercise involving walking 06/25/24 walks daily, no issues with stairs Panic attacks Rash 06/25/24 psoriasis on scalp and arm pits, no meds Patient Active Problem List Diagnosis Endometrial cancer (HCC-CMS) Physical Exam Airway Mallampati: II TM distance: >3 FB Neck ROM: full Cardiovascular - normal exam Dental - normal exam Pulmonary - normal exam Abdominal Anesthesia Plan ASA 1 Anesthesia Type - general Anesthesia plan and risks discussed. Informed consent obtained from patient. Specific risks discussed were vomiting, nausea, myocardial infarction, stroke, dental injury and headache. PAT Note Notes from 06/01/24 through 07/01/24 No notes of this type exist for this encounter. documented in this encounter Plan of Treatment Not on file documented as of this encounter Procedures Procedure Name Priority Date/Time Associated Diagnosis Comments ANESTHESIA INTUBATION Routine 07/02/2024 15:31 EST documented in this encounter Results * NJ AN ELECTIVE ENDOTRACHEAL AIRWAY (07/02/2024 15:31 EST) Narrative [facility] POINT OF CARE - 07/02/2024 15:31 EST [...] us Jett Heller MD ANESTHESIA ORDERABLES Joana carbajal Result [facility] POINT OF CARE documented in this encounter Visit Diagnoses Not on filedocumented in this encounter Administered Medications Inactive Administered Medications - up to 3 most recent administrations Medication Order MAR Action Action Date Dose Rate Site acetaminophen (OFIRMEV) IV solution intravenous, PRN, Starting on Sun07/02/24 at 1745, Until Sun07/02/24 at 1832, Routine, Anesthesia Intraprocedure Given 07/02/2024 17:45 EST 1,000 mg ceFAZolin (ANCEF) syringe 2 g 2 g, intravenous, Administer over 5 Minutes, PRE-OP ONCE, 1 dose, On Sun07/02/24 at 1230, Routine, Preprocedure Given 07/02/2024 15:32 EST 2 g diphenhydrAMINE (BENADRYL) injection intravenous, PRN, Starting on Sun07/02/24 at 1558, Until Sun07/02/24 at 1832, Routine, Anesthesia Intraprocedure Given 07/02/2024 15:58 EST 12.5 mg fentaNYL citrate (PF) injection intravenous, PRN, Starting on Sun07/02/24 at 1528, Until Sun07/02/24 at 1832, Routine, Anesthesia Intraprocedure Given 07/02/2024 15:28 EST 100 mcg HYDROmorphone (DILAUDUD) 2 mg/mL injection intravenous, PRN, Starting on Sun07/02/24 at 1606, Until Sun07/02/24 at 1832, Routine, Anesthesia Intraprocedure Given 07/02/2024 18:27 EST 0.4 mg Given 07/02/2024 17:23 EST 0.4 mg Given 07/02/2024 16:06 EST 0.6 mg ketAMINE in NaCl, iso-osmotic (KETALAR) 50 mg/5 mL (10 mg/mL) IV injection intravenous, PRN, Starting on Sun07/02/24 at 1528, Until Sun07/02/24 at 1832, Routine, Anesthesia Intraprocedure Given 07/02/2024 15:28 EST 50 mg ketOROLAC (TORADOL) injection intravenous, PRN, Starting on Sun07/02/24 at 1749, Until Sun07/02/24 at 1832, Routine, Anesthesia Intraprocedure Given 07/02/2024 17:49 EST 15 mg lactated ringers (LR) infusion intravenous, FA IP EQF CONTINUOUS PRN FOR ONE STEP MEDS, Starting on Sun07/02/24 at 1516, Until Sun07/02/24 at 1832, Routine, Anesthesia Intraprocedure New Bag 07/02/2024 15:16 EST lidocaine (PF) 20 mg/mL (2 %) injection intravenous, PRN, Starting on Sun07/02/24 at 1528, Until Sun07/02/24 at 1832, Routine, Anesthesia Intraprocedure Given 07/02/2024 15:28 EST 60 mg midazolam (PF) (VERSED) injection intravenous, PRN, Starting on Sun07/02/24 at 1522, Until Sun07/02/24 at 1832, Routine, Anesthesia Intraprocedure Given 07/02/2024 15:22 EST 2 mg ondansetron (PF) (ZOFRAN) injection intravenous, PRN, Starting on Sun07/02/24 at 1749, Until Sun07/02/24 at 1832, Routine, Anesthesia Intraprocedure Given 07/02/2024 17:49 EST 4 mg propOFol (DIPRIVAN) injection intravenous, PRN, Starting on Sun07/02/24 at 1529, Until Sun07/02/24 at 1832, Routine, Anesthesia Intraprocedure Rate Change 07/02/2024 18:01 EST 100 mcg/kg/min 43.26 mL/hr Rate Change 07/02/2024 17:55 EST 120 mcg/kg/min 51.912 mL/ hr New Bag 07/02/2024 15:30 EST 150 mcg/kg/min 64.89 mL/hr rocuronium (ZEMURON) injection intravenous, PRN, Starting on Sun07/02/24 at 1529, Until Sun07/02/24 at 1832, Routine, Anesthesia Intraprocedure Given 07/02/2024 15:40 EST 40 mg Given 07/02/2024 15:29 EST 60 mg sugammadex (BRIDION) injection intravenous, PRN, Starting on Sun07/02/24 at 1804, Until Sun07/02/24 at 1832, Routine, Anesthesia Intraprocedure Given 07/02/2024 18:04 EST 200 mg vecuronium (NORCURON) injection intravenous, PRN, Starting on Sun07/02/24 at 1605, Until Sun07/02/24 at 1832, Routine, Anesthesia Intraprocedure Given 07/02/2024 17:16 EST 3 mg Given 07/02/2024 16:47 EST 4 mg Given 07/02/2024 16:22 EST 3 mg documented in this encounter Care Teams Machinist Instructor Relationship Specialty Start Date End Date Rena Flower PA [address] [place] [address] [place] [phone] PCP - General Internal Medicine - Primary Care 06/24/24 documented as of this encounter
--- OUTSIDE RECORDS SUMMARY | 2024-09-08 15:03 | XMS_ITS | Encounter Summary ---
Author Organization [facility] Address [address] [place] [address] Care Team Providers Care Easter Bunny Name Role Phone Rena Flower Primary Care Provider + Reason for Referral * Specialty Diagnoses / Procedures Referred By Contac t Referred To Contact [address] [address] Phone: tel: Referral ID Status Reason Start Date Expiration Date Visits Re quested Visits Authorized * Specialty Diagnoses / Procedures Referred By Contac t Referred To Contact [address] [address] Phone: tel: Referral ID Status Reason Start Date Expiration Date Visits Re quested Visits Authorized Comments Call 911 anytime you think you may need emergency care. For example, call if: - You passed out (lost consciousness). - You have severe trouble breathing. - You have sudden chest pain and shortness of breath, or you cough up blood. Call your doctor now or seek immediate medical care if: - You have bright red vaginal bleeding that soaks one or more pads in an hour for two consecutive hours, or you have large clots. - You have foul-smelling discharge from your vagina. - You are sick to your stomach or cannot keep fluids down. - You have pain that does not get better after you take pain medicine. - You have loose stitches, or your incision comes open. - You have signs of infection, such as: - Increased pain, swelling, warmth, or redness. - Red streaks leading from the incision. - Pus draining from the incision. - A fever greater than 100.4 degrees F (38 degrees C). - You have signs of a blood clot, such as: - Pain in your calf, back of the knee, thigh, or groin. - Redness and swelling in your leg or groin. - You have trouble passing urine or stool, especially if you have pain or swelling in your lower belly. Watch closely for changes in your health, and be sure to contact your doctor if: - You do not have a bowel movement after taking a laxative. - You have hot flashes, sweating, flushing, or a fast heartbeat, but no fever. Reason for Visit * Auth/Cert (Routine) Specialty Diagnoses / Procedures Referred By Contjuanita t Referred To Contact Diagnoses Endometrial cancer ([facility]) Procedures MI LAPS TOTAL HYSTERECT 250 GM/< W/RMVL TUBE/OVARY MI INTRAOP SENTINEL LYMPH NODE ID W/DYE INJECTION MI LAPS BI TOT PEL LMPHADEC & OSBALDO-AORTIC LYMPH BX 1 MI LAPAROSCOPY TOT HYSTERECTOMY >250 G W/TUBE/OVAR MI CYSTOURETHROSCOPY Robotic assisted total laparoscopic hysterectomy, bilateral salpingo-oophorectomy injection of ICG dye bilateral sentinel lymph node dissection. Referral ID Status Reason Start Date Expiration Date Visits Re quested Visits Authorized [id number] 1 1 Encounter Details Date Type Department Care Team (Late st Contact Info) Description 07/02/2024 11:23 EST - 07/03/2024 13:45 EST Hospital Encounter [facility] [address], [place] [id number] Marianna Bansal MD [address] [place] [address], [facility] [address] [place] [address] Discharge Disposition: Home or Self Care Social History Tobacco Use Types Packs/Day Years Used Date Smoking Tobacco: Former Cigarettes 0.5 10 Smokeless Tobacco: Never Comments:Started and Stopped several times Alcohol Use Standard Drinks/Week Comments Yes 4 (1 standard drink = 0.6 oz pur e alcohol) [facility] Utilities Answer Date Recorded In the past [...] money to get more. Never true 07/03/2024 [facility] - Inadequate Housing Answer Date Re corded What is your living situation today? I have a [facility] place to live 07/03/[address] you li ve. Do you have problems with any of the following? None of the above 07/03/2024 [facility] - Transportation Answer Date Record ed In the past 12 months, has l ack of reliable transportation kept you from medical appointments, meetings, work or from getting things needed for daily living? No 07/03/2024 [facility] - Personal Safety Answer Date Recor ded [...] Sign Reading Time Taken Comments Blood Pressure 125/64 07/03/2024 1200 EST Pulse - - Temperature 36.8 ??C [...] Discharge Date: 07/03/24 Principal/Final Diagnosis: Endometrial cancer ([facility]) Chief Complaint: G3 endometrioid adenocarcinoma Principal Procedure: [...] 07/03/24 7:38 Obstetrics & Gynecology, PGY-1 Pager #[phone] & Tanvi Flanagan MD, PGY-2 Cosigned by [...] Take 1 Tablet by mouth daily. omega 4-gua-afj-fish oil 350 mg-235 mg- 90 mg-597 mg [...] Means Destination Comment s Home or Self [facility] documented in this encounter Progress Notes * Heidy Dunn - 07/03/2024 4962 EST Fatoumata Lewis 1965 Endometrial cancer ([facility]) Chart review completed and discussed the plan of care with the direct care RN and/or primary care team. Primary Insurance: [employer]4S Secondary Insurance: Patient with no apparent Case Management needs at this time. No housing, transportation, insurance,resources concerns identified at this time. Supports in place to achieve a safe post-hospital transition. No identified barriers to accessing necessary care and/or follow-up after discharge. This commercial lines underwriter learned pt has discharged 07/03/24 with [...] to monitorport-site hematoma. AVSS. 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 VTE Prophylaxis: Ambulation, SCD's Disposition: D/C home once tolerating po, pain well controlled, ambulating and voiding independently Katia Clark MD 07/03/24 6:32 Obstetrics & Gynecology, PGY-1 Pager #[phone] Cosigned by Marianna Bansal MD at 07/03/2024 8:50 EST * Anamaria Mejía RN - 07/02/2024 2240 EST FOUR EYES SKIN ASSESSMENT Four Eyes [...] Add LDA for any identified wounds Add [place] image for any suspected PI or non surgical wounds Order wound consult if suspected PI identified If Axel is < or = to 16, initiate Pressure Injury Prevention Bundle ([id number]). 07/02/2024 22:41 * Katie Lentz MD - 07/02/2024 2130 EST Gynecology Progress Note Service Date: 07/02/2024 [...] monitorport-site hematoma. AVSS. DTV at midnight. 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 Feeling well today. 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 Past Week omega 3-avv-jgf-fish oil 350 mg-235 mg- 90 mg-597 mg [...] Bansal. LIDIA JC MD 07/02/2024 14:51 Pager [phone] Cosigned by Marianna Bansal MD at 07/02/2024 19:04 EST documented in this encounter OR Notes * OR Surgeon - Lidia Jc MD - 07/02/2024 1818 EST Gynecologic Oncology Operative Note Date: 07/02/2024 Location: [facility] Main OR Name: Fatoumata Lewis : 1965 Diagnosis: Pre-Op: Endometrial Cancer Post-Op: same Procedures: Robotic-assisted total laparoscopic hysterectomy, bilateral salpingo- oophorectomy, ICG dye injection, bilateral sentinel lymph node biopsy, cystoscopy Surgeons: * Marianna Bansal MD - Primary * Lidia Jc MD - Resident - Assisting * Katia Clark MD - Resident - Assisting Staff: Body Art Technician: Dorothy Combs RN Relief Body Art Technician: Sylvia Law RN Relief Scrub: Rola Miller RN Scrub Person: Namita Mcclelladn RN Procedure Summary: Anesthesia: General - ET [...] 9 o'clock positions for a total of [id number]. A stay suture of 0-proline was placed [...] under direct visualization. The fascia of the assistant to the dean port was closed using 0- vicryl. The [...] Bansal MD * Plan of Care - Ibis Muir - 07/03/2024 1322 EST Data: POD #1 [...] Toradol and Tylenol given for pain. Provided [id number] instructions on how to administer Lovenox, watched [...] GLUCOSE Routine 07/02/2024 20: 32 EST NON ANIMAL STUNNER/FNA CYTOLOGY Routine 07/02/2024 16:29 EST SURGICAL PATHOLOGY [...] GRAMS 07/02/2024 15:06 EST Endometrial cancer (HCC-CMS) COMPLETE BLOOD COUNT Routine 07/02/2024 12:33 EST TYPE AND SCREEN Routine 07/02/2024 12:33 EST documented in this encounter Results * (ABNORMAL) COMPLETE BLOOD COUNT (07/03/2024 6:56 EST) WBC 7.41 4.00 - 12.40 K/cmm 07/03/2024 7:22 EST [facility] RBC 3.76(L) 3.86 - 5.04 M/cmm 07/03/2024 7:22 [facility] Hemoglobin 12.4 11.6 - 15.2 g/dL 07/03/2024 7:22 [facility] HCT 35.8 34.9 - 44.4 % 07/03/2024 7:22 [facility] MCV 95 81 - 98 fL 07/03/2024 7:22 [facility] MCH 33.0 26.7 - 33.3 pg 07/03/2024 7:22 [facility] MCHC 34.6 32.1 - 35.9 g/dL 07/03/2024 7:22 [facility] RDW-CV 13.2 <14.7 % 07/03/2024 7:22 [facility] RDW-SD 46.0 <50.4 fl 07/03/2024 7:22 [facility] PLT 232 141 - 377 K/cmm 07/03/2024 7:22 [facility] MPV 10.2 9.5 - 12.7 fL 07/03/2024 7:22 [facility] Blood VENOUS BLOOD / Unknown Venipuncture / Unknown 07/03/2024 6:56 EST 07/03/2024 7:14 EST Lidia Jc MD HEMATOLOGY & PF4 ORDERABLES Joana l Result [facility] [address] [place] [phone] * (ABNORMAL) SCREENING GLUCOSE (07/02/2024 20:32 EST) Glucose, Screening 140(H) 70 - 100 mg/dL 07/02/2024 21:08 EST [facility] Blood VENOUS BLOOD / Unknown Venipuncture / Unknown 07/02/2024 20:32 EST 07/02/2024 20:39 EST Lidia Jc MD CHEMISTRY & BLOOD GAS ORDERABLES Final Result [facility] [address] [place] [address] * NON ANIMAL STUNNER/FNA CYTOLOGY (07/02/2024 16:29 EST) Note to Patient The following pathology results have been interpreted by your pathologist and may be available to you before your health provider has had the opportunity to review them. Please allow time for your provider to receive these results and explore management options, if applicable. 07/03/2024 16:32 [facility] Final Diagnosis A. PERITONEAL WASHINGS, CUL DE SAC, CYTOLOGIC EVALUATION: - Negative for malignant cells. 07/03/2024 16:32 [facility] Attestation There was significant resident/yordy w involvement in the diagnostic evaluation of this case. By the signature below, the attending physician certifies that they have personally conducted a gross and/or microscopic examination of the described specimens and rendered or confirmed the above diagnosis. 07/03/2024 16:32 [facility] at 1632 Clinical History Endometrial cancer (HCC-CMS) 07/03/2024 16:32 [facility] Gross Description A. 200cc's of clear colorless fluid were received and processed by selective cellular enhancement technique. 07/03/2024 16:32 [facility] Resident/Yordy w: Billie Curry DO 07/03/2024 16:32 [facility] Performing Lab [facility] 07/03/2024 16:32 [facility] Scanned Images 07/03/2024 16:32 [facility] Wash PERITONEAL FLUID / Unknown 07/02/2024 16:29 EST 07/03/2024 6:50 EST us Marianna Bansal MD PATHOLOGY ORDERABLES Fi nal Result Performing Organization Address City/[facility]/ZIP Co de Phone Number [facility] [address] [place] [address] * SURGICAL PATHOLOGY (07/02/2024 16:[address] [facility]) Ancillary Studies Addendum At the request of Dr. Marianna Bansal, a block from [id number] (D3) was sent to [facility] for testing. For [facility] results, please see scanned report in EPIC. 07/29/2024 16:15 [facility] Addendum electronically signed by Viri Bradley MD on 07/29/2024 at 1615 Note to Patient The following pathology results have been interpreted by your pathologist and may be available to you before your health provider has had the opportunity to review them. Please allow time for your provider to receive these results and explore management options, if applicable. 07/29/2024 16:15 [facility] Final Diagnosis A. LYMPH NODE, [...] cysts. - Negative for malignancy. 07/29/2024 16:15 [facility] Diagnosis Comment Levels and pancytokeratin stains (AE1-AE3, [employer]) performed on all blocks of sentinel lymph nodes (A1-A3, B1-B3, C1-C3) are negative for carcinoma. Immunohistochemica l staining for mismatch repair (MMR) proteins for [place] Ahmadi Screening has been performed on a prior specimen which showed retained expression of all 4 MMR proteins. See [id number] for details. Immunoperoxidase stains were performed on [...] performance characteristics have been determined by [facility] and/or by the referring laboratory. The [...] high complexity clinical laboratory testing. 07/29/2024 16:15 [facility] Attestation There was significant resident/fellow involvement in the diagnostic evaluation of this case. By the signature below, the attending physician certifies that they have personally conducted a gross and/or microscopic examination of the described specimens and rendered or confirmed the above diagnosis. 07/29/2024 16:15 [facility] at 1259 Synoptic ENDOMETRIUM ENDOMETRIUM [...] Nodes Examined: ?6 ? Number of Pelvic Sherrill Nodes Examined: ?6 ? Total Number of Para-aortic Nodes Examined: ?1 ? Number of Para-aortic Sherrill Nodes Examined: ?1 pTNM CLASSIFICATION (AJCC 8th [...] STAGE ?? FIGO Stage: ?IIC 07/29/2024 16:15 [facility] Clinical History Endometrial cancer (HCC-CMS) 07/29/2024 16:15 [facility] Gross Description A. Received in [...] cut surface with a pinpoint lumen throughout. Roller Coaster Engineer sections are submitted as follows: BLOCK SPRING [...] BELGICA JACOBSON MD 07/03/2024 11:27 07/29/2024 16:15 [facility] Resident/Yordy w: Belgica Jacobson MD Raziel, Cassandra, MD 07/29/2024 16:15 [facility] Performing Lab [facility] 16:15 [facility] Scanned Images 07/29/2024 16:15 [facility] Tissue SENTINEL LYMPH NODE / [...] PATHOLOGY ORDERABLES Ed ited Result - Final [facility] [address] [place] [address] * COMPLETE BLOOD COUNT (07/02/2024 12:33 EST) WBC 4.86 4.00 - 12.40 K/cmm 07/02/2024 12:48 [facility] RBC 4.32 3.86 - 5.04 M/cmm 07/02/2024 12:48 [facility] Hemoglobin 13.7 11.6 - 15.2 g/dL 07/02/2024 12:48 [facility] HCT 40.1 34.9 - 44.4 % 07/02/2024 12:48 [facility] MCV 93 81 - 98 fL 07/02/2024 12:48 [facility] MCH 31.7 26.7 - 33.3 pg 07/02/2024 12:48 [facility] MCHC 34.2 32.1 - 35.9 g/dL 07/02/2024 12:48 [facility] RDW-CV 13.1 <14.7 % 07/02/2024 12:48 [facility] RDW-SD 44.6 <50.4 fl 07/02/2024 12:48 [facility] PLT 230 141 - 377 K/cmm 07/02/2024 12:48 [facility] MPV 10.2 9.5 - 12.7 fL 07/02/2024 12:48 [facility] Blood VENOUS BLOOD / Unknown Venipuncture / Unknown 07/02/2024 12:33 EST 07/02/2024 12:36 EST Lidia Jc MD HEMATOLOGY & PF4 ORDERABLES Joana l Result [facility] [address] [place] [address] * TYPE AND SCREEN (07/02/2024 12:33 EST) ABO B 07/02/2024 13:50 EST [facility] Rh Factor Positive 07/02/2024 13:50 EST [facility] Antibody Screen Negative 07/02/2024 13:50 EST [facility] Specimen Expires: 07/05/2024 @ 23:59 07/02/2024 13:50 EST [facility] Blood VENOUS BLOOD / Unknown Venipuncture / Unknown 07/02/2024 12:33 EST 07/02/2024 12:41 EST Lidia Jc MD BLOOD BANK TESTS Edited Result - Final Performing Organization Address City/State/[facility] Co de Phone Number [facility] [address] [place], [place] [id number] documented in this encounter Visit Diagnoses Diagnosis [...] mg Given 07/02/2024 21:13 EST 650 mg chlorhexidine gluconate 2 % cloth 1 Each 1 Each, topical, PRN, 1 dose, Starting on Sun07/02/24 at 1204, Until Sun07/02/24 at 1233, Other, PRN dose to be used if the patient did not apply first dose of chlorhexidine prior to arrival, Routine, Preprocedure Given 07/02/2024 12:33 EST 1 Each citalopram (CELEXA) tablet 20 mg 20 mg, oral, DAILY, First dose on Ira[place] 07/03/24 at 0900, Until Discontinued, Routine Given 07/03/2024 8:35 EST 20 mg diphenhydrAMINE (BENADRYL) capsule 25 mg 25 mg, oral, EVERY 6 HOURS PRN, Starting on Sun07/02/24 at 2020, Until Sun07/03/24 at 1545, Itching, Routine diphenhydrAMINE (BENADRYL) injection 25 mg 25 mg, intravenous, EVERY 6 HOURS PRN, Starting on Sun07/02/24 at 202, Until Sun07/03/24 at 1545, Itching, Routine docusate sodium (COLACE) capsule 100 mg 100 mg, oral, 2 TIMES DAILY, First dose on Sun07/02/24 at 2100, Until Discontinued, Routine Given 07/03/2024 8:35 EST 1 00 mg Given 07/02/2024 21:13 EST 100 mg [...] 2020, Until Sun07/03/24 at 1545, Pain, Routine HYDROmorphone (PF) (DILAUDID) 0.5 mg/0.5 mL syringe 0.3-0.6 mg 0.3-0.6 mg, intravenous, EVERY 3 HOURS PRN, Starting on Sun07/02/24 at 2021, Until Sun07/03/24 at 1545, Pain, Routine ibuprofen (MOTRIN) tablet 600 mg 600 mg, oral, EVERY 6 HOURS PRN, Starting on Sun07/03/24 at 2045, Until Sun07/03/24 at 1545, Mild Pain 1-3, Routine ketOROLAC (TORADOL) injection 15 mg 15 mg, [...] 202, Until Iraida 07/03/24 at 1545, Nausea, Vomiting, Routine ondansetron (ZOFRAN-ODT) disintegrating tablet 4 mg 4 mg, oral, EVERY 6 HOURS PRN, Starting on Sun07/02/24 at 202, Until [place] 07/03/24 at 1545, Nausea, Routine documented in this encounter Discontinued Medications Medication [...] 1230, Routine, Preprocedure 1532 (Given - Provider: Sho Mojica, DAVINA) citalopram (CELEXA) tablet 20 mg 20 mg, oral, DAILY, First dose on Ira[place] 07/03/24 at 0900, Until Discontinued, Routine 0835 (Given - Provid er: Srikanth Begum RN) docusate sodium (COLACE) capsule 100 mg 100 mg, oral, 2 TIMES DAILY, First dose on Sun07/02/24 at 2100, Until Discontinued, Routine 2112 (Given - Provider: Anamaria Mejía RN) 0835 (Given - Provider: Srikanth Begum RN) enoxaparin (LOVENOX) injection 40 mg 40 mg, subcutaneous, DAILY, First dose on Iraida 07/03/24 at 0900, Until Discontinued, Routine 0917 (Given [...] 6 HOURS, 4 doses, First dose on Iraida 07/03/24 at 0000, Last dose on Sun07/03/24 at [...] at 2021, Until [place] 07/03/24 at 1545, Itching, Routine [...] Recovery (only) 1846 (Given - Provider: Sampson a Atul, RN) HYDROmorphone (DILAUDID) tablet 2-4 mg(Linked Group 3) 2-4 mg, oral, EVERY 4 HOURS PRN, Starting on Sun07/02/24 at 2020, Until Sun07/03/24 at 1545, Pain, Routine HYDROmorphone (PF) (DILAUDID) 0.5 mg/0.5 mL syringe 0.3-0.6 mg(Linked Group 3) 0.3-0.6 mg, intravenous, EVERY 3 HOURS PRN, Starting on Sun07/02/24 at 2020, Until Sun07/03/24 at 1545, Pain, Routine ibuprofen [...] at 2020, Until [place] 07/03/24 at 1545, Nausea, Vomiting, Routine ondansetron (ZOFRAN-ODT) disintegrating tablet 4 mg(Linked Group 4) 4 mg, oral, EVERY 6 HOURS PRN, Starting on Sun07/02/24 at 2020, Until Sun07/03/24 at 1545, Nausea, Routine promethazine (PHENERGAN) tablet 12.5 mg 12.5 mg, oral, EVERY 6 HOURS PRN, Starting on Sun07/02/24 at 2020, Until Sun07/03/24 at 1545, Nausea, Routine sodium chloride 0.9 % irrigation (CANCELED) PRN, Starting on Sun07/02/24 at 1623, Until Sun07/02/24 at 1824, Routine, Intraprocedure 1623 (Given - Provider: Darci Bansal MD - Comment: to [employer] irrigation system) sterile water (bottle) irrigation (CANCELED) PRN, Starting on Sun07/02/24 at 1623, Until Sun07/02/24 at 1824, Intraprocedure 1623 (Given - Provider: Yamile Mcclelland RN - Comment: clean instruments)1722 (Given - Provider: Marianna Bansal MD - Comment: to ruddy irriagation for prn use per dr. bansal's request) [...] 202, Until Sun07/03/24 at 1545, Itching, Routine Or diphenhydrAMINE (BENADRYL) injection 25 mgJump to med 25 mg, intravenous, EVERY 6 HOURS PRN, Starting on Sun07/02/24 at 202, Until Sun07/03/24 at 1545, Itching, Routine Group 3: HYDROmorphone (PF) (DILAUDID) 0.5 mg/0.5 mL syringe 0.3-0.6 mgJump to med 0.3-0.6 mg, intravenous, EVERY 3 HOURS PRN, Starting on Sun07/02/24 at 202, Until Sun07/03/24 at 1545, Pain, Routine Or HYDROmorphone (DILAUDID) tablet 2-4 mgJump to med 2-4 mg, oral, EVERY 4 HOURS PRN, Starting on Sun07/02/24 at 202, Until Sun07/03/24 at 1545, Pain, Routine Group 4: ondansetron (PF) (ZOFRAN) injection 4 mgJump to med 4 mg, intravenous, EVERY 6 HOURS PRN, Starting on Sun07/02/24 at 2020, Until [place] 07/03/24 at 1545, Nausea, Vomiting, Routine Or ondansetron (ZOFRAN-ODT) disintegrating tablet 4 mgJump to med 4 mg, oral, EVERY 6 HOURS PRN, Starting on Sun07/02/24 at 2020, Until [place] 07/03/24 at 1545, Nausea, Routine documented in this encounter Orders Medications Ordered That João ht Not Have Been Administered Count Last Ordered Date First Ordered Date atropine 0.1 mg/mL syringe 0.5 mg 1 024 BUPivacaine (PF) (MARCAINE) 0.25 % (2.5 mg/mL) injection 1 07/02/2024 ceFAZolin (ANCEF) syringe 2 g 1 07/02/2024 [...] ibuprofen (MOTRIN) tablet 600 mg 1 07/02/20 indocyanine green (IC-GREEN) injection 1 lidocaine (PF) 10 mg/mL (1 % ) injection 2 mg 1 07/02/2024 metoclopramide (REGLAN) injection 10 mg 1 1 09/01/2023 naloxone (NARCAN) injection 0.2 mg 1 2023 ondansetron (PF) (ZOFRAN) injection 4 mg 2 07/02/2024 ondansetron (ZOFRAN-ODT) dis integrating tablet 4 mg 1 07/02/2024 promethazine (PHENERGAN) tablet 12.5 mg 1 1 09/01/2023 sodium chloride 0.9 % irrigation 1 07/02/20 sterile water (bottle) irrigation 1 024 Diet Count Last Ordered Date First Orde red Date DISCHARGE DIET 1 07/03/2024 Nursing Count Last Ordered Date First Orde red Date WOUND CARE INSTRUCTIONS 1 07/03/2024 Discharge Count Last Ordered Date First Orde red Date DISCHARGE PATIENT 1 07/03/2024 documented in this encounter Care Teams Easter Bunny Relationship Specialty Start Date End Date Rena Flower PA [address] [place] [address] [place] [address] PCP - General Internal Medicine - Primary Care 06/24/24 documented as of this encounter
== END 2024-09-08 14:59 | disposition home or self-care (01) ==
LOC: LBO 15:00
PROVIDERS: Visit Provider Radiology Radiation Oncology
DX: C54.1 Malignant neoplasm of endometrium (principal)
CPT/HCPCS: 36415; 82565